=== PATIENT | female | born 1945 | race Caucasian/White ===

== ENCOUNTER 2018-01-23 20:05 | Inpatient (IN) | payer OTHER ==
[~2018-01-23] VITALS: Ht 165.1 cm; Wt 74.8 kg
[~2018-01-23 20:05] MED LIST: ALBU18HF IH; AZIT250T PO; CITA10TA8 PO; TIOT18CA IH
--- NOTE | 2018-01-23 20:22 | ED.ADGEN ---
Past History Past Medical History: Angina, CAD, CVA, Diabetes, Hypertension, UTI, Other Adult General Chief Complaint Chief Complaint ".. I been having some chest pain.. or discomfort... just cant get comfortable...".." I ate some meat loaf.. but this discomfort started about 5... " HPI HPI Patient is a 72 year old female who presents with above hx and chest pain. Pt. rates her pain as 6/10, central and non radiating. Nothing seemed to help the discomfort. Pt. no longer smokes. Pt. denies prior cardiac hx. Does have hx of prior CVA and HTN. Pt. has followed with Dr. Salinas and also has seen Marivel Guillermo. Pt,. denies any trauma. No hx of travel or ill contacts. No fevers or cough. Review of Systems Review of Systems Constitutional: Denies fever or chills [] Eyes: Denies change in visual acuity, redness, or eye pain [] HENT: Denies nasal congestion or sore throat [] Respiratory: Denies cough or shortness of breath [] Cardiovascular: No additional information not addressed in HPI [] GI: Denies abdominal pain, nausea, vomiting, bloody stools or diarrhea [] : Denies dysuria or hematuria [] Musculoskeletal: Denies back pain or joint pain [] Integument: Denies rash or skin lesions [] Neurologic: Denies headache, focal weakness or sensory changes [] Endocrine: Denies polyuria or polydipsia [] All other systems were reviewed and found to be within normal limits, except as documented in this note. Family History Family History Non-contributory Current Medications Current Medications Current Medications Medications (Trade) Dose Ordered Sig/Edmond Start Time Stop Time Status Last Admin Dose Admin Aspirin (Children'S Aspirin) 324 mg 1X ONCE 01/23/18 21:00 01/23/18 21:01 DC Ceftriaxone Sodium 1 gm/ Sodium Chloride 50 ml @ 100 mls/hr 1X ONCE 01/23/18 22:30 01/23/18 22:59 UNV Morphine Sulfate (Morphine 2mg Syringe) 2 mg 1X ONCE 01/23/18 21:00 01/23/18 21:01 DC Nitroglycerin (Nitro-Bid Oint) 1 inch 1X ONCE 01/23/18 21:00 01/23/18 21:01 DC 01/23/18 21:00 0.5 INCH Sodium Chloride 1,000 ml @ 100 mls/hr Q10H 01/23/18 21:00 01/24/18 06:59 01/23/18 20:49 100 MLS/HR Allergies Allergies Ibuprofen Physical Exam Physical Exam Constitutional: Moderately acute distress, non-toxic appearance. [] HENT: Normocephalic, atraumatic, bilateral external ears normal, oropharynx moist, no oral exudates, nose normal. [] Eyes: PERRLA, EOMI, conjunctiva normal, no discharge. [] Neck: Normal range of motion, no tenderness, supple, no stridor. [] Cardiovascular: Tachycardic Heart rate regular rhythm, no murmur [] Lungs & Thorax: Bilateral breath sounds equal at apex with min. wheeze on auscultation [] Abdomen: Bowel sounds normal, soft, no tenderness, no masses, no pulsatile masses. [] Skin: Warm, dry, no erythema, no rash. [] Back: No tenderness, no CVA tenderness. [] Extremities: No tenderness, no cyanosis, no clubbing, ROM intact, no edema. [] No cording appreciated. Arthritic changes. Neurologic: Alert and oriented X 3, normal motor function, normal sensory function, no focal deficits noted. [] Psychologic: Affect anxious, judgement normal, mood normal. [] Current Patient Data Vital Signs Vital Signs Date Time Temp Pulse Resp B/P (MAP) Pulse Ox O2 Delivery O2 Flow Rate FiO2 01/23/18 22:00 65 20 121/51 (74) 96 Room Air 01/23/18 20:05 97.6 Lab Results Laboratory Tests Test 01/23/18 20:39 01/23/18 21:21 White Blood Count 10.0 x10^3/uL (4.0-11.0) Red Blood Count 4.55 x10^6/uL (3.50-5.40) Hemoglobin 14.2 g/dL (12.0-15.5) Hematocrit 41.8 % (36.0-47.0) Mean Corpuscular Volume 92 fL (79-100) Mean Corpuscular Hemoglobin 31 pg (25-35) Mean Corpuscular Hemoglobin Concent 34 g/dL (31-37) Red Cell Distribution Width 13.9 % (11.5-14.5) Platelet Count 217 x10^3/uL (140-400) Neutrophils (%) (Auto) 58 % (31-73) Lymphocytes (%) (Auto) 33 % (24-48) Monocytes (%) (Auto) 7 % (0-9) Eosinophils (%) (Auto) 2 % (0-3) Basophils (%) (Auto) 1 % (0-3) Neutrophils # (Auto) 5.7 x10^3uL (1.8-7.7) Lymphocytes # (Auto) 3.3 x10^3/uL (1.0-4.8) Monocytes # (Auto) 0.7 x10^3/uL (0.0-1.1) Eosinophils # (Auto) 0.2 x10^3/uL (0.0-0.7) Basophils # (Auto) 0.1 x10^3/uL (0.0-0.2) Prothrombin Time 10.7 SEC (9.4-11.4) Prothrombin Time INR 1.0 (0.9-1.1) PTT 27 SEC (23-33) D-Dimer (Ruthie) 0.63 mg/L (0.00-0.50) H Sodium Level 142 mmol/L (136-145) Potassium Level 3.5 mmol/L (3.5-5.1) Chloride Level 106 mmol/L (98-107) Carbon Dioxide Level 27 mmol/L (21-32) Anion Gap 9 (6-14) Blood Urea Nitrogen 16 mg/dL (7-20) Creatinine 1.0 mg/dL (0.6-1.0) Estimated GFR (Cockcroft-Gault) 54.3 Glucose Level 129 mg/dL (70-99) H Calcium Level 8.4 mg/dL (8.5-10.1) L Magnesium Level 1.9 mg/dL (1.8-2.4) Total Bilirubin 0.3 mg/dL (0.2-1.0) Direct Bilirubin 0.1 mg/dL (0.0-0.2) Aspartate Amino Transferase (AST) 15 U/L (15-37) Alanine Aminotransferase (ALT) 19 U/L (14-59) Alkaline Phosphatase 100 U/L (46-116) Creatine Kinase 45 U/L (26-192) Creatine Kinase MB (Mass) 0.5 ng/mL (0.0-3.6) Creatine Kinase MB Relative Index 1.1 % (0-4) Troponin I Quantitative < 0.017 ng/mL (0-0.055) PN-Gte-I-Type Natriuretic Peptide 112 pg/mL (0-124) Total Protein 7.1 g/dL (6.4-8.2) Albumin 3.4 g/dL (3.4-5.0) Lipase 175 U/L (73-393) Urine Collection Type Unknown Urine Color Yellow Urine Clarity Clear Urine pH 6.0 Urine Specific [place] 1.025 Urine Protein Neg (NEG-TRACE) Urine Glucose (UA) Neg mg/dL (NEG) Urine Ketones (Stick) Trace mg/dL (NEG) Urine Blood Neg (NEG) Urine Nitrite Pos (NEG) Urine Bilirubin Neg (NEG) Urine Urobilinogen Dipstick 0.2 mg/dL (0.2 mg/dL) Urine Leukocyte Esterase Trace (NEG) Urine RBC Occ /HPF (0-2) Urine WBC 5-10 /HPF (0-4) Urine Squamous Epithelial Cells Occ /LPF Urine Bacteria Mod /HPF (0-FEW) Urine Mucus Mod /LPF Urine Opiates Screen Neg (NEG) Urine Methadone Screen Neg (NEG) Urine Barbiturates Neg (NEG) Urine Phencyclidine Screen Neg (NEG) Urine Amphetamine/Methamphetamine Neg (NEG) Urine Benzodiazepines Screen Neg (NEG) Urine Cocaine Screen Neg (NEG) Urine Cannabinoids Screen Neg (NEG) Urine Ethyl Alcohol Neg (NEG) EKG EKG My interpretation of EKG shows a sinus rhythm at 95 bpm. There IS SOME NONSPECIFIC ANTERIOR LATERAL CHANGES. BUT NO FINDINGS OF ACUTE STEMI OF CONTRALATERAL CHANGES. THERE IS SOME BASELINE ARTIFACT[] Radiology/Procedures Radiology/Procedures My interpretation of chest x-ray shows no acute cardiopulmonary[] changes. Does have findings of somewhat emphysematous type pattern. Does have findings of degenerative joint changes. Course & Med Decision Making Course & Med Decision Making Pertinent Labs and Imaging studies reviewed. (See chart for details). Stress presentation, testing and treatment plan with Dr. Salinas. Will admit for further evaluation and treatment. Consult placed with cardiology. [] Final Impression Final Impression 1. Chest Pain[] 2. HTN 3. Elevated D-dimer 4. DM 5. UTI 6. Hx. CVA Problems: Dragon Disclaimer Dragon Disclaimer This electronic medical record was generated, in whole or in part, using a voice recognition dictation system. DARELL GOVEA MD Jan 23, 2018 20:22
[2018-01-23] MEDS ORDERED: MORPHINE SULFATE 2 MG/ML DISP.SYRIN. IV ONE (21:00)
[2018-01-23] MEDS ORDERED: ASPIRIN 81 MG TAB.CHEW PO ONE (21:00)
[2018-01-23] MEDS ORDERED: IV NORMAL SALINE 1,000ML 1,000 ML IV SCH (21:00)
[2018-01-23] MEDS ORDERED: NITROGLYCERIN OINT 1 GM PACKET. TP ONE (21:00)
[2018-01-23 21:02] LABS: BASO # 0.1 x10^3/uL (0.0-0.2); BASO % 1 % (0-3); EOS # 0.2 x10^3/uL (0.0-0.7); EOS % 2 % (0-3); HEMATOCRIT 41.8 % (36.0-47.0); HEMOGLOBIN 14.2 g/dL (12.0-15.5); LYMPH # 3.3 x10^3/uL (1.0-4.8); LYMPH % 33 % (24-48); MEAN CORPUSCULAR HEMOGLOBIN 31 pg (25-35); MEAN CORPUSCULAR HGB CONC 34 g/dL (31-37); MEAN CORPUSCULAR VOLUME 92 fL (79-100); MONO # 0.7 x10^3/uL (0.0-1.1); MONO % 7 % (0-9); NEUT # 5.7 x10^3uL (1.8-7.7); NEUT % 58 % (31-73); PLATELET COUNT 217 x10^3/uL (140-400); RED BLOOD COUNT 4.55 x10^6/uL (3.50-5.40); RED CELL DISTRIBUTION WIDTH 13.9 % (11.5-14.5)
[2018-01-23 21:19] LABS: DIRECT BILIRUBIN 0.1 mg/dL (0.0-0.2); GFR 54.3; POTASSIUM 3.5 mmol/L (3.5-5.1); TOTAL BILIRUBIN 0.3 mg/dL (0.2-1.0); TOTAL PROTEIN 7.1 g/dL (6.4-8.2)
[2018-01-23 21:27] LABS: ALBUMIN 3.4 g/dL (3.4-5.0); CALCIUM 8.4 mg/dL (8.5-10.1); MAGNESIUM 1.9 mg/dL (1.8-2.4)
--- NOTE | 2018-01-23 21:33 | EKG ---
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
[2018-01-23 21:48] LABS: BARBITURATES NEG (NEG); BENZODIAZEPINES NEG (NEG); CANNABINOIDS NEG (NEG); COCAINE NEG (NEG); METHADONE NEG (NEG); OPIATES NEG (NEG); PHENCYCLIDINE NEG (NEG)
[2018-01-23 21:54] LABS: AMPHETAMINE/METHAMPHETAMINE NEG (NEG)
[2018-01-23 22:07] LABS: BACTERIA,URINE MOD /HPF (0-FEW); BILIRUBIN,URINE NEG (NEG); CLARITY,URINE CLEAR; GLUCOSE,URINE NEG (NEG); NITRITE,URINE POS (NEG); RBC,URINE OCC /HPF (0-2); SQUAMOUS EPITHELIAL CELL,UR OCC /LPF; UROBILINOGEN,URINE 0.2 mg/dL (0.2 mg/dL)
[2018-01-23 22:08] LABS: COLOR,URINE YELLOW
[2018-01-23] MEDS ORDERED: cefTRIAXone IV Push 1 GM VIAL. IVP ONE (22:45)
[2018-01-23] MEDS ORDERED: ONDANSETRON PF 4 MG/2 ML VIAL. IV PRN (22:45)
[2018-01-23] MEDS ORDERED: IOHEXOL 300 MG/ML 75 ML VIAL. IV ONE (23:00)
[2018-01-23] MEDS ORDERED: CONTRAST GIVEN MC PRN (23:00)
[2018-01-23] MEDS ORDERED: ANTI-COAG MONITOR BY PHARMACY. MC PRN (23:00)
[2018-01-23] MEDS ORDERED: IV RINGERS SOLUTION,LACTATED 1,000 ML IV ONE (23:00)
[2018-01-23] MEDS ORDERED: ENOXAPARIN ** NOTE DOSE ** SYRINGE SQ ONE (23:00)
--- NOTE | 2018-01-24 00:02 | RAD ---
CTA Chest with contrast: Clinical History: NO PREVIOUS FOR COMPARISON
GAVE OMNI 300 75ML IV
CHEST PAIN, ELEVATED DDIMER Shortness of breath. Axial helical images of the chest were obtained after the administration of 75 milliliters of Omni 300 and timed appropriately for a pulmonary arterial study. Conventional axial reconstruction was performed in addition to coronal, sagittal and bilateral oblique MIP (maximum intensity projection). This study was ordered to detect possible pulmonary embolism. There are no filling defects to suggest pulmonary embolism. The more peripheral subsegmental pulmonary arteries are not well opacified limiting our sensitivity for small peripheral pulmonary emboli. The lungs and pleural margins are clear. There is no mediastinal or hilar lymphadenopathy. The thoracic aorta appears normal. Impression: 1. No evidence of pulmonary embolism. 2. No significant findings. PQRS Compliance Statement: One or more of the following individualized dose reduction techniques were utilized for this examination: 1. Automated exposure control 2. Adjustment of the mA and/or kV according to patient size 3. Use of iterative reconstruction technique Electronically signed by: Farshad Rubalcava III, MD (01/23/2018 11:58 PM) [id number]
[2018-01-24 00:18] VITALS: BP 159/71
[2018-01-24] MEDS ORDERED: ATOR40TA59 PO (00:49)
[2018-01-24] MEDS ORDERED: ASPI81TA50 PO (00:49)
[2018-01-24 05:34] VITALS: BP 135/83
[2018-01-24 06:13] LABS: BASO # 0.1 x10^3/uL (0.0-0.2); BASO % 1 % (0-3); EOS # 0.2 x10^3/uL (0.0-0.7); EOS % 2 % (0-3); HEMATOCRIT 37.9 % (36.0-47.0); HEMOGLOBIN 13.1 g/dL (12.0-15.5); LYMPH # 3.2 x10^3/uL (1.0-4.8); LYMPH % 30 % (24-48); MEAN CORPUSCULAR HEMOGLOBIN 32 pg (25-35); MEAN CORPUSCULAR HGB CONC 34 g/dL (31-37); MEAN CORPUSCULAR VOLUME 92 fL (79-100); MONO # 0.8 x10^3/uL (0.0-1.1); MONO % 8 % (0-9); NEUT # 6.2 x10^3uL (1.8-7.7); NEUT % 59 % (31-73); PLATELET COUNT 195 x10^3/uL (140-400); RED BLOOD COUNT 4.11 x10^6/uL (3.50-5.40); WHITE BLOOD COUNT 10.5 x10^3/uL (4.0-11.0)
[2018-01-24 06:17] LABS: CREATININE 0.7 mg/dL (0.6-1.0); POTASSIUM 3.7 mmol/L (3.5-5.1)
--- NOTE | 2018-01-24 08:11 | RAD ---
Portable chest, 01/23/2018: History: Chest pain The heart size and pulmonary vascularity are normal. No pulmonary infiltrate is seen. There is no evidence of pleural fluid. IMPRESSION: No acute cardiopulmonary abnormality is detected.
[2018-01-24] MEDS ORDERED: ALBUTEROL SULFATE 2.5 MG/3 ML NEBU. NEB PRN (09:00)
[2018-01-24] MEDS: NITROGLYCERIN OINT 1 GM PACKET. TP SCH ×4 (09:00→20:25)
[2018-01-24] MEDS ORDERED: ENOXAPARIN ** NOTE DOSE ** SYRINGE SQ SCH (09:00)
[2018-01-24] MEDS ORDERED: ASPIRIN 81 MG TAB.CHEW PO SCH (09:00)
--- NOTE | 2018-01-24 09:03 | PDOC2 ---
MARISSA ROBERTS APRN 01/24/18 0903: CONSULT Date of Admission DATE: 01/24/18 TIME: 09:02 Reason for Consult: chest pain Problem List Problems Medical Problems: (1) Chest pain Status: Acute History of Present Illness Ms Carter is a 72 year old female with history of hyperlipidemia who presents with complaints of chest pain. She reports pain in her upper midsternal area, sharp in nature that started while at rest. She denies any exacerbating or relieving factors and reports pain has been constant and is improved but still present. She denies any prior episodes of chest pain or discomfort. She reports dyspnea on exertion with ambulating 20 feet to bathroom and back. She reports a decline in functional capacity secondary to fatigue and dyspnea over the last 3-6 months. She is able to vacuum in her home about 1/3 of a room prior to needing to sit. 1 year ago she reports no issues. She denies congestive symptoms, palpitations, lightheadedness or syncope. She ambulates with a walker due to instability. She reports 4 falls in the last year. Past Medical History hyperlipidemia, CVA, breast cancer, UTI Past Surgical History: Appendectomy, Cholecystectomy Family History cancer Social History prior smoker, quit 2015, no ETOH or illicit drugs Current Medications Current Medications Aspirin (Children'S Aspirin) 324 mg 1X ONCE PO ; Start 01/23/18 at 21:00; Stop 01/23/18 at 21:01; Status DC Morphine Sulfate (Morphine 2mg Syringe) 2 mg 1X ONCE IV ; Start 01/23/18 at 21: 00; Stop 01/23/18 at 21:01; Status DC Sodium Chloride 1,000 ml @ 100 mls/hr Q10H IV Last administered on 01/23/18at 20:49; Start 01/23/18 at 21:00; Stop 01/24/18 at 07:00; Status DC Nitroglycerin (Nitro-Bid Oint) 1 inch 1X ONCE TP Last administered on at 21:00; Start 01/23/18 at 21:00; Stop 01/23/18 at 21:01; Status DC Enoxaparin Sodium (Lovenox 80mg Syringe) 80 mg 1X ONCE SQ Last administered on 01/23/18at 23:09; Start 01/23/18 at 23:00; Stop 01/23/18 at 23:01; Status DC Ceftriaxone Sodium 1 gm/ Sodium Chloride 50 ml @ 100 mls/hr 1X ONCE IV ; Start 01/23/18 at 22:30; Stop 01/23/18 at 22:59; Status UNV Ceftriaxone Sodium (Rocephin) 1 gm 1X ONCE IVP Last administered on 01/23/18at 23:09; Start 01/23/18 at 22:45; Stop 01/23/18 at 22:46; Status DC Ondansetron HCl (Zofran) 4 mg PRN Q4HRS PRN IV NAUSEA/VOMITING 1ST CHOICE; Start 01/23/18 at 22:45; Stop 01/24/18 at 22:44 Aspirin (Children'S Aspirin) 81 mg DAILY PO ; Start 01/24/18 at 09:00; Stop at 09:00; Status DC Enoxaparin Sodium (Lovenox 80mg Syringe) 80 mg BID SQ ; Start 01/24/18 at 09:00 ; Stop 01/24/18 at 09:00; Status DC Nitroglycerin (Nitro-Bid Oint) 0.5 inch TID TP ; Start 01/24/18 at 09:00 Ceftriaxone Sodium 1 gm/ Sodium Chloride 50 ml @ 100 mls/hr DAILY IV ; Start at 09:00; Status UNV Lactated Ringer's 1,000 ml @ 1,000 mls/hr 1X ONCE IV Last administered on at 23:00; Start 01/23/18 at 23:00; Stop 01/23/18 at 23:59; Status DC Info (Anti-Coagulation Monitoring By Pharmacy) 1 each PRN DAILY PRN MC SEE COMMENTS; Start 01/23/18 at 23:00 Ceftriaxone Sodium (Rocephin) 1 gm Q24H IVP ; Start 01/24/18 at 21:00 Lactobacillus Rhamnosus (Culturelle) 1 cap BID PO ; Start 01/24/18 at 09:00 Iohexol (Omnipaque 300 Mg/ml) 75 ml 1X ONCE IV Last administered on 01/23/18at 23:17; Start 01/23/18 at 23:00; Stop 01/23/18 at 23:01; Status DC Info (Do NOT chart on this entry -- for MONITORING) 1 each PRN DAILY PRN MC SEE COMMENTS; Start 01/23/18 at 23:00; Stop 01/25/18 at 22:59 Aspirin (Aspirin Enteric Coated) 81 mg DAILY PO ; Start 01/24/18 at 09:00 Atorvastatin Calcium (Lipitor) 40 mg QHS PO ; Start 01/24/18 at 21:00 Enoxaparin Sodium (Lovenox) 40 mg Q24H SQ ; Start 01/24/18 at 21:00 Albuterol/ Ipratropium (Duoneb) 3 ml RTQID NEB ; Start 01/24/18 at 12:00 Albuterol Sulfate (Ventolin) 2.5 mg PRN Q6HRS PRN NEB SHORTNESS OF BREATH; Start 01/24/18 at 09:00 Active Scripts Active Reported Aspir-Low (Aspirin) 81 Mg Tablet.dr 1 Tab PO DAILY Atorvastatin Calcium 40 Mg Tablet 1 Tab PO HS Allergies: Coded Allergies: ibuprofen (Verified Allergy, Intermediate, 01/23/18) Review of System as per HPI or negative General: Alert, Oriented X3, Cooperative, mild distress HEENT: Atraumatic, EOMI Lungs: Other (decreased bilaterally without crackles, wheezing or rhonchi) Heart: Regular rate, Normal S1, Normal S2 Abdomen: Normal bowel sounds, Soft, No tenderness Extremities: No cyanosis, No edema, Normal pulses Neuro: Normal speech, Strength at 5/5 X4 ext Psych/Mental Status: Mental status NL, Mood NL VITALS Vital Signs Date Time Temp Pulse Resp B/P (MAP) Pulse Ox O2 Delivery O2 Flow Rate FiO2 01/24/18 05:34 97.5 68 18 135/83 (100) 95 Room Air Labs Laboratory Tests Test 01/23/18 20:39 01/23/18 21:21 01/24/18 04:00 01/24/18 05:43 White Blood Count 10.0 x10^3/uL (4.0-11.0) 10.5 x10^3/uL (4.0-11.0) Red Blood Count 4.55 x10^6/uL (3.50-5.40) 4.11 x10^6/uL (3.50-5.40) Hemoglobin 14.2 g/dL (12.0-15.5) 13.1 g/dL (12.0-15.5) Hematocrit 41.8 % (36.0-47.0) 37.9 % (36.0-47.0) Mean Corpuscular Volume 92 fL (79-100) 92 fL (79-100) Mean Corpuscular Hemoglobin 31 pg (25-35) 32 pg (25-35) Mean Corpuscular Hemoglobin Concent 34 g/dL (31-37) 34 g/dL (31-37) Red Cell Distribution Width 13.9 % (11.5-14.5) 14.0 % (11.5-14.5) Platelet Count 217 x10^3/uL (140-400) 195 x10^3/uL (140-400) Neutrophils (%) (Auto) 58 % (31-73) 59 % (31-73) Lymphocytes (%) (Auto) 33 % (24-48) 30 % (24-48) Monocytes (%) (Auto) 7 % (0-9) 8 % (0-9) Eosinophils (%) (Auto) 2 % (0-3) 2 % (0-3) Basophils (%) (Auto) 1 % (0-3) 1 % (0-3) Neutrophils # (Auto) 5.7 x10^3uL (1.8-7.7) 6.2 x10^3uL (1.8-7.7) Lymphocytes # (Auto) 3.3 x10^3/uL (1.0-4.8) 3.2 x10^3/uL (1.0-4.8) Monocytes # (Auto) 0.7 x10^3/uL (0.0-1.1) 0.8 x10^3/uL (0.0-1.1) Eosinophils # (Auto) 0.2 x10^3/uL (0.0-0.7) 0.2 x10^3/uL (0.0-0.7) Basophils # (Auto) 0.1 x10^3/uL (0.0-0.2) 0.1 x10^3/uL (0.0-0.2) Prothrombin Time 10.7 SEC (9.4-11.4) Prothromb Time International Ratio 1.0 (0.9-1.1) Activated Partial Thromboplast Time 27 SEC (23-33) D-Dimer (Ruthie) 0.63 mg/L (0.00-0.50) Sodium Level 142 mmol/L (136-145) 143 mmol/L (136-145) Potassium Level 3.5 mmol/L (3.5-5.1) 3.7 mmol/L (3.5-5.1) Chloride Level 106 mmol/L (98-107) 108 mmol/L (98-107) Carbon Dioxide Level 27 mmol/L (21-32) 28 mmol/L (21-32) Anion Gap 9 (6-14) 7 (6-14) Blood Urea Nitrogen 16 mg/dL (7-20) 12 mg/dL (7-20) Creatinine 1.0 mg/dL (0.6-1.0) 0.7 mg/dL (0.6-1.0) Estimated GFR (Cockcroft-Gault) 54.3 82.0 Glucose Level 129 mg/dL (70-99) 88 mg/dL (70-99) Calcium Level 8.4 mg/dL (8.5-10.1) 8.0 mg/dL (8.5-10.1) Magnesium Level 1.9 mg/dL (1.8-2.4) Total Bilirubin 0.3 mg/dL (0.2-1.0) Direct Bilirubin 0.1 mg/dL (0.0-0.2) Aspartate Amino Transf (AST/SGOT) 15 U/L (15-37) Alanine Aminotransferase (ALT/SGPT) 19 U/L (14-59) Alkaline Phosphatase 100 U/L (46-116) Creatine Kinase 45 U/L (26-192) Creatine Kinase MB (Mass) 0.5 ng/mL (0.0-3.6) Creatine Kinase MB Relative Index 1.1 % (0-4) Troponin I Quantitative < 0.017 ng/mL (0-0.055) < 0.017 ng/mL (0-0.055) QL-Cnk-S-Type Natriuretic Peptide 112 pg/mL (0-124) Total Protein 7.1 g/dL (6.4-8.2) Albumin 3.4 g/dL (3.4-5.0) Lipase 175 U/L (73-393) Urine Collection Type Unknown Urine Color Yellow Urine Clarity Clear Urine pH 6.0 Urine Specific [place] 1.025 Urine Protein Neg (NEG-TRACE) Urine Glucose (UA) Neg mg/dL (NEG) Urine Ketones (Stick) Trace mg/dL (NEG) Urine Blood Neg (NEG) Urine Nitrite Pos (NEG) Urine Bilirubin Neg (NEG) Urine Urobilinogen Dipstick 0.2 mg/dL (0.2 mg/dL) Urine Leukocyte Esterase Trace (NEG) Urine RBC Occ /HPF (0-2) Urine WBC 5-10 /HPF (0-4) Urine Squamous Epithelial Cells Occ /LPF Urine Bacteria Mod /HPF (0-FEW) Urine Mucus Mod /LPF Urine Opiates Screen Neg (NEG) Urine Methadone Screen Neg (NEG) Urine Barbiturates Neg (NEG) Urine Phencyclidine Screen Neg (NEG) Urine Amphetamine/Methamphetamine Neg (NEG) Urine Benzodiazepines Screen Neg (NEG) Urine Cocaine Screen Neg (NEG) Urine Cannabinoids Screen Neg (NEG) Urine Ethyl Alcohol Neg (NEG) Images CXR - no acute abn, EKG- sinus rhythm without acute ischemic changes, CTA- Impression: 1. No evidence of pulmonary embolism. 2. No significant findings. Assessment/Plan 1. Chest pain, typical - CE negative x2, EKG without acute ischemic changes 2. dyspnea on exertion - suggest 6 min walk and consider outpatient PFT 3. hyperlipidemia - check lipids, continue statin 4. UTI - per PCP Suggest echocardiogram for LV function and wall motion and 6 minute walk. If no significant abnormalities would suggest MPI as dyspnea could be anginal equivalent. Continue aspirin and statin and check lipids. Consider beta vahid after 6 min walk. Problems: BRO DE LA GARZA MD 01/24/18 1625: CONSULT Allergies: Coded Allergies: ibuprofen (Verified Allergy, Intermediate, 01/23/18) Assessment/Plan Patient seen and examined. Agree with [employer]INEER's assessment and plan. Chest pain with mixed features. Myocardial infarction been ruled out. Check 2-D echo to assess LV systolic function and Lexiscan nuclear stress test to rule out ischemia. Thank you for your consultation. Problems: MARISSA ROBERTS APRN Jan 24, 2018 09:03 BRO DE LA GARZA MD Jan 24, 2018 16:25
[2018-01-24] MEDS: ASPIRIN ENTERIC COATED 81 MG TABLET.DR. PO SCH (09:05)
[2018-01-24] MEDS: LACTOBACILLUS RHAMNOSUS GG 1 CAPSULE. PO SCH ×2 (09:05→20:24)
[2018-01-24] MEDS ORDERED: IPRATRPIUM/ALBUTEROL 0.5/2.5MG 3 ML NEBU. ONE (09:27)
[2018-01-24] MEDS: IPRATRPIUM/ALBUTEROL 0.5/2.5MG 3 ML NEBU. NEB SCH ×3 (09:48→20:00)
[2018-01-24 11:14] VITALS: BP 123/71
--- NOTE | 2018-01-24 11:20 | HP ---
ADMIT DATE: 01/23/2018 HISTORY OF PRESENT ILLNESS: The patient admitted with chest pain, came in through the Emergency Room. Apparently, she was just at rest when she began to have chest pain, substernal and radiated up into her neck. She denies nausea or vomiting with that, although did feel very weakened with it. The patient noted it was about 6/10 as it radiated up her neck. The only thing relieved was some nitroglycerin. PAST MEDICAL HISTORY: Angina, coronary artery disease, history of stroke, diabetes, hypertension, breast cancer, urinary tract infection, incontinence. SOCIAL HISTORY: Stopped smoking, 2016. Pneumococcal vaccines up-to-date. FAMILY HISTORY: Father with cancer. REVIEW OF SYSTEMS: Some shortness of breath accompanied the chest pain, otherwise denies headaches, visual changes, blurred vision, double vision. The patient otherwise denies any problem with bowels or bladder. Legs are negative for any pain. PHYSICAL EXAMINATION: GENERAL: This is a pleasant white female looking very anxious. VITAL SIGNS: Blood pressure 160/88, respiratory rate 22, pulse 99, temperature 97.6. NEUROLOGIC: The patient is alert and oriented. HEENT: Head: Atraumatic, normocephalic. Eyes: PERRLA without jaundice. Mouth and throat were normal. NECK: Supple. LUNGS: Diminished throughout, poor movement of the air. CARDIOVASCULAR: Regular sinus rhythm, S1, S2, without murmur, rub, thrill, or extra heart sounds. ABDOMEN: Soft, nontender. No rebound or guarding. Positive bowel sounds, no hepatosplenomegaly. EXTREMITIES: No clubbing, cyanosis, or edema. NEUROLOGIC: The patient was alert and oriented x 3. IMPRESSION AND PLAN: Chest pain, rule out angina, coronary artery disease, history of breast cancer, elevated D-dimer, shortness of breath, . Continue to monitor the patient accordingly make further evaluation on her as indicated. We will get cardiac enzymes, consult Cardiology. CORINNA DIANE MD DR: BRADY/olivia JOB#: [id number] / [id number]
[2018-01-24 15:54] VITALS: BP 117/64
--- NOTE | 2018-01-24 18:14 | RAD ---
INDICATION: Chest pain and elevated d-dimer COMPARISON: None. TECHNIQUE: Grayscale, color and doppler ultrasound images were obtained of the bilateral lower extremity venous vasculature. RIGHT: No thrombus identified in the common femoral vein, femoral vein, popliteal vein or visualized calf veins. LEFT: No thrombus identified in the common femoral vein, femoral vein, popliteal vein or visualized calf veins. IMPRESSION: 1. No thrombus identified in deep venous system of bilateral lower extremities. Electronically signed by: Enrique De Los Santos MD (01/24/2018 6:10 PM) [facility]
[2018-01-24 19:18] VITALS: BP 113/73
[2018-01-24] MEDS: ATORVASTATIN CALCIUM 20 MG TABLET PO SCH (20:25)
[2018-01-24] MEDS: ENOXAPARIN 40 MG/0.4 ML DISP.SYRIN. SQ SCH (20:26)
[2018-01-24] MEDS ORDERED: cefTRIAXone IV Push 1 GM VIAL. IVP SCH (21:00)
[2018-01-24 22:29] VITALS: BP 125/54
[2018-01-25] MEDS: IPRATRPIUM/ALBUTEROL 0.5/2.5MG 3 ML NEBU. NEB SCH ×4 (04:27→20:00)
--- NOTE | 2018-01-25 05:17 | CARD ---
MR#: [id number] Date of Study: 01/24/2018 Ordering Physician: MARISSA ROBERTS, Referring Physician: CORINNA DIANE, Tech: Ana Nguyen RDCS APPROVED REPORT EXAM: Two-dimensional and M-mode echocardiogram with Doppler and color Doppler. Other Information Quality : FairHR: 66bpm Rhythm : NSR INDICATION Chest Pain 2D DIMENSIONS Left Atrium(2D)2.8 (1.6-4.0cm)IVSd0.9 (0.7-1.1cm) Aortic Root(2D)2.4 (2.0-3.7cm)LVDd3.0 (3.9-5.9cm) LVOT Diameter2.0 (1.8-2.4cm)PWd0.8 (0.7-1.1cm) LVDs2.3 (2.5-4.0cm)FS (%) 25.1 % SV18.5 mlLVEF(%)51.2 (>50%) Aortic Valve AoV Peak Elvis.137.0cm/sAoV VTI27.2cm AO Peak GR.7.5mmHgLVOT Peak Elvis.108.2cm/s LVOT VTI 24.81cmAO Mean GR.4mmHg CITLALLI (VMAX)2.98yi1VID (VTI)2.95cm2 Mitral Valve MV E Lgxudpsf285.7cm/sMV DECEL AAAB024ol MV A Vpvdxlyc55.9cm/sE/A Ratio1.3 MV A Hvkxwitx497qr Tricuspid Valve TR P. Znidwfrg907qa/sTR Peak Gr.41mmHg Pulmonary Vein S1 Hddcwvhd47.4cm/sD2 Meuwqewl82.5cm/s LEFT VENTRICLE The left ventricle is normal size. There is normal left ventricular wall thickness. The left ventricu lar systolic function is normal. The ejection fraction is estimated at 60%. There is normal LV segmen octavia wall motion. No left ventricle thrombus noted on this study. There is no ventricular septal defec t visualized. There is no left ventricular aneurysm. There is no mass noted in the left ventricle. RIGHT VENTRICLE The right ventricle is normal size. There is normal right ventricular wall thickness. The right ventr icular systolic function is normal. ATRIA The left atrium size is normal. LAV index 17.62ml/m2 The right atrium size is normal. The interatrial septum is intact with no evidence for an atrial septal defect or patent foramen ovale as noted on 2- D or Doppler imaging. AORTIC VALVE The aortic valve is normal in structure and function. Doppler and Color Flow revealed no significant aortic regurgitation. There is no significant aortic valvular stenosis. There is no aortic valvular v egetation. MITRAL VALVE The mitral valve is normal in structure and function. There is no evidence of mitral valve prolapse. There is no mitral valve stenosis. Doppler and Color-flow revealed trace mitral regurgitation. TRICUSPID VALVE The tricuspid valve is normal in structure and function. Doppler and Color Flow revealed mild tricusp id regurgitation. There is no tricuspid valve prolapse or vegetation. There is no tricuspid valve roosevelt nosis. PULMONIC VALVE The pulmonary valve is normal in structure and function. Doppler and Color Flow revealed trace pulmon ic valvular regurgitation. There is no pulmonic valvular stenosis. GREAT VESSELS The aortic root is normal in size. The IVC is normal in size and collapses >50% with inspiration. PERICARDIAL EFFUSION There is no pleural effusion. There is no evidence of significant pericardial effusion. Critical Notification Critical Value: No <Conclusion> The left ventricular systolic function is normal. The ejection fraction is estimated at 60%. There is normal LV segmental wall motion. Tace mitral regurgitation. Mild tricuspid regurgitation. There is no evidence of significant pericardial effusion. Signed by : Dominik Pereyra, Electronically Approved : 01/25/2018 05:16:23
[2018-01-25 05:37] VITALS: BP 132/67
[2018-01-25] MEDS ORDERED: REGADENOSON 0.4 MG/5 ML DISP.SYRIN. IV ONE (09:30)
[2018-01-25] MEDS ORDERED: KETOROLAC 15 MG/ML VIAL. IV ONE (09:45)
--- NOTE | 2018-01-25 10:37 | EKG ---
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
[2018-01-25 11:26] VITALS: BP 94/66
[2018-01-25] MEDS: ASPIRIN ENTERIC COATED 81 MG TABLET.DR. PO SCH (11:36)
[2018-01-25] MEDS: LACTOBACILLUS RHAMNOSUS GG 1 CAPSULE. PO SCH ×2 (11:36→21:18)
[2018-01-25] MEDS: NITROGLYCERIN OINT 1 GM PACKET. TP SCH ×3 (11:47→21:00)
[2018-01-25] MEDS: ACETAMINOPHEN 325 MG TABLET PO PRN ×2 (12:22→21:33)
--- NOTE | 2018-01-25 14:04 | EKG ---
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
[2018-01-25 15:24] VITALS: BP 103/69
--- NOTE | 2018-01-25 15:45 | PDOC ---
PROGRESS NOTES Diagnosis Problem Problems Medical Problems: (1) Chest pain Status: Acute Assessment Problems Medical Problems: (1) Chest pain Status: Acute 1. Chest pain, typical - CE negative , EKG without acute ischemic changes, normal LV function by echo. MPI pending. 2. dyspnea on exertion - abnormal 6 min walk. suggest PFTs as outpatient. mgmt per PCP 3. hyperlipidemia -continue statin, lipids pending 4. UTI - per PCP Problems: Subjective back pain, given toradol this am, no dyspnea currently, seen during stress test Objective Vital Signs Date Time Temp Pulse Resp B/P (MAP) Pulse Ox O2 Delivery O2 Flow Rate FiO2 01/25/18 15:24 97.8 84 18 103/69 (80) 95 01/25/18 11:26 Room Air Intake and Output 01/25/18 07:00 Intake Total 1968.9 ml Balance 1968.9 ml Intake Oral 1120 ml IV Total 848.9 ml # Voids 7 Abdomen: Normal bowel sounds, Soft, No tenderness Heart: Regular rate, Normal S1, Normal S2 Extremities: No cyanosis, Normal pulses General: Alert, Cooperative, No acute distress Lungs: Other (decreased bases) Neuro: Normal speech Psych/Mental Status: Mood NL Review of Relevant I have reviewed the following items ra (where applicable) has been applied. Labs Laboratory Tests Test 01/23/18 20:35 01/23/18 20:39 01/23/18 21:21 01/24/18 04:00 Triglycerides Level 145 mg/dL (0-150) Cholesterol Level 144 mg/dL (0-200) LDL Cholesterol, Calculated 72 mg/dL (0-100) VLDL Cholesterol, Calculated 29 mg/dL (0-40) Non-HDL Cholesterol Calculated 101 mg/dL (0-129) HDL Cholesterol 43 mg/dL (40-60) Cholesterol/HDL Ratio 3.0 White Blood Count 10.0 x10^3/uL (4.0-11.0) Red Blood Count 4.55 x10^6/uL (3.50-5.40) Hemoglobin 14.2 g/dL (12.0-15.5) Hematocrit 41.8 % (36.0-47.0) Mean Corpuscular Volume 92 fL (79-100) Mean Corpuscular Hemoglobin 31 pg (25-35) Mean Corpuscular Hemoglobin Concent 34 g/dL (31-37) Red Cell Distribution Width 13.9 % (11.5-14.5) Platelet Count 217 x10^3/uL (140-400) Neutrophils (%) (Auto) 58 % (31-73) Lymphocytes (%) (Auto) 33 % (24-48) Monocytes (%) (Auto) 7 % (0-9) Eosinophils (%) (Auto) 2 % (0-3) Basophils (%) (Auto) 1 % (0-3) Neutrophils # (Auto) 5.7 x10^3uL (1.8-7.7) Lymphocytes # (Auto) 3.3 x10^3/uL (1.0-4.8) Monocytes # (Auto) 0.7 x10^3/uL (0.0-1.1) Eosinophils # (Auto) 0.2 x10^3/uL (0.0-0.7) Basophils # (Auto) 0.1 x10^3/uL (0.0-0.2) Prothrombin Time 10.7 SEC (9.4-11.4) Prothromb Time International Ratio 1.0 (0.9-1.1) Activated Partial Thromboplast Time 27 SEC (23-33) D-Dimer (Rtuhie) 0.63 mg/L (0.00-0.50) Sodium Level 142 mmol/L (136-145) Potassium Level 3.5 mmol/L (3.5-5.1) Chloride Level 106 mmol/L (98-107) Carbon Dioxide Level 27 mmol/L (21-32) Anion Gap 9 (6-14) Blood Urea Nitrogen 16 mg/dL (7-20) Creatinine 1.0 mg/dL (0.6-1.0) Estimated GFR (Cockcroft-Gault) 54.3 Glucose Level 129 mg/dL (70-99) Calcium Level 8.4 mg/dL (8.5-10.1) Magnesium Level 1.9 mg/dL (1.8-2.4) Total Bilirubin 0.3 mg/dL (0.2-1.0) Direct Bilirubin 0.1 mg/dL (0.0-0.2) Aspartate Amino Transf (AST/SGOT) 15 U/L (15-37) Alanine Aminotransferase (ALT/SGPT) 19 U/L (14-59) Alkaline Phosphatase 100 U/L (46-116) Creatine Kinase 45 U/L (26-192) Creatine Kinase MB (Mass) 0.5 ng/mL (0.0-3.6) Creatine Kinase MB Relative Index 1.1 % (0-4) Troponin I Quantitative < 0.017 ng/mL (0-0.055) < 0.017 ng/mL (0-0.055) RI-Mfb-S-Type Natriuretic Peptide 112 pg/mL (0-124) Total Protein 7.1 g/dL (6.4-8.2) Albumin 3.4 g/dL (3.4-5.0) Lipase 175 U/L (73-393) Thyroid Stimulating Hormone (TSH) 13.624 uIU/mL (0.358-3.740) Urine Collection Type Unknown Urine Color Yellow Urine Clarity Clear Urine pH 6.0 Urine Specific [place] 1.025 Urine Protein Neg (NEG-TRACE) Urine Glucose (UA) Neg mg/dL (NEG) Urine Ketones (Stick) Trace mg/dL (NEG) Urine Blood Neg (NEG) Urine Nitrite Pos (NEG) Urine Bilirubin Neg (NEG) Urine Urobilinogen Dipstick 0.2 mg/dL (0.2 mg/dL) Urine Leukocyte Esterase Trace (NEG) Urine RBC Occ /HPF (0-2) Urine WBC 5-10 /HPF (0-4) Urine Squamous Epithelial Cells Occ /LPF Urine Bacteria Mod /HPF (0-FEW) Urine Mucus Mod /LPF Urine Opiates Screen Neg (NEG) Urine Methadone Screen Neg (NEG) Urine Barbiturates Neg (NEG) Urine Phencyclidine Screen Neg (NEG) Urine Amphetamine/Methamphetamine Neg (NEG) Urine Benzodiazepines Screen Neg (NEG) Urine Cocaine Screen Neg (NEG) Urine Cannabinoids Screen Neg (NEG) Urine Ethyl Alcohol Neg (NEG) Test 01/24/18 05:43 01/24/18 09:57 White Blood Count 10.5 x10^3/uL (4.0-11.0) Red Blood Count 4.11 x10^6/uL (3.50-5.40) Hemoglobin 13.1 g/dL (12.0-15.5) Hematocrit 37.9 % (36.0-47.0) Mean Corpuscular Volume 92 fL (79-100) Mean Corpuscular Hemoglobin 32 pg (25-35) Mean Corpuscular Hemoglobin Concent 34 g/dL (31-37) Red Cell Distribution Width 14.0 % (11.5-14.5) Platelet Count 195 x10^3/uL (140-400) Neutrophils (%) (Auto) 59 % (31-73) Lymphocytes (%) (Auto) 30 % (24-48) Monocytes (%) (Auto) 8 % (0-9) Eosinophils (%) (Auto) 2 % (0-3) Basophils (%) (Auto) 1 % (0-3) Neutrophils # (Auto) 6.2 x10^3uL (1.8-7.7) Lymphocytes # (Auto) 3.2 x10^3/uL (1.0-4.8) Monocytes # (Auto) 0.8 x10^3/uL (0.0-1.1) Eosinophils # (Auto) 0.2 x10^3/uL (0.0-0.7) Basophils # (Auto) 0.1 x10^3/uL (0.0-0.2) Sodium Level 143 mmol/L (136-145) Potassium Level 3.7 mmol/L (3.5-5.1) Chloride Level 108 mmol/L (98-107) Carbon Dioxide Level 28 mmol/L (21-32) Anion Gap 7 (6-14) Blood Urea Nitrogen 12 mg/dL (7-20) Creatinine 0.7 mg/dL (0.6-1.0) Estimated GFR (Cockcroft-Gault) 82.0 Glucose Level 88 mg/dL (70-99) Calcium Level 8.0 mg/dL (8.5-10.1) Troponin I Quantitative < 0.017 ng/mL (0-0.055) Microbiology 01/23/18 Urine Culture - Preliminary, Resulted 01/23/18 Urine Culture Result 1 (JIM) - Preliminary, Resulted Medications Current Medications Aspirin (Children'S Aspirin) 324 mg 1X ONCE PO ; Start 01/23/18 at 21:00; Stop 01/23/18 at 21:01; Status DC Morphine Sulfate (Morphine 2mg Syringe) 2 mg 1X ONCE IV ; Start 01/23/18 at 21: 00; Stop 01/23/18 at 21:01; Status DC Sodium Chloride 1,000 ml @ 100 mls/hr Q10H IV Last administered on 01/23/18at 20:49; Start 01/23/18 at 21:00; Stop 01/24/18 at 07:00; Status DC Nitroglycerin (Nitro-Bid Oint) 1 inch 1X ONCE TP Last administered on at 21:00; Start 01/23/18 at 21:00; Stop 01/23/18 at 21:01; Status DC Enoxaparin Sodium (Lovenox 80mg Syringe) 80 mg 1X ONCE SQ Last administered on 01/23/18at 23:09; Start 01/23/18 at 23:00; Stop 01/23/18 at 23:01; Status DC Ceftriaxone Sodium 1 gm/ Sodium Chloride 50 ml @ 100 mls/hr 1X ONCE IV ; Start 01/23/18 at 22:30; Stop 01/23/18 at 22:59; Status UNV Ceftriaxone Sodium (Rocephin) 1 gm 1X ONCE IVP Last administered on 01/23/18at 23:09; Start 01/23/18 at 22:45; Stop 01/23/18 at 22:46; Status DC Ondansetron HCl (Zofran) 4 mg PRN Q4HRS PRN IV NAUSEA/VOMITING 1ST CHOICE; Start 01/23/18 at 22:45; Stop 01/24/18 at 22:44; Status DC Aspirin (Children'S Aspirin) 81 mg DAILY PO ; Start 01/24/18 at 09:00; Stop at 09:00; Status DC Enoxaparin Sodium (Lovenox 80mg Syringe) 80 mg BID SQ ; Start 01/24/18 at 09:00 ; Stop 01/24/18 at 09:00; Status DC Nitroglycerin (Nitro-Bid Oint) 0.5 inch TID TP Last administered on 01/24/18at 20:25; Start 01/24/18 at 09:00 Ceftriaxone Sodium 1 gm/ Sodium Chloride 50 ml @ 100 mls/hr DAILY IV ; Start at 09:00; Status UNV Lactated Ringer's 1,000 ml @ 1,000 mls/hr 1X ONCE IV Last administered on at 23:00; Start 01/23/18 at 23:00; Stop 01/23/18 at 23:59; Status DC Info (Anti-Coagulation Monitoring By Pharmacy) 1 each PRN DAILY PRN MC SEE COMMENTS; Start 01/23/18 at 23:00; Status Cancel Ceftriaxone Sodium (Rocephin) 1 gm Q24H IVP ; Start 01/24/18 at 21:00; Stop at 21:00; Status DC Lactobacillus Rhamnosus (Culturelle) 1 cap BID PO Last administered on 11:36; Start 01/24/18 at 09:00 Iohexol (Omnipaque 300 Mg/ml) 75 ml 1X ONCE IV Last administered on 01/23/18at 23:17; Start 01/23/18 at 23:00; Stop 01/23/18 at 23:01; Status DC Info (Do NOT chart on this entry -- for MONITORING) 1 each PRN DAILY PRN MC SEE COMMENTS; Start 01/23/18 at 23:00; Stop 01/25/18 at 22:59 Aspirin (Aspirin Enteric Coated) 81 mg DAILY PO Last administered on 01/25/18 11:36; Start 01/24/18 at 09:00 Atorvastatin Calcium (Lipitor) 40 mg QHS PO Last administered on 01/24/18 20: 25; Start 01/24/18 at 21:00 Enoxaparin Sodium (Lovenox) 40 mg Q24H SQ Last administered on 01/24/18at 20:26 ; Start 01/24/18 at 21:00 Albuterol/ Ipratropium (Duoneb) 3 ml RTQID NEB Last administered on 01/25/18at 11 :23; Start 01/24/18 at 12:00 Albuterol Sulfate (Ventolin) 2.5 mg PRN Q6HRS PRN NEB SHORTNESS OF BREATH; Start 01/24/18 at 09:00 Albuterol/ Ipratropium (Duoneb) 3 ml STK-MED ONCE .ROUTE Last administered on at 09:47; Start 01/24/18 at 09:27; Stop 01/24/18 at 09:28; Status DC Regadenoson (Lexiscan) 0.4 mg 1X ONCE IV Last administered on 01/25/18at 09:30; Start 01/25/18 at 09:30; Stop 01/25/18 at 09:31; Status DC Ketorolac Tromethamine (Toradol) 15 mg 1X ONCE IV Last administered on at 09:40; Start 01/25/18 at 09:45; Stop 01/25/18 at 09:46; Status DC Acetaminophen (Tylenol) 325 mg PRN Q6HRS PRN PO PAIN / TEMP Last administered on 01/25/18at 12:22; Start 01/25/18 at 12:15 Active Scripts Active Reported Aspir-Low (Aspirin) 81 Mg Tablet.dr 1 Tab PO DAILY Atorvastatin Calcium 40 Mg Tablet 1 Tab PO HS Vitals/I & O Vital Sign - Last 24 Hours 01/24/18 01/24/18 01/24/18 01/24/18 15:54 19:18 20:00 20:25 Temp 98.0 97.5 Pulse 74 74 74 Resp 18 16 B/P (MAP) 117/64 (81) 113/73 (86) 113/73 Pulse Ox 96 96 O2 Delivery Room Air Room Air Room Air 01/24/18 01/25/18 01/25/18 01/25/18 22:29 05:37 08:15 11:23 Temp 98.2 Pulse 65 88 Resp 18 20 B/P (MAP) 125/54 (77) 132/67 (88) Pulse Ox 97 93 96 O2 Delivery Room Air Room Air Room Air Room Air 01/25/18 01/25/18 01/25/18 11:26 11:47 15:24 Temp 97.6 97.8 Pulse 109 109 84 Resp 22 18 B/P (MAP) 94/66 (75) 94/66 103/69 (80) Pulse Ox 96 95 O2 Delivery Room Air Intake and Output 01/24/18 01/24/18 01/25/18 15:00 23:00 07:00 Intake Total 1568.9 ml 400 ml Balance 1568.9 ml 400 ml MARISSA ROBERTS [employer] January 25, 2018 15:45
--- NOTE | 2018-01-25 16:02 | RAD ---
MR#: [id number] Date of Study: 01/25/2018 Ordering Physician: MARISSA ROBERTS, Referring Physician: BRAD JOHNSON Tech: TAINA Chu APPROVED REPORT Test Type: Pharmacological Stress Nurse/Tech: TAINA Chu Test Indications: Chest Pain Cardiac History: none Medications: see EHR Medical History: see EHR Resting ECG: SR Resting Heart Rate: 94 bpm Resting Blood Pressure: 152/52mmHg Pretest Chest Pain: None Nurse/Tech Notes Consent: The procedure was explained to the patient in lay terms. Informed consent was witnessed. Matthew eout was entered into [employer]. History and Stress Test performed by TAINA Chu Pharm. Details Pharmacologic stress testing was performed using 0.4mg per 5ml of regadenoson given intravenously ove r 7-10 seconds. POST EXERCISE Reason for Termination: Infusion complete Max HR: 132 bpm Max Blood Pressure: 139\49mmHg Blood Pressure response to exercise: Normal blood pressure response during stress. Chest Pain: No. INTERPRETATION Stress EKG Conclusion: Baseline EKG showed sinus rhythm. No ischemic changes at peak stress. No arr hythmias. Imaging Protocol IMAGE PROTOCOL: Rest Tc-99m/stress Tc-99m 1 day Rest: Stress: Viability: Radiopharm.Tc99m OcxszggknRk60c Sestamibi Lcpc48yQo 33.8mCi Duration 15min. 10min. Img Date 01/25/2018 01/25/2018 Inj-Img Siio15tql. 60min. Rest Admin Site:IV - Left AntecubitalAdministrator: TAINA Chu Stress Admin Site: IV - Left AntecubitalAdministrator: TAINA Chu STRESS DATA End Diast. Vol.52.0mlAv. Heart Rate98.0bpm LVEDV index BSA1.0mlCardiac Output0.1L/min End Syst. Vol.7.0mlCO Index BSA4.4L/min LVESV index BSA0.0mlMyocardial Nhst820.0g Eject. Qvbfnamq52.0% Stress Rates Pk. Fill Rate5.31EDV/secLVtime Pk. Fill 152.13msec Pk. Empty Rate6.77ESV/secLVtime Pk. Nlknp370.09msec 1/3 Pk. Fill1.80EDV/sec Stress Scores Regional WT0.00Summed WT0.00 Regional WM0.00Summed WM0.00 Study quality was good. Left Ventricular size was Normal at Rest and Stress. Lung uptake was Normal. Left Ventricular ejection fraction is 87%. The rest and stress images show normal perfusion, normal contraction and thickening. LV Perf. Quant 17 Seg. SSS0.00 17 Seg. SRS0.00 17 Seg. SDS0.00 Stress Defect Extent (% LAD)0.00Rest Defect Extent (% LAD)0.00Rev. Defect Extent (% LAD)0.00 Stress Defect Extent (% LCX) 0.00Rest Defect Extent (% LCX)0.00Rev. Defect Extent (% LCX)0.00 Stress Defect Extent (% RCA)0.00Rest Defect Extent (% RCA)0.00Rev. Defect Extent (% RCA)0.00 Stress Defect Extent (% NORA)0.00Rest Defect Extent (% NORA)0.00Rev. Defect Extent (% NORA)0.00 Conclusion 1. Regadenoson cardioisotope stress test did not show any evidence of ischemia or infarct. 2. Normal left ventricular systolic function with ejection fraction calculated at 87%. 3. Low risk for cardiac events. Signed by : Dominik Pereyra, Electronically Approved : 01/25/2018 16:01:02
[2018-01-25 19:37] VITALS: BP 111/63
[2018-01-25] MEDS ORDERED: cefTRIAXone IV Push 1 GM VIAL. IVP SCH (20:00)
[2018-01-25] MEDS: ENOXAPARIN 40 MG/0.4 ML DISP.SYRIN. SQ SCH (21:18)
[2018-01-25] MEDS: ATORVASTATIN CALCIUM 20 MG TABLET PO SCH (21:18)
[2018-01-25 22:56] VITALS: BP 111/66
--- NOTE | 2018-01-26 01:46 | PN ---
DATE: SUBJECTIVE: The patient is a 72-year-old female came in with a combination of shortness of breath and exacerbation of COPD. The patient has had a stress test, results are pending. Otherwise, the patient's blood pressure down to 94/66, respiratory rate 22, pulse 109, complaining of severe upper back pain. Have Cardiology review for any signs of cardiac problems. PHYSICAL EXAMINATION: GENERAL: The patient is alert and oriented. LUNGS: Diminished throughout, poor movement of air. CARDIOVASCULAR: Regular sinus rhythm, tachycardic. ABDOMEN: Soft, nontender. EXTREMITIES: No clubbing, cyanosis or edema. NEUROLOGIC: Intact. IMPRESSION: Chest pain, rule out angina. Chronic obstructive pulmonary disease. PLAN: Continued to be monitored carefully and evaluated for further evaluation with Cardiology evaluating it as well; her chest pain that is. Also diagnosis include history of breast cancer, history of coronary artery disease and shortness of breath. CORINNA DIANE MD DR: BRADY/olivia JOB#: [id number] / [id number]
[2018-01-26 05:30] VITALS: BP 108/50
[2018-01-26] MEDS: IPRATRPIUM/ALBUTEROL 0.5/2.5MG 3 ML NEBU. NEB SCH ×2 (05:54→10:18)
[2018-01-26] MEDS: ASPIRIN ENTERIC COATED 81 MG TABLET.DR. PO SCH (07:46)
[2018-01-26] MEDS: LACTOBACILLUS RHAMNOSUS GG 1 CAPSULE. PO SCH (07:46)
--- NOTE | 2018-01-26 09:11 | PDOC ---
PROGRESS NOTES Diagnosis Problem Problems Medical Problems: (1) Chest pain Status: Acute Assessment Problems Medical Problems: (1) Chest pain Status: Acute 1. Chest pain - CE negative , EKG without acute ischemic changes, normal LV function by echo. MPI without ischemia. 2. dyspnea on exertion - abnormal 6 min walk. suggest PFTs as outpatient. mgmt per PCP 3. hyperlipidemia -controlled, continue statin 4. UTI - per PCP Stable for discharge from CV standpoint. Problems: Subjective no chest pain this am, no dyspnea, no palpitations, would like to go home Objective Vital Signs Date Time Temp Pulse Resp B/P (MAP) Pulse Ox O2 Delivery O2 Flow Rate FiO2 01/26/18 05:58 95 Room Air 01/26/18 05:30 98.4 74 18 108/50 (69) Intake and Output 01/26/18 07:00 Intake Total 1830 ml Balance 1830 ml Intake Oral 1830 ml # Voids 6 Abdomen: Normal bowel sounds, Soft Heart: Regular rate, Normal S1, Normal S2 Extremities: No cyanosis, Normal pulses General: Alert, Oriented X3, Cooperative, No acute distress HEENT: Atraumatic, EOMI Lungs: Clear to auscultation Neuro: Normal speech Psych/Mental Status: Mental status NL, Mood NL Review of Relevant I have reviewed the following items ra (where applicable) has been applied. Labs Laboratory Tests Test 01/24/18 09:57 Troponin I Quantitative < 0.017 ng/mL (0-0.055) Microbiology 01/23/18 Urine Culture - Preliminary, Resulted 01/23/18 Urine Culture Result 1 (JIM) - Preliminary, Resulted Medications Current Medications Aspirin (Children'S Aspirin) 324 mg 1X ONCE PO ; Start 01/23/18 at 21:00; Stop 01/23/18 at 21:01; Status DC Morphine Sulfate (Morphine 2mg Syringe) 2 mg 1X ONCE IV ; Start 01/23/18 at 21: 00; Stop 01/23/18 at 21:01; Status DC Sodium Chloride 1,000 ml @ 100 mls/hr Q10H IV Last administered on 01/23/18at 20:49; Start 01/23/18 at 21:00; Stop 01/24/18 at 07:00; Status DC Nitroglycerin (Nitro-Bid Oint) 1 inch 1X ONCE TP Last administered on at 21:00; Start 01/23/18 at 21:00; Stop 01/23/18 at 21:01; Status DC Enoxaparin Sodium (Lovenox 80mg Syringe) 80 mg 1X ONCE SQ Last administered on 01/23/18at 23:09; Start 01/23/18 at 23:00; Stop 01/23/18 at 23:01; Status DC Ceftriaxone Sodium 1 gm/ Sodium Chloride 50 ml @ 100 mls/hr 1X ONCE IV ; Start 01/23/18 at 22:30; Stop 01/23/18 at 22:59; Status UNV Ceftriaxone Sodium (Rocephin) 1 gm 1X ONCE IVP Last administered on 01/23/18at 23:09; Start 01/23/18 at 22:45; Stop 01/23/18 at 22:46; Status DC Ondansetron HCl (Zofran) 4 mg PRN Q4HRS PRN IV NAUSEA/VOMITING 1ST CHOICE; Start 01/23/18 at 22:45; Stop 01/24/18 at 22:44; Status DC Aspirin (Children'S Aspirin) 81 mg DAILY PO ; Start 01/24/18 at 09:00; Stop at 09:00; Status DC Enoxaparin Sodium (Lovenox 80mg Syringe) 80 mg BID SQ ; Start 01/24/18 at 09:00 ; Stop 01/24/18 at 09:00; Status DC Nitroglycerin (Nitro-Bid Oint) 0.5 inch TID TP Last administered on 01/24/18at 20:25; Start 01/24/18 at 09:00; Stop 01/26/18 at 07:43; Status DC Ceftriaxone Sodium 1 gm/ Sodium Chloride 50 ml @ 100 mls/hr DAILY IV ; Start at 09:00; Status UNV Lactated Ringer's 1,000 ml @ 1,000 mls/hr 1X ONCE IV Last administered on at 23:00; Start 01/23/18 at 23:00; Stop 01/23/18 at 23:59; Status DC Info (Anti-Coagulation Monitoring By Pharmacy) 1 each PRN DAILY PRN MC SEE COMMENTS; Start 01/23/18 at 23:00; Status Cancel Ceftriaxone Sodium (Rocephin) 1 gm Q24H IVP ; Start 01/24/18 at 21:00; Stop at 21:00; Status DC Lactobacillus Rhamnosus (Culturelle) 1 cap BID PO Last administered on at 07:46; Start 01/24/18 at 09:00 Iohexol (Omnipaque 300 Mg/ml) 75 ml 1X ONCE IV Last administered on 01/23/18at 23:17; Start 01/23/18 at 23:00; Stop 01/23/18 at 23:01; Status DC Info (Do NOT chart on this entry -- for MONITORING) 1 each PRN DAILY PRN MC SEE COMMENTS; Start 01/23/18 at 23:00; Stop 01/25/18 at 22:59; Status DC Aspirin (Aspirin Enteric Coated) 81 mg DAILY PO Last administered on 01/26/18at 07:46; Start 01/24/18 at 09:00 Atorvastatin Calcium (Lipitor) 40 mg QHS PO Last administered on 01/25/18at 21:18 ; Start 01/24/18 at 21:00 Enoxaparin Sodium (Lovenox) 40 mg Q24H SQ Last administered on 01/25/18at 21:18; Start 01/24/18 at 21:00 Albuterol/ Ipratropium (Duoneb) 3 ml RTQID NEB Last administered on 01/26/18at 05 :54; Start 01/24/18 at 12:00 Albuterol Sulfate (Ventolin) 2.5 mg PRN Q6HRS PRN NEB SHORTNESS OF BREATH; Start 01/24/18 at 09:00 Albuterol/ Ipratropium (Duoneb) 3 ml STK-MED ONCE .ROUTE Last administered on at 09:47; Start 01/24/18 at 09:27; Stop 01/24/18 at 09:28; Status DC Regadenoson (Lexiscan) 0.4 mg 1X ONCE IV Last administered on 01/25/18at 09:30; Start 01/25/18 at 09:30; Stop 01/25/18 at 09:31; Status DC Ketorolac Tromethamine (Toradol) 15 mg 1X ONCE IV Last administered on at 09:40; Start 01/25/18 at 09:45; Stop 01/25/18 at 09:46; Status DC Acetaminophen (Tylenol) 325 mg PRN Q6HRS PRN PO PAIN / TEMP Last administered on 01/25/18at 21:33; Start 01/25/18 at 12:15 Ceftriaxone Sodium 1 gm/ Sodium Chloride 50 ml @ 100 mls/hr Q24H IV ; Start 01/25/18 at 19:00; Status UNV Ceftriaxone Sodium (Rocephin) 1 gm Q24H IVP Last administered on 01/25/18at 21:10 ; Start 01/25/18 at 20:00 Active Scripts Active Reported Aspir-Low (Aspirin) 81 Mg Tablet. 1 Tab PO DAILY Atorvastatin Calcium 40 Mg Tablet 1 Tab PO HS Vitals/I & O Vital Sign - Last 24 Hours 01/25/18 01/25/18 01/25/18 01/25/18 11:23 11:26 11:47 15:24 Temp 97.6 97.8 Pulse 109 109 84 Resp 22 18 B/P (MAP) 94/66 (75) 94/66 103/69 (80) Pulse Ox 96 96 95 O2 Delivery Room Air Room Air 01/25/18 01/25/18 01/25/18 01/25/18 16:47 19:37 20:00 21:00 Temp 97.6 Pulse 88 88 Resp 18 B/P (MAP) 111/63 (79) 111/63 Pulse Ox 94 96 O2 Delivery Room Air Room Air Room Air 01/25/18 01/26/18 01/26/18 22:56 05:30 05:58 Temp 97.7 98.4 Pulse 73 74 Resp 18 18 B/P (MAP) 111/66 (81) 108/50 (69) Pulse Ox 95 94 95 O2 Delivery Room Air Room Air Room Air Intake and Output 01/25/18 01/25/18 01/26/18 15:00 23:00 07:00 Intake Total 240 ml 960 ml 630 ml Balance 240 ml 960 ml 630 ml MARISSA ROBERTS [employer] January 26, 2018 09:11
[2018-01-26] MEDS ORDERED: ESOM20CA PO (10:06)
[2018-01-26] MEDS ORDERED: IPRA3AMP NEB (10:06)
--- NOTE | 2018-01-26 10:14 | DS ---
DATE OF DISCHARGE: 01/26/2018 HOSPITAL COURSE: This 72-year-old female came in with increased shortness of breath and exacerbation of COPD. The patient was also noted to have chest pain, sometimes radiating to her back in the upper thoracic area as well as in the front as well. The patient was placed on aggressive pulmonary toilet as well as an antibiotic. The patient made good progress. Her chest pain was evaluated with a stress test that was required because of the chest pain. She did have an MPI as well. Her hyperlipidemia was controlled with statin drugs. She also had a urinary tract infection and placed on antibiotics for such. The patient otherwise made good progress during the rest of her hospitalization and her exacerbation of COPD, shortness of breath pretty much cleared, although on her 6-minute walk, she did have a significant decrease in her oxygen saturation, requiring outpatient oxygen, especially when she mobilizes. Otherwise, there were no complications. See EMRAD. Decreased activity for now. Follow up in 7-10 days. IMPRESSION: Acute exacerbation of chronic obstructive pulmonary disease, acute respiratory distress, chest pain, angina, hypoxia with exertion on a 6-minute walk. PLAN: The patient will be discharged home. Followed up as an outpatient. CORINNA DIANE MD DR: BRADY/olivia JOB#: [id number] / [id number]
== END 2018-01-26 11:41 | disposition home health service (06) | DRG 191 ==
LOC: ER 20:05 → 1 SOUTH 22:30
PROVIDERS: ADMIT Family Medicine; ATTEND Family Medicine
DX: J44.1 Chronic obstructive pulmonary disease with (acute) exacerbation (principal); N39.0 Urinary tract infection, site not specified; E11.9 Type 2 diabetes mellitus without complications; E78.5 Hyperlipidemia, unspecified; I10 Essential (primary) hypertension; R09.02 Hypoxemia; R07.9 Chest pain, unspecified; I25.119 Atherosclerotic heart disease of native coronary artery with unspecified angina pectoris; Z80.9 Family history of malignant neoplasm, unspecified; Z85.3 Personal history of malignant neoplasm of breast; Z86.73 Personal history of transient ischemic attack (TIA), and cerebral infarction without residual deficits; Z87.891 Personal history of nicotine dependence; Z87.440 Personal history of urinary (tract) infections; Z90.49 Acquired absence of other specified parts of digestive tract; Z88.8 Allergy status to other drugs, medicaments and biological substances
CPT/HCPCS: 36415; 71045; 71275; 78452; 80048; 80061; 80076; 80307; 81001; 82553; 83690; 83735; 83880; 84443; 84484; 85025; 85379; 85610; 85730; 87086; 93005; 93017; 93306; 93970; 94618; 94640; 96361; 96372; 96374; 96375; 96376; A9500; J0696; J1650; J1885; J2785; J7120; J7620; Q9967; 97110; 97530; 99285-25; G0479; J7030

== ENCOUNTER 2018-02-04 16:14 | Emergency (ER) | payer OTHER ==
[~2018-02-04 16:14] MED LIST changes: +ASPI81TA50 PO; +ATOR40TA59 PO; +ESOM20CA PO; +IPRA3AMP NEB
--- NOTE | 2018-02-04 17:02 | RAD ---
EXAM: Chest, 2 views. HISTORY: Shortness of breath. COMPARISON: 10/06/2014 FINDINGS: Frontal and lateral views of the chest are obtained. There is stable lingular and right middle lobe pleural parenchymal scarring. There is emphysema. There is no pleural effusion or pneumothorax. The heart is normal in size. IMPRESSION: 1. Emphysema. 2. Stable lingular and right middle lobe pleural-parenchymal scarring. 3. Note is made that a pulmonary nodule within the right lower lobe demonstrated on a prior CT is not well seen radiographically. Electronically signed by: Delores Tobias MD (02/04/2018 4:59 PM) [facility]
[2018-02-04] MEDS ORDERED: methylPREDNISolone SOD SUCC PF 125 MG/2 ML VIAL. IV ONE (17:10)
[2018-02-04] MEDS ORDERED: IPRATRPIUM/ALBUTEROL 0.5/2.5MG 3 ML NEBU. NEB ONE ×2 (17:10→17:15)
--- NOTE | 2018-02-04 17:11 | PHYS DOC ---
Past History Past Medical History: Angina, CAD, CVA, Diabetes, Hypertension, UTI, Other Past Surgical History: Appendectomy Alcohol Use: None Drug Use: None Adult General Chief Complaint Chief Complaint: DYSPNEA/RESPIRATOY DISTRESS HPI HPI 72-year-old female presents with progressive shortness of breath for last 3 days. Patient has a history of COPD he is on 2 L of oxygen at baseline. For the last 3 days, the patient has had subjective feeling of shortness of breath. It seems to be getting worse so she came to the ED. the patient has had increased cough with whitish sputum. Denies fever, chills, chest pain. She is supposed to be taking DuoNeb treatments 2-3 times a day, but only takes them once a day or less. She has no other complaints at this time. Review of Systems Review of Systems Constitutional: Denies fever or chills [] Eyes: Denies change in visual acuity, redness, or eye pain [] HENT: Denies nasal congestion or sore throat [] Respiratory: increased cough and shortness of breath [] Cardiovascular: No additional information not addressed in HPI [] GI: Denies abdominal pain, nausea, vomiting, bloody stools or diarrhea [] : Denies dysuria or hematuria [] Musculoskeletal: Denies back pain or joint pain [] Integument: Denies rash or skin lesions [] Neurologic: Denies headache, focal weakness or sensory changes [] Endocrine: Denies polyuria or polydipsia [] All other systems were reviewed and found to be within normal limits, except as documented in this note. Current Medications Current Medications Current Medications Medications (Trade) Dose Ordered Sig/Edmond Start Time Stop Time Status Last Admin Dose Admin Albuterol/ Ipratropium (Duoneb) 3 ml 1X ONCE 02/04/18 17:10 02/04/18 17:11 02/04/18 16:48 3 ML Methylprednisolone Sodium Succinate (SOLU-Medrol 125MG VIAL) 125 mg 1X ONCE 02/04/18 17:10 02/04/18 17:11 Allergies Allergies Allergies Coded Allergies Type Severity Reaction Last Updated Verified ibuprofen Allergy Intermediate 01/23/18 Yes Physical Exam Physical Exam Constitutional: Well developed, well nourished, no acute distress, non-toxic appearance. [] HENT: Normocephalic, atraumatic, bilateral external ears normal, oropharynx moist, no oral exudates, nose normal. [] Eyes: PERRLA, EOMI, conjunctiva normal, no discharge. [] Neck: Normal range of motion, no tenderness, supple, no stridor. [] Cardiovascular:Heart rate regular rhythm, no murmur [] Lungs & Thorax: Bilateral decreased breath sounds and expiratory wheezes. On 2L nasal canula [] Abdomen: Bowel sounds normal, soft, no tenderness, no masses, no pulsatile masses. [] Skin: Warm, dry, no erythema, no rash. [] Back: No tenderness, no CVA tenderness. [] Extremities: No tenderness, no cyanosis, no clubbing, ROM intact, no edema. [] Neurologic: Alert and oriented X 3, normal motor function, normal sensory function, no focal deficits noted. [] Psychologic: Affect normal, judgement normal, mood normal. [] Current Patient Data Vital Signs Vital Signs Date Time Temp Pulse Resp B/P (MAP) Pulse Ox O2 Delivery O2 Flow Rate FiO2 02/04/18 16:55 97 Nasal Cannula 2.0 02/04/18 16:15 98.1 106 22 EKG EKG [] Radiology/Procedures Radiology/Procedures EXAM: Chest, 2 views. HISTORY: Shortness of breath. COMPARISON: 10/06/2014 FINDINGS: Frontal and lateral views of the chest are obtained. There is stable lingular and right middle lobe pleural parenchymal scarring. There is emphysema. There is no pleural effusion or pneumothorax. The heart is normal in size. IMPRESSION: 1. Emphysema. 2. Stable lingular and right middle lobe pleural-parenchymal scarring. 3. Note is made that a pulmonary nodule within the right lower lobe demonstrated on a prior CT is not well seen radiographically. Electronically signed by: Delores Tobias MD (02/04/2018 4:59 PM) [facility][] Course & Med Decision Making Course & Med Decision Making Pertinent Labs and Imaging studies reviewed. (See chart for details) The patient's chest x-ray is unremarkable for acute findings. She has wheezing bilaterally and significantly decreased air movement. I will treat patient with 2 DuoNeb treatments as well as Solu-Medrol 125 mg. [] Dragon Disclaimer Dragon Disclaimer This electronic medical record was generated, in whole or in part, using a voice recognition dictation system. Departure Departure: Referrals: CORINNA DIANE MD (PCP) Scripts Albuterol Sulfate (ALBUTEROL SULFATE CONC NEB SOLN) 2.5 Mg/0.5 Ml Vial.neb 1 VIAL NEB Q4HRS PRN for SHORTNESS OF BREATH, #60 VIAL 1 Refill Prov: YOVANNY TRAMMELL DO 02/04/18 Prednisone (PREDNISONE) 20 Mg Tablet 60 MG PO DAILY for 3 Days, #9 TAB Prov: YOVANNY TRAMMELL DO 02/04/18 YOVANNY TRAMMELL DO February 04, 2018 17:11
[2018-02-04 17:26] LABS: BASO # 0.1 x10^3/uL (0.0-0.2); BASO % 1 % (0-3); EOS # 0.1 x10^3/uL (0.0-0.7); EOS % 1 % (0-3); HEMOGLOBIN 13.8 g/dL (12.0-15.5); LYMPH # 1.4 x10^3/uL (1.0-4.8); LYMPH % 10 % (24-48); MEAN CORPUSCULAR HEMOGLOBIN 31 pg (25-35); MEAN CORPUSCULAR HGB CONC 34 g/dL (31-37); MEAN CORPUSCULAR VOLUME 92 fL (79-100); MONO % 7 % (0-9); NEUT # 11.7 x10^3uL (1.8-7.7); NEUT % 82 % (31-73); PLATELET COUNT 268 x10^3/uL (140-400); RED BLOOD COUNT 4.46 x10^6/uL (3.50-5.40); RED CELL DISTRIBUTION WIDTH 14.3 % (11.5-14.5); WHITE BLOOD COUNT 14.4 x10^3/uL (4.0-11.0)
[2018-02-04] MEDS ORDERED: PRED20TA PO (17:30)
[2018-02-04 17:33] LABS: CALCIUM 8.5 mg/dL (8.5-10.1); CREATININE 0.9 mg/dL (0.6-1.0); GFR 61.4; POTASSIUM 3.6 mmol/L (3.5-5.1)
[2018-02-04] MEDS ORDERED: ALBU2.5V14 NEB (17:36)
[2018-02-04 17:51] VITALS: BP 115/69
== END 2018-02-04 17:50 | disposition home or self-care (01) ==
LOC: ER 16:14
DX: J43.9 Emphysema, unspecified (principal); J44.9 Chronic obstructive pulmonary disease, unspecified; I25.10 Atherosclerotic heart disease of native coronary artery without angina pectoris; E11.9 Type 2 diabetes mellitus without complications; I10 Essential (primary) hypertension; Z87.440 Personal history of urinary (tract) infections; Z86.73 Personal history of transient ischemic attack (TIA), and cerebral infarction without residual deficits; Z88.6 Allergy status to analgesic agent
CPT/HCPCS: 36415; 71046; 80048; 85025; 94640; 96374; 99285; J2930; J7620

== ENCOUNTER 2018-02-11 22:19 | Inpatient (IN) | payer OTHER ==
[~2018-02-11] VITALS: Ht 165.1 cm; Wt 69.6 kg
[~2018-02-11 22:19] MED LIST changes: +ALBU2.5V14 NEB; +PRED20TA PO
[2018-02-11] MEDS ORDERED: IV RINGERS SOLUTION,LACTATED 1,000 ML IV SCH (22:31)
--- NOTE | 2018-02-11 22:38 | ED.ADGEN ---
Past History Past Medical History: Angina, Anxiety, Arthritis, CAD, CHF, COPD, CVA, Diabetes , Hypertension, UTI, Other Past Surgical History: Appendectomy Alcohol Use: None Drug Use: None Adult General Chief Complaint Chief Complaint ".. I really short of breath..." HPI HPI Patient is a 72 year old female who presents with above complaints of increased dyspnea, fever, chills, and productive sputum. Pt. has history of COPD/ emphysema and oxygen dependent at 3 L.. Patient has been exposed to grandchildren who have been sick. No recent travel. Recently had an episode of aspiration pneumonitis. Patient denies any changes in meds. Patient no longer smokes. Patient has episodes of CHF, history of coronary artery disease, diabetes, deconditioning, CVA, diabetes, aspiration, urinary incontinence and deconditioning. Patient normally follows with Dr. Salinas. Review of Systems Review of Systems Constitutional: Hx. fever or chills [] Eyes: Denies change in visual acuity, redness, or eye pain [] HENT: Hx. nasal congestion Respiratory: Hx. cough and shortness of breath [] Cardiovascular: No additional information not addressed in HPI [] GI: Denies abdominal pain, nausea, vomiting, bloody stools or diarrhea [] : Denies dysuria or hematuria [] Musculoskeletal: Denies back pain or joint pain [] Integument: Denies rash or skin lesions [] Neurologic: Denies headache, focal weakness or sensory changes [] Endocrine: Denies polyuria or polydipsia [] All other systems were reviewed and found to be within normal limits, except as documented in this note. Family History Family History Noncontributory Current Medications Current Medications Current Medications Medications (Trade) Dose Ordered Sig/Edmond Start Time Stop Time Status Last Admin Dose Admin Albuterol/ Ipratropium (Duoneb) 3 ml 1X ONCE 02/11/18 23:00 02/11/18 23:01 DC 02/11/18 22:56 3 ML Aspirin (Children'S Aspirin) 324 mg 1X ONCE 02/11/18 23:00 02/11/18 23:01 DC 02/11/18 22:56 324 MG Ceftriaxone Sodium 1 gm/ Sodium Chloride 50 ml @ 100 mls/hr 1X ONCE 02/11/18 22:45 02/11/18 23:14 UNV Ceftriaxone Sodium (Rocephin) 1 gm 1X ONCE 02/11/18 23:00 02/11/18 23:01 DC 02/11/18 22:56 1 GM Lactated Ringer's 1,000 ml @ 100 mls/hr Q10H 02/11/18 22:31 02/12/18 08:30 02/11/18 22:55 100 MLS/HR Methylprednisolone Sodium Succinate (SOLU-Medrol 125MG VIAL) 125 mg 1X ONCE 02/11/18 23:00 02/11/18 23:01 DC 02/11/18 22:55 125 MG See nursing for home meds Allergies Allergies Allergies Coded Allergies Type Severity Reaction Last Updated Verified ibuprofen Allergy Intermediate 01/23/18 Yes Physical Exam Physical Exam Constitutional: In moderately severe distress, chronically ill in appearance. [] HENT: Normocephalic, atraumatic, bilateral external ears normal, oropharynx moist, no oral exudates, nose rhinorrhea. Eyes: PERRLA, EOMI, conjunctiva normal, no discharge. [] Glasses Neck: Normal range of motion, no tenderness, supple, no stridor. [] JVD Cardiovascular: Tachycardia Heart rate regular rhythm, no murmur [] Lungs & Thorax: Bilateral breath sounds equal at apex with scattered wheezing and rhonchi throughout auscultation, []retractions Abdomen: Bowel sounds normal, soft, no tenderness, no masses, no pulsatile masses. [] Old surgery scar. Skin: Warm, dry, no erythema, no rash. [] Poor turgor Back: No tenderness, no CVA tenderness. [] Extremities: No tenderness, no cyanosis, no clubbing, ROM intact, no edema. Arthritic changes. No cording appreciated Neurologic: Alert and oriented X 3, moves all extremities on request. No gross sensory function deficits appreciated, Psychologic: Affect anxious, judgement normal, mood normal. [] Current Patient Data Vital Signs Vital Signs Date Time Temp Pulse Resp B/P (MAP) Pulse Ox O2 Delivery O2 Flow Rate FiO2 02/11/18 22:19 98.0 135 22 91 Room Air Lab Results Laboratory Tests Test 02/11/18 22:50 White Blood Count 24.8 x10^3/uL (4.0-11.0) H Red Blood Count 4.42 x10^6/uL (3.50-5.40) Hemoglobin 13.8 g/dL (12.0-15.5) Hematocrit 40.5 % (36.0-47.0) Mean Corpuscular Volume 92 fL (79-100) Mean Corpuscular Hemoglobin 31 pg (25-35) Mean Corpuscular Hemoglobin Concent 34 g/dL (31-37) Red Cell Distribution Width 14.1 % (11.5-14.5) Platelet Count 282 x10^3/uL (140-400) Neutrophils (%) (Auto) 89 % (31-73) H Lymphocytes (%) (Auto) 2 % (24-48) L Monocytes (%) (Auto) 8 % (0-9) Eosinophils (%) (Auto) 0 % (0-3) Basophils (%) (Auto) 1 % (0-3) Neutrophils # (Auto) 22.1 x10^3uL (1.8-7.7) H Lymphocytes # (Auto) 0.6 x10^3/uL (1.0-4.8) L Monocytes # (Auto) 2.0 x10^3/uL (0.0-1.1) H Eosinophils # (Auto) 0.0 x10^3/uL (0.0-0.7) Basophils # (Auto) 0.1 x10^3/uL (0.0-0.2) Segmented Neutrophils % 74 % (35-66) H Band Neutrophils % 18 % (0-9) H Lymphocytes % 3 % (24-48) L Monocytes % 5 % (0-10) Platelet Estimate Adequate (ADEQUATE) Prothrombin Time 10.7 SEC (9.4-11.4) Prothrombin Time INR 1.0 (0.9-1.1) PTT 27 SEC (23-33) D-Dimer (Ruthie) 11.70 mg/L (0.00-0.50) H Sodium Level 142 mmol/L (136-145) Potassium Level 3.2 mmol/L (3.5-5.1) L Chloride Level 103 mmol/L (98-107) Carbon Dioxide Level 30 mmol/L (21-32) Anion Gap 9 (6-14) Blood Urea Nitrogen 15 mg/dL (7-20) Creatinine 1.0 mg/dL (0.6-1.0) Estimated GFR (Cockcroft-Gault) 54.3 Glucose Level 144 mg/dL (70-99) H Lactic Acid Level 2.5 mmol/L (0.4-2.0) H Calcium Level 8.8 mg/dL (8.5-10.1) Magnesium Level 1.6 mg/dL (1.8-2.4) L Total Bilirubin 0.5 mg/dL (0.2-1.0) Direct Bilirubin 0.2 mg/dL (0.0-0.2) Aspartate Amino Transferase (AST) 21 U/L (15-37) Alanine Aminotransferase (ALT) 21 U/L (14-59) Alkaline Phosphatase 111 U/L (46-116) Creatine Kinase 71 U/L (26-192) Creatine Kinase MB (Mass) 2.3 ng/mL (0.0-3.6) Creatine Kinase MB Relative Index 3.2 % (0-4) Troponin I Quantitative 0.196 ng/mL (0-0.055) H VZ-Fbx-T-Type Natriuretic Peptide 1416 pg/mL (0-124) H Total Protein 7.7 g/dL (6.4-8.2) Albumin 3.0 g/dL (3.4-5.0) L Lipase 58 U/L (73-393) L EKG EKG My interpretation of EKG shows a sinus tachycardia at 126 bpm. No findings acute STEMI. With contralateral changes[] Radiology/Procedures Radiology/Procedures I interpretation of chest x-ray shows diffuse by basilar interstitial infiltrates. COPD pattern. Does have a pulmonary nodule. Degenerative joint changes.[] Ultrasound pending at time of admission. Course & Med Decision Making Course & Med Decision Making Pertinent Labs and Imaging studies reviewed. (See chart for details) Discussed presentation, testing and treatment plan with Dr. Salinas- patient to be admitted for further evaluation and treatment. We'll defer CT at this time pending ultrasound but will treat with Lovenox as if she does have a PE/ DVT. Suspect primary problem is sepsis from pneumonia. Critical Care 90 min. Final Impression Final Impression 1. Respiratory failure. 2. Sepsis/Sirs 3. Bilateral pneumonia 4. Leukocytosis with bands and segs - 24.8 5. CHF- QSD=2439 6, D-dimer >19 7. Hypokalemia 8. Malnutrition Alb. .3.0 9. Lactic Acid = 2.5 10. DM = gluc. 144 11. Elevated Trop.= 0.196 12. Hx. COPD Dragon Disclaimer Dragon Disclaimer This electronic medical record was generated, in whole or in part, using a voice recognition dictation system. DARELL GOVEA MD February 11, 2018 22:38
[2018-02-11 22:56] LABS: BASO # 0.1 x10^3/uL (0.0-0.2); BASO % 1 % (0-3); EOS % 0 % (0-3); HEMATOCRIT 40.5 % (36.0-47.0); HEMOGLOBIN 13.8 g/dL (12.0-15.5); LYMPH # 0.6 x10^3/uL (1.0-4.8); LYMPH % 2 % (24-48); MEAN CORPUSCULAR HEMOGLOBIN 31 pg (25-35); MEAN CORPUSCULAR HGB CONC 34 g/dL (31-37); MEAN CORPUSCULAR VOLUME 92 fL (79-100); MONO % 8 % (0-9); NEUT # 22.1 x10^3uL (1.8-7.7); NEUT % 89 % (31-73); PLATELET COUNT 282 x10^3/uL (140-400); RED BLOOD COUNT 4.42 x10^6/uL (3.50-5.40); RED CELL DISTRIBUTION WIDTH 14.1 % (11.5-14.5); WHITE BLOOD COUNT 24.8 x10^3/uL (4.0-11.0)
[2018-02-11] MEDS ORDERED: methylPREDNISolone SOD SUCC PF 125 MG/2 ML VIAL. IV ONE (23:00)
[2018-02-11] MEDS ORDERED: cefTRIAXone IV Push 1 GM VIAL. IVP ONE (23:00)
[2018-02-11] MEDS ORDERED: IPRATRPIUM/ALBUTEROL 0.5/2.5MG 3 ML NEBU. NEB ONE (23:00)
[2018-02-11] MEDS ORDERED: ASPIRIN 81 MG TAB.CHEW PO ONE (23:00)
--- NOTE | 2018-02-11 23:06 | RAD ---
EXAM: Chest, single view. HISTORY: Dyspnea. COMPARISON: 02/04/2018 FINDINGS: Frontal views of the chest are obtained. There is diffuse lower lobe predominant interstitial infiltrate. There is no consolidation, pleural effusion or pneumothorax. The heart is normal in size. There is nodularity overlying the right lower lobe. IMPRESSION: 1. Diffuse lower lobe predominant interstitial infiltrate. 2. Right lower lobe pulmonary nodule, better characterized on the CT dated 01/23/2018. Electronically signed by: Delores Tobias MD (02/11/2018 11:02 PM) [facility]
[2018-02-11 23:28] LABS: CALCIUM 8.8 mg/dL (8.5-10.1); DIRECT BILIRUBIN 0.2 mg/dL (0.0-0.2); GFR 54.3; MAGNESIUM 1.6 mg/dL (1.8-2.4); POTASSIUM 3.2 mmol/L (3.5-5.1); TOTAL BILIRUBIN 0.5 mg/dL (0.2-1.0); TOTAL PROTEIN 7.7 g/dL (6.4-8.2)
[2018-02-11 23:48] LABS: % BANDS 18 % (0-9); % LYMPHS 3 % (24-48); % MONOS 5 % (0-10); % SEGS 74 % (35-66)
[2018-02-11 23:49] LABS: PLT ESTIMATE ADEQUATE (ADEQUATE)
[2018-02-12] VITALS (20 sets, daily range): BP systolic 133–172; BP diastolic 60–95
[2018-02-12] MEDS ORDERED: ENOXAPARIN ** NOTE DOSE ** SYRINGE SQ ONE (00:30)
[2018-02-12] MEDS ORDERED: FUROSEMIDE 40 MG/4 ML VIAL IVP ONE (00:30)
[2018-02-12] MEDS ORDERED: IV RINGERS SOLUTION,LACTATED 1,000 ML IV ONE (00:30)
[2018-02-12] MEDS ORDERED: AZITHROMYCIN 250 MG TABLET. PO ONE (00:30)
[2018-02-12] MEDS ORDERED: POTASSIUM CHLORIDE 20 MEQ/15 ML ORAL LIQUID. PO ONE (01:00)
[2018-02-12] MEDS ORDERED: ALBUTEROL SULFATE 2.5 MG/3 ML NEBU. NEB PRN (04:30)
[2018-02-12] MEDS: IV RINGERS SOLUTION,LACTATED 1,000 ML IV SCH ×4 (04:56→21:51)
--- NOTE | 2018-02-12 06:04 | EKG ---
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
[2018-02-12] MEDS ORDERED: IOHEXOL 300 MG/ML 75 ML VIAL. IV ONE (07:45)
[2018-02-12] MEDS ORDERED: IPRATRPIUM/ALBUTEROL 0.5/2.5MG 3 ML NEBU. NEB SCH (08:00)
[2018-02-12] MEDS: PANTOPRAZOLE 40 MG TABLET. PO SCH (08:04)
[2018-02-12] MEDS: ASPIRIN 81 MG TAB.CHEW PO SCH (08:04)
--- NOTE | 2018-02-12 08:40 | EKG ---
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
[2018-02-12] MEDS: IPRATRPIUM/ALBUTEROL 0.5/2.5MG 3 ML NEBU. NEB SCH ×4 (08:46→20:51)
[2018-02-12 09:00] LABS: BASO % 0 % (0-3); EOS % 0 % (0-3); HEMATOCRIT 40.2 % (36.0-47.0); HEMOGLOBIN 13.4 g/dL (12.0-15.5); LYMPH # 0.6 x10^3/uL (1.0-4.8); LYMPH % 2 % (24-48); MEAN CORPUSCULAR HEMOGLOBIN 31 pg (25-35); MEAN CORPUSCULAR HGB CONC 33 g/dL (31-37); MEAN CORPUSCULAR VOLUME 92 fL (79-100); MONO # 0.8 x10^3/uL (0.0-1.1); MONO % 3 % (0-9); NEUT # 25.2 x10^3uL (1.8-7.7); NEUT % 94 % (31-73); PLATELET COUNT 264 x10^3/uL (140-400); RED BLOOD COUNT 4.36 x10^6/uL (3.50-5.40); RED CELL DISTRIBUTION WIDTH 14.6 % (11.5-14.5); WHITE BLOOD COUNT 26.8 x10^3/uL (4.0-11.0)
[2018-02-12] MEDS ORDERED: ASPIRIN 81 MG TAB.CHEW PO SCH (09:00)
[2018-02-12] MEDS ORDERED: AZITHROMYCIN 250 MG TABLET. PO SCH (09:00)
[2018-02-12] MEDS ORDERED: methylPREDNISolone SOD SUCC PF 125 MG/2 ML VIAL. IV SCH (09:00)
[2018-02-12] MEDS: LACTOBACILLUS RHAMNOSUS GG 1 CAPSULE. PO SCH ×2 (09:13→21:42)
[2018-02-12] MEDS: MAGNESIUM CHLORIDE ER 64 MG TABLET.ER PO SCH (09:13)
[2018-02-12] MEDS: methylPREDNISolone SOD SUCC PF 125 MG/2 ML VIAL. IV SCH ×3 (09:14→21:42)
[2018-02-12] MEDS: cefTRIAXone IV Push 2 GM VIAL. IVP SCH (09:15)
[2018-02-12] MEDS: ENOXAPARIN ** NOTE DOSE ** SYRINGE SQ SCH ×2 (09:17→21:43)
--- NOTE | 2018-02-12 09:58 | RAD ---
CTA scan of the Chest with Contrast (Pulmonary Embolism protocol) 02/12/2018 Clinical History: Shortness of breath. COPD. Technique: After the intravenous administration of 75 cc of Omnipaque 300, contiguous, 0.625 mm axial sections were obtained through the chest. 3 mm axial and 3D MIP coronal and sagittal reconstructed images were obtained. One or more of the following individualized dose reduction techniques were utilized for this study: 1. Automated exposure control. 2. Adjustment of the mA and/or kV according to patient size. 3. Use of iterative reconstruction technique. Findings: Comparison study is dated 01/23/2018. No filling defect is seen within the major branches of either pulmonary artery. There is no CT evidence of pulmonary embolism. The heart is borderline enlarged. Atherosclerotic calcification of the thoracic aorta and its branches is seen. The thoracic aorta is tortuous but tapers normally. Mild emphysematous changes are seen involving both lungs. Patchy areas of atelectasis and/or infiltrate are seen involving the lingula of the left upper lobe along with both lower lobes, right greater than left. An area of probable scarring is seen within the right middle lobe. A 9 mm somewhat rounded opacity is seen involving the right lower lobe. Its CT appearance is nonspecific. It has increased since the previous examination where it measured 6 mm in greatest diameter. This may represent a focal area of subsegmental atelectasis and/or infiltrate. A pulmonary mass (pulmonary neoplasm) is considered less likely but is not excluded. Impression: There is no CT evidence of pulmonary embolism. Electronically signed by: Angel Stevens MD (02/12/2018 9:54 AM) [facility]
[2018-02-12 10:15] LABS: CALCIUM 8.9 mg/dL (8.5-10.1); GFR 54.3; POTASSIUM 3.7 mmol/L (3.5-5.1)
[2018-02-12 10:28] LABS: BILIRUBIN,URINE NEG (NEG); CLARITY,URINE CLEAR; COLOR,URINE STRAW; GLUCOSE,URINE NEG (NEG)
--- NOTE | 2018-02-12 10:29 | RAD ---
Bilateral lower extremity venous duplex study 02/12/2018 Clinical History: Leg edema with elevated. D-dimer. Technique: Using a combination of real time ultrasound imaging and color-flow and pulse Doppler imaging techniques along with graded compression and augmentation, duplex evaluation of the deep venous system of the both lower extremities was performed. Multiple images were obtained. Findings: There is no sonographic evidence of deep venous thrombosis involving the visualized deep venous structures of either lower extremity. Impression: Negative study. Electronically signed by: Angel Stevens MD (02/12/2018 10:26 AM) [facility]
[2018-02-12 10:31] LABS: NITRITE,URINE NEG (NEG); UROBILINOGEN,URINE 0.2 mg/dL (0.2 mg/dL)
[2018-02-12 10:32] LABS: BACTERIA,URINE 0 /HPF (0-FEW); RBC,URINE OCC /HPF (0-2); SQUAMOUS EPITHELIAL CELL,UR FEW /LPF; WBC,URINE OCC /HPF (0-4)
--- NOTE | 2018-02-12 11:32 | PDOC2 ---
CONSULT Date of Admission DATE: 02/12/18 TIME: 11:31 Reason for Consult: Elevated troponin level Referring Physician: Dr. Salinas Chief Complaint Shortness of breath Source: Chart review, Patient Problem List Problems Medical Problems: (1) Sepsis Status: Acute History of Present Illness 72-year-old female presented with shortness of breath, fever, chills, cough. She denied any chest pain, orthopnea/PND, palpitations or syncope. Her troponin level was slightly elevated and cardiology has been consulted Past Medical History Diabetes mellitus type 2 Chronic diastolic heart failure Aspiration pneumonia COPD Hypertension UTI Stroke Past Surgical History Appendectomy Family History Hypertension Social History Patient quit smoking one year ago and denied any alcohol or drug use Current Medications Current Medications Aspirin (Children'S Aspirin) 324 mg 1X ONCE PO Last administered on 02/11/18at 22:56; Start 02/11/18 at 23:00; Stop 02/11/18 at 23:01; Status DC Lactated Ringer's 1,000 ml @ 100 mls/hr Q10H IV Last administered on at 22:55; Start 02/11/18 at 22:31; Stop 02/12/18 at 08:30; Status DC Albuterol/ Ipratropium (Duoneb) 3 ml 1X ONCE NEB Last administered on at 22:56; Start 02/11/18 at 23:00; Stop 02/11/18 at 23:01; Status DC Methylprednisolone Sodium Succinate (SOLU-Medrol 125MG VIAL) 125 mg 1X ONCE IV Last administered on 02/11/18at 22:55; Start 02/11/18 at 23:00; Stop 02/11/18 at 23:01; Status DC Ceftriaxone Sodium 1 gm/ Sodium Chloride 50 ml @ 100 mls/hr 1X ONCE IV ; Start 02/11/18 at 22:45; Stop 02/11/18 at 23:14; Status UNV Ceftriaxone Sodium (Rocephin) 1 gm 1X ONCE IVP Last administered on 02/11/18at 22:56; Start 02/11/18 at 23:00; Stop 02/11/18 at 23:01; Status DC Azithromycin (Zithromax) 500 mg 1X ONCE PO Last administered on 02/12/18at 01: 11; Start 02/12/18 at 00:30; Stop 02/12/18 at 00:31; Status DC Enoxaparin Sodium (Lovenox 80mg Syringe) 70 mg 1X ONCE SQ Last administered on 02/12/18at 01:12; Start 02/12/18 at 00:30; Stop 02/12/18 at 00:31; Status DC Albuterol/ Ipratropium (Duoneb) 3 ml RTQID NEB Last administered on 02/12/18at 05:23; Start 02/12/18 at 08:00; Stop 02/12/18 at 08:00; Status DC Ceftriaxone Sodium 1 gm/ Sodium Chloride 50 ml @ 100 mls/hr 1X ONCE IV ; Start 02/12/18 at 00:15; Stop 02/12/18 at 00:44; Status UNV Azithromycin (Zithromax) 250 mg DAILY PO ; Start 02/12/18 at 09:00; Stop at 09:00; Status DC Lactated Ringer's 1,000 ml @ 1,000 mls/hr 1X ONCE IV Last administered on at 04:00; Start 02/12/18 at 00:30; Stop 02/12/18 at 01:29; Status DC Lactated Ringer's 1,000 ml @ 160 mls/hr Q6H15M IV Last administered on at 04:56; Start 02/12/18 at 00:30 Enoxaparin Sodium (Lovenox 80mg Syringe) 70 mg BID SQ Last administered on 02/12at 09:17; Start 02/12/18 at 09:00 Methylprednisolone Sodium Succinate (SOLU-Medrol 125MG VIAL) 125 mg DAILY IV ; Start 02/12/18 at 09:00; Stop 02/12/18 at 09:00; Status DC Aspirin (Children'S Aspirin) 81 mg DAILY PO ; Start 02/12/18 at 09:00; Stop at 09:00; Status DC Furosemide (Lasix) 40 mg 1X ONCE IVP Last administered on 02/12/18at 01:11; Start 02/12/18 at 00:30; Stop 02/12/18 at 00:31; Status DC Ceftriaxone Sodium (Rocephin) 1 gm Q24H IVP ; Start 02/12/18 at 21:00; Stop at 21:00; Status DC Potassium Chloride (KCl Oral Soln) 40 meq 1X ONCE PO Last administered on 02/12at 01:11; Start 02/12/18 at 01:00; Stop 02/12/18 at 01:01; Status DC Albuterol/ Ipratropium (Duoneb) 3 ml RTQID NEB Last administered on 02/12/18at 08:46; Start 02/12/18 at 08:00 Albuterol Sulfate (Ventolin) 2.5 mg PRN Q4HRS PRN NEB SHORTNESS OF BREATH; Start 02/12/18 at 04:30 Aspirin (Children'S Aspirin) 81 mg DAILYWBKFT PO Last administered on at 08:04; Start 02/12/18 at 08:00 Atorvastatin Calcium (Lipitor) 40 mg HS PO ; Start 02/12/18 at 21:00 Pantoprazole Sodium (Protonix) 40 mg DAILYAC PO Last administered on 02/12/18at 08:04; Start 02/12/18 at 07:30 Iohexol (Omnipaque 300 Mg/ml) 75 ml 1X ONCE IV Last administered on 02/12/18at 08:20; Start 02/12/18 at 07:45; Stop 02/12/18 at 07:47; Status DC Lactobacillus Rhamnosus (Culturelle) 1 cap BID PO Last administered on at 09:13; Start 02/12/18 at 09:00 Ceftriaxone Sodium (Rocephin) 2 gm Q24H IVP Last administered on 02/12/18at 09: 15; Start 02/12/18 at 09:00 Methylprednisolone Sodium Succinate (SOLU-Medrol 125MG VIAL) 40 mg TID IV Last administered on 02/12/18at 09:14; Start 02/12/18 at 09:00 Levofloxacin/ Dextrose 150 ml @ 150 mls/hr Q24H IV Last administered on at 09:14; Start 02/12/18 at 09:00 Magnesium Chloride (Mag Delay) 64 mg DAILY PO Last administered on 02/12/18at 09 :13; Start 02/12/18 at 09:00 Active Scripts Active Albuterol Sulfate Conc Neb Soln (Albuterol Sulfate) 2.5 Mg/0.5 Ml Vial.neb 1 Vial NEB Q4HRS PRN Nexium Capsule (Esomeprazole Magnesium) 20 Mg Capsule.dr 1 Cap PO DAILY Duoneb 0.5-3(2.5) Mg/3 Ml (Albuterol/Ipratropium) 3 Ml Ampul.neb 3 Ml NEB RTQID Reported Aspir-Low (Aspirin) 81 Mg Tablet.dr 1 Tab PO DAILY Atorvastatin Calcium 40 Mg Tablet 1 Tab PO HS Allergies: Coded Allergies: ibuprofen (Verified Allergy, Intermediate, 01/23/18) PSYCHOLOGICAL ROS: No: Hallucinations Eyes: No: Loss of vision HEENT: No: Epistaxis Respiratory: YES: Cough, Shortness of breath Cardiovascular: No: Chest Pain, Palpitations Gastrointestinal: No: Vomiting, Diarrhea Genitourinary: No: Incontinence Neurological: No: Memory Loss, Seizures Skin: No: Rash General: Alert, No acute distress HEENT: Atraumatic, PERRLA Lungs: Other (scattered crepitations bilaterally) Heart: Regular rate Abdomen: Soft, No tenderness Extremities: No edema Psych/Mental Status: Mood NL VITALS Vital Signs Date Time Temp Pulse Resp B/P (MAP) Pulse Ox O2 Delivery O2 Flow Rate FiO2 02/12/18 11:15 96 30 137/65 (89) 96 Nasal Cannula 3.5 02/12/18 10:10 98.8 Labs Laboratory Tests Test 02/11/18 22:50 02/12/18 03:10 02/12/18 06:11 02/12/18 07:45 White Blood Count 24.8 x10^3/uL (4.0-11.0) 26.8 x10^3/uL (4.0-11.0) Red Blood Count 4.42 x10^6/uL (3.50-5.40) 4.36 x10^6/uL (3.50-5.40) Hemoglobin 13.8 g/dL (12.0-15.5) 13.4 g/dL (12.0-15.5) Hematocrit 40.5 % (36.0-47.0) 40.2 % (36.0-47.0) Mean Corpuscular Volume 92 fL (79-100) 92 fL (79-100) Mean Corpuscular Hemoglobin 31 pg (25-35) 31 pg (25-35) Mean Corpuscular Hemoglobin Concent 34 g/dL (31-37) 33 g/dL (31-37) Red Cell Distribution Width 14.1 % (11.5-14.5) 14.6 % (11.5-14.5) Platelet Count 282 x10^3/uL (140-400) 264 x10^3/uL (140-400) Neutrophils (%) (Auto) 89 % (31-73) 94 % (31-73) Lymphocytes (%) (Auto) 2 % (24-48) 2 % (24-48) Monocytes (%) (Auto) 8 % (0-9) 3 % (0-9) Eosinophils (%) (Auto) 0 % (0-3) 0 % (0-3) Basophils (%) (Auto) 1 % (0-3) 0 % (0-3) Neutrophils # (Auto) 22.1 x10^3uL (1.8-7.7) 25.2 x10^3uL (1.8-7.7) Lymphocytes # (Auto) 0.6 x10^3/uL (1.0-4.8) 0.6 x10^3/uL (1.0-4.8) Monocytes # (Auto) 2.0 x10^3/uL (0.0-1.1) 0.8 x10^3/uL (0.0-1.1) Eosinophils # (Auto) 0.0 x10^3/uL (0.0-0.7) 0.0 x10^3/uL (0.0-0.7) Basophils # (Auto) 0.1 x10^3/uL (0.0-0.2) 0.0 x10^3/uL (0.0-0.2) Segmented Neutrophils % 74 % (35-66) Band Neutrophils % 18 % (0-9) Lymphocytes % 3 % (24-48) Monocytes % 5 % (0-10) Platelet Estimate Adequate (ADEQUATE) Prothrombin Time 10.7 SEC (9.4-11.4) Prothromb Time International Ratio 1.0 (0.9-1.1) Activated Partial Thromboplast Time 27 SEC (23-33) D-Dimer (Ruthie) 11.70 mg/L (0.00-0.50) Sodium Level 142 mmol/L (136-145) 141 mmol/L (136-145) Potassium Level 3.2 mmol/L (3.5-5.1) 3.7 mmol/L (3.5-5.1) Chloride Level 103 mmol/L (98-107) 101 mmol/L (98-107) Carbon Dioxide Level 30 mmol/L (21-32) 27 mmol/L (21-32) Anion Gap 9 (6-14) 13 (6-14) Blood Urea Nitrogen 15 mg/dL (7-20) 13 mg/dL (7-20) Creatinine 1.0 mg/dL (0.6-1.0) 1.0 mg/dL (0.6-1.0) Estimated GFR (Cockcroft-Gault) 54.3 54.3 Glucose Level 144 mg/dL (70-99) 184 mg/dL (70-99) Lactic Acid Level 2.5 mmol/L (0.4-2.0) 2.4 mmol/L (0.4-2.0) Calcium Level 8.8 mg/dL (8.5-10.1) 8.9 mg/dL (8.5-10.1) Magnesium Level 1.6 mg/dL (1.8-2.4) Total Bilirubin 0.5 mg/dL (0.2-1.0) Direct Bilirubin 0.2 mg/dL (0.0-0.2) Aspartate Amino Transf (AST/SGOT) 21 U/L (15-37) Alanine Aminotransferase (ALT/SGPT) 21 U/L (14-59) Alkaline Phosphatase 111 U/L (46-116) Creatine Kinase 71 U/L (26-192) Creatine Kinase MB (Mass) 2.3 ng/mL (0.0-3.6) Creatine Kinase MB Relative Index 3.2 % (0-4) Troponin I Quantitative 0.196 ng/mL (0-0.055) 0.279 ng/mL (0-0.055) 0.355 ng/mL (0-0.055) RE-Nml-A-Type Natriuretic Peptide 1416 pg/mL (0-124) Total Protein 7.7 g/dL (6.4-8.2) Albumin 3.0 g/dL (3.4-5.0) Lipase 58 U/L (73-393) Thyroid Stimulating Hormone (TSH) 9.578 uIU/mL (0.358-3.740) Urine Collection Type Unknown Urine Color Straw Urine Clarity Clear Urine pH 5.5 Urine Specific [place] <=1.005 Urine Protein Neg (NEG-TRACE) Urine Glucose (UA) Neg mg/dL (NEG) Urine Ketones (Stick) Neg mg/dL (NEG) Urine Blood Trace (NEG) Urine Nitrite Neg (NEG) Urine Bilirubin Neg (NEG) Urine Urobilinogen Dipstick 0.2 mg/dL (0.2 mg/dL) Urine Leukocyte Esterase Neg (NEG) Urine RBC Occ /HPF (0-2) Urine WBC Occ /HPF (0-4) Urine Squamous Epithelial Cells Few /LPF Urine Bacteria 0 /HPF (0-FEW) Assessment/Plan 1. Slightly elevated troponin level most probably demand ischemia. EKG without acute changes. Recent 2-D echo 01/25/18 showed normal LV function without any wall motion abnormalities. Lexiscan nuclear stress test at that time did not show any significant ischemia. Doubt ACS. 2. Acute respiratory failure secondary to combination of pneumonia and acute COPD exacerbation: Treat per primary team 3. Hyperlipidemia: Continue statin therapy Thank you for your consultation BRO DE LA GARZA MD February 12, 2018 11:32
[2018-02-12 11:50] LABS: BGAS PH 7.49 (7.35-7.45)
--- NOTE | 2018-02-12 12:25 | HP ---
ADMIT DATE: 02/11/2018 HISTORY OF PRESENT ILLNESS: A 72-year-old female came in through the Emergency Room. She has been ill for the last couple of days prior to admission. She said people around her home have been very ill. Anyway, she came in was increased dyspnea, fever, chills, productive sputum, extremely short of breath. The patient otherwise has a history of emphysema, COPD, dependent on 3 liters. The patient was admitted for acute exacerbation of COPD with pneumonia of unspecified etiology, community-acquired and acute respiratory failure. The patient has been exposed by grandchildren as noted above, recently had an episode of aspiration pneumonitis. PAST MEDICAL HISTORY: The patient has episodes of CHF, history of coronary artery disease, diabetes, deconditioning, CVA, diabetes, aspiration, urinary incontinence and deconditioning; also, included angina, anxiety, arthritis, CAD, CHF, COPD, CVA, diabetes, hypertension, UTI and appendectomy. SOCIAL HISTORY: The patient quit smoking here about a year ago. Denies alcohol or drug use. FAMILY HISTORY: The patient's family history is noncontributory. REVIEW OF SYSTEMS: The patient's review of systems is positive for fever and chills as noted, coughing, shortness of breath, acute exacerbation, poor movement of air. Denies nausea, vomiting, chest pain per se. Denies abdominal pain. Denies any melena, hematochezia, hematemesis. Neurologically stable. ALLERGIES: THE PATIENT HAS AN ALLERGY TO IBUPROFEN. HOME MEDICATIONS: DuoNeb treatments, albuterol p.r.n., atorvastatin 40, aspirin 81, Nexium 20. CODE STATUS: The patient is full code. PHYSICAL EXAMINATION: GENERAL: Pleasant white female, looking stated age, quite on her respiratory distress. VITAL SIGNS: The patient's blood pressure is 160/70, respiratory rate 33, pulse 110. The patient's pulse has been as high as 140, temperature of 98.8 on 3.5 liters of oxygen. HEENT: Head is atraumatic, normocephalic. Eyes: PERRLA without jaundice. Mouth and throat were normal. NECK: Supple. LUNGS: Diminished throughout, poor movement of air with hardly any movement whatsoever. CARDIOVASCULAR: Regular sinus rhythm, tachycardic at best. ABDOMEN: Soft, nontender. EXTREMITIES: No clubbing, cyanosis, no edema. NEUROLOGICAL: The patient is alert and oriented. The patient is using some respiratory accessory muscles to breathe. LABORATORY DATA: The patient's white count is 26,000. There is a left shift of 18 bands. IMPRESSION AND PLAN: Sepsis, acute respiratory failure, acute pneumonia community-acquired, history of chronic obstructive pulmonary disease, acute exacerbation of chronic, chronic obstructive pulmonary disease, elevated troponin levels. Cardiology has been consulted. Elevated lactic acid, elevated D-dimer. CTA just reported back, no evidence of a clot, infiltrative process noted, patchy areas of atelectasis, and pneumonia noted in the left lingula. In any case, the patient was placed on double doses of Rocephin as well as Levaquin for sepsis protocol, IV Solu-Medrol, fluids. Continue monitor. The patient is currently very serious situation in the ICU. Consult Cardiology for elevated troponins. CORINNA DIANE MD DR: BRADY/olivia JOB#: [id number] / [id number]
[2018-02-12] MEDS ORDERED: cefTRIAXone IV Push 1 GM VIAL. IVP SCH (21:00)
[2018-02-12] MEDS: ATORVASTATIN CALCIUM 20 MG TABLET PO SCH (21:43)
[2018-02-13] VITALS (22 sets, daily range): BP systolic 127–214; BP diastolic 63–108
[2018-02-13] MEDS: IV RINGERS SOLUTION,LACTATED 1,000 ML IV SCH ×3 (00:36→21:55)
[2018-02-13] MEDS: IPRATRPIUM/ALBUTEROL 0.5/2.5MG 3 ML NEBU. NEB SCH ×4 (02:59→21:36)
[2018-02-13 07:06] LABS: BASO % 0 % (0-3); EOS % 0 % (0-3); HEMATOCRIT 36.7 % (36.0-47.0); HEMOGLOBIN 12.4 g/dL (12.0-15.5); LYMPH # 0.5 x10^3/uL (1.0-4.8); LYMPH % 2 % (24-48); MEAN CORPUSCULAR HEMOGLOBIN 31 pg (25-35); MEAN CORPUSCULAR HGB CONC 34 g/dL (31-37); MEAN CORPUSCULAR VOLUME 91 fL (79-100); MONO % 5 % (0-9); NEUT # 19.2 x10^3uL (1.8-7.7); NEUT % 93 % (31-73); PLATELET COUNT 254 x10^3/uL (140-400); RED BLOOD COUNT 4.02 x10^6/uL (3.50-5.40); WHITE BLOOD COUNT 20.8 x10^3/uL (4.0-11.0)
[2018-02-13 07:17] LABS: CALCIUM 8.6 mg/dL (8.5-10.1); CREATININE 0.9 mg/dL (0.6-1.0); GFR 61.4
[2018-02-13] MEDS: ASPIRIN 81 MG TAB.CHEW PO SCH (07:33)
[2018-02-13] MEDS: PANTOPRAZOLE 40 MG TABLET. PO SCH (07:33)
[2018-02-13] MEDS: POTASSIUM CHLORIDE 20 MEQ TABLET.ER. PO SCH ×2 (08:47→10:21)
[2018-02-13] MEDS: methylPREDNISolone SOD SUCC PF 125 MG/2 ML VIAL. IV SCH ×3 (08:48→21:40)
[2018-02-13] MEDS: LACTOBACILLUS RHAMNOSUS GG 1 CAPSULE. PO SCH ×2 (08:48→21:40)
[2018-02-13] MEDS: cefTRIAXone IV Push 2 GM VIAL. IVP SCH (08:48)
[2018-02-13] MEDS: ENOXAPARIN 40 MG/0.4 ML SYRINGE. SQ SCH (08:49)
[2018-02-13] MEDS: MAGNESIUM CHLORIDE ER 64 MG TABLET.ER PO SCH (08:49)
[2018-02-13] MEDS ORDERED: METOPROLOL SUCC 24HR ER 25 MG TAB.ER.24H. PO ONE (10:30)
--- NOTE | 2018-02-13 11:03 | RAD ---
AP portable chest radiograph 02/13/2018 Clinical History: Shortness of breath. COPD.. An AP erect portable digital radiograph of the chest was obtained. Comparison study is dated 02/11/2018. The cardiac silhouette is borderline enlarged. Atherosclerotic calcification of the thoracic aorta is seen. The thoracic aorta is mildly tortuous. There has been interval improvement in the patchy areas of atelectasis and/or infiltrate involving both lower lobes, right greater than left. No pneumothorax or pleural effusion is seen. The osseous structures are unchanged. Impression: Improving bilateral lower lobe atelectasis and/or infiltrate, right greater than left. Electronically signed by: Angel Stevens MD (02/13/2018 11:00 AM) [facility]
[2018-02-13] MEDS ORDERED: amLODIPine BESYLATE 5 MG TABLET PO SCH (12:00)
[2018-02-13] MEDS: LORazepam 0.5 MG TABLET PO PRN (12:21)
[2018-02-13] MEDS: ATORVASTATIN CALCIUM 20 MG TABLET PO SCH (21:40)
[2018-02-14] VITALS (23 sets, daily range): BP systolic 124–186; BP diastolic 57–85
--- NOTE | 2018-02-14 03:19 | PN ---
DATE: 02/13/2018 SUBJECTIVE: The patient in the ICU, bed #2. She is in with acute respiratory failure as well as pneumonia and sepsis. The patient is a little bit more alert this morning. PHYSICAL EXAMINATION: VITAL SIGNS: Blood pressure is up ____ 208/108 (NC), pulse up to 110, temperature 98.2, oxygen saturation 93 on 3 liters. GENERAL: The patient is alert and oriented x 3. Speech fluent, spontaneous, appropriate. LUNGS: Diminished throughout with expiratory wheezes. CARDIOVASCULAR: Regular sinus rhythm with tachycardic. ABDOMEN: Protuberant, soft, nontender. EXTREMITIES: ____ clubbing, cyanosis. Trace edema. The patient continues to be monitored carefully here in the ICU and she is markedly improved. The patient otherwise seems to be resting fairly comfortably and will continue to monitor patient accordingly. IMPRESSION: Therefore of sepsis, acute respiratory failure, acute pneumonia, community acquired, history of chronic obstructive pulmonary disease, acute exacerbation of chronic obstructive pulmonary disease, elevated troponins. Cardiology consulted. Elevated lactic acid, elevated D-dimer, no evidence of clot, hypertensive urgency, sinus tachycardia, continue on double antibiotics. White count is down to 20,000. PLAN: Continue in the ICU for acute critical care. Length of visit 45 minutes. CORINNA DIANE MD DR: BRADY/olivia JOB#: [id number] / [id number]
[2018-02-14] MEDS: IPRATRPIUM/ALBUTEROL 0.5/2.5MG 3 ML NEBU. NEB SCH ×4 (05:31→21:14)
[2018-02-14 06:58] LABS: BASO % 0 % (0-3); EOS % 0 % (0-3); HEMOGLOBIN 12.9 g/dL (12.0-15.5); LYMPH # 0.7 x10^3/uL (1.0-4.8); LYMPH % 4 % (24-48); MEAN CORPUSCULAR HEMOGLOBIN 31 pg (25-35); MEAN CORPUSCULAR HGB CONC 34 g/dL (31-37); MEAN CORPUSCULAR VOLUME 91 fL (79-100); MONO # 0.6 x10^3/uL (0.0-1.1); MONO % 3 % (0-9); NEUT # 17.2 x10^3uL (1.8-7.7); NEUT % 93 % (31-73); PLATELET COUNT 256 x10^3/uL (140-400); RED BLOOD COUNT 4.18 x10^6/uL (3.50-5.40); RED CELL DISTRIBUTION WIDTH 14.4 % (11.5-14.5); WHITE BLOOD COUNT 18.5 x10^3/uL (4.0-11.0)
[2018-02-14 07:03] LABS: CALCIUM 8.6 mg/dL (8.5-10.1); CREATININE 0.8 mg/dL (0.6-1.0); GFR 70.3
--- NOTE | 2018-02-14 09:23 | PDOC ---
PROGRESS NOTES Diagnosis Problem Problems Medical Problems: (1) Sepsis Status: Acute Assessment Problems Medical Problems: (1) Sepsis Status: Acute 1. chest pain, consistent with musculoskeletal pain. LV function normal by echo 2 weeks ago. Normal perfusion by MPI 2 weeks ago. Repeat ekg pending. 2. Slightly elevated troponin level most probably demand ischemia. EKG without acute changes. 3. Acute respiratory failure secondary to combination of pneumonia and acute COPD exacerbation: Treat per primary team 4. Hyperlipidemia: Continue statin therapy Subjective c/o mid sternal to epigastric pain, worse with cough and palpation. Continue to complain of cough. No palpitations or lightheadedness. Objective Vital Signs Date Time Temp Pulse Resp B/P (MAP) Pulse Ox O2 Delivery O2 Flow Rate FiO2 02/14/18 09:17 98 Nasal Cannula 3.0 02/14/18 06:00 80 20 167/77 (107) 02/13/18 19:11 98.9 Intake and Output 02/14/18 07:00 Intake Total 1150 ml Output Total 3550 ml Balance -2400 ml Intake Oral 1000 ml IV Total 150 ml Output Urine Total 3550 ml # Voids 1 # Bowel Movements 1 Abdomen: Normal bowel sounds, Soft, No tenderness Heart: Regular rate, Normal S1, Normal S2 Extremities: No cyanosis, Normal pulses General: Alert, Oriented X3, Cooperative, mild distress Lungs: Other (coarse with expiratory wheezes) Neuro: Normal speech Psych/Mental Status: Mental status NL, Mood NL Review of Relevant I have reviewed the following items ra (where applicable) has been applied. Labs Laboratory Tests Test 02/12/18 11:25 02/12/18 18:00 02/13/18 06:16 02/14/18 05:46 Blood Gas pH 7.49 (7.35-7.45) Blood Gas PCO2 45 mmHg (35-45) Blood Gas PO2 82 mmHg (71-100) Blood Gas HCO3 34 mmol/L (22-26) Arterial Bld O2 Saturation (Calc) 97 % (92-99) FiO2 32 % Mycoplasma Serology (LAB) Negative (NEGATIVE) White Blood Count 20.8 x10^3/uL (4.0-11.0) 18.5 x10^3/uL (4.0-11.0) Red Blood Count 4.02 x10^6/uL (3.50-5.40) 4.18 x10^6/uL (3.50-5.40) Hemoglobin 12.4 g/dL (12.0-15.5) 12.9 g/dL (12.0-15.5) Hematocrit 36.7 % (36.0-47.0) 38.0 % (36.0-47.0) Mean Corpuscular Volume 91 fL (79-100) 91 fL (79-100) Mean Corpuscular Hemoglobin 31 pg (25-35) 31 pg (25-35) Mean Corpuscular Hemoglobin Concent 34 g/dL (31-37) 34 g/dL (31-37) Red Cell Distribution Width 14.0 % (11.5-14.5) 14.4 % (11.5-14.5) Platelet Count 254 x10^3/uL (140-400) 256 x10^3/uL (140-400) Neutrophils (%) (Auto) 93 % (31-73) 93 % (31-73) Lymphocytes (%) (Auto) 2 % (24-48) 4 % (24-48) Monocytes (%) (Auto) 5 % (0-9) 3 % (0-9) Eosinophils (%) (Auto) 0 % (0-3) 0 % (0-3) Basophils (%) (Auto) 0 % (0-3) 0 % (0-3) Neutrophils # (Auto) 19.2 x10^3uL (1.8-7.7) 17.2 x10^3uL (1.8-7.7) Lymphocytes # (Auto) 0.5 x10^3/uL (1.0-4.8) 0.7 x10^3/uL (1.0-4.8) Monocytes # (Auto) 1.0 x10^3/uL (0.0-1.1) 0.6 x10^3/uL (0.0-1.1) Eosinophils # (Auto) 0.0 x10^3/uL (0.0-0.7) 0.0 x10^3/uL (0.0-0.7) Basophils # (Auto) 0.0 x10^3/uL (0.0-0.2) 0.0 x10^3/uL (0.0-0.2) Sodium Level 143 mmol/L (136-145) 144 mmol/L (136-145) Potassium Level 3.0 mmol/L (3.5-5.1) 4.0 mmol/L (3.5-5.1) Chloride Level 102 mmol/L (98-107) 104 mmol/L (98-107) Carbon Dioxide Level 32 mmol/L (21-32) 34 mmol/L (21-32) Anion Gap 9 (6-14) 6 (6-14) Blood Urea Nitrogen 14 mg/dL (7-20) 15 mg/dL (7-20) Creatinine 0.9 mg/dL (0.6-1.0) 0.8 mg/dL (0.6-1.0) Estimated GFR (Cockcroft-Gault) 61.4 70.3 Glucose Level 173 mg/dL (70-99) 152 mg/dL (70-99) Calcium Level 8.6 mg/dL (8.5-10.1) 8.6 mg/dL (8.5-10.1) Microbiology 02/11/18 Blood Culture - Preliminary, Resulted NO GROWTH AFTER 2 DAYS... Medications Current Medications Aspirin (Children'S Aspirin) 324 mg 1X ONCE PO Last administered on 02/11/18at 22:56; Start 02/11/18 at 23:00; Stop 02/11/18 at 23:01; Status DC Lactated Ringer's 1,000 ml @ 100 mls/hr Q10H IV Last administered on at 22:55; Start 02/11/18 at 22:31; Stop 02/12/18 at 08:30; Status DC Albuterol/ Ipratropium (Duoneb) 3 ml 1X ONCE NEB Last administered on at 22:56; Start 02/11/18 at 23:00; Stop 02/11/18 at 23:01; Status DC Methylprednisolone Sodium Succinate (SOLU-Medrol 125MG VIAL) 125 mg 1X ONCE IV Last administered on 02/11/18at 22:55; Start 02/11/18 at 23:00; Stop 02/11/18 at 23:01; Status DC Ceftriaxone Sodium 1 gm/ Sodium Chloride 50 ml @ 100 mls/hr 1X ONCE IV ; Start 02/11/18 at 22:45; Stop 02/11/18 at 23:14; Status UNV Ceftriaxone Sodium (Rocephin) 1 gm 1X ONCE IVP Last administered on 02/11/18at 22:56; Start 02/11/18 at 23:00; Stop 02/11/18 at 23:01; Status DC Azithromycin (Zithromax) 500 mg 1X ONCE PO Last administered on 02/12/18at 01: 11; Start 02/12/18 at 00:30; Stop 02/12/18 at 00:31; Status DC Enoxaparin Sodium (Lovenox 80mg Syringe) 70 mg 1X ONCE SQ Last administered on 02/12/18at 01:12; Start 02/12/18 at 00:30; Stop 02/12/18 at 00:31; Status DC Albuterol/ Ipratropium (Duoneb) 3 ml RTQID NEB Last administered on 02/12/18at 05:23; Start 02/12/18 at 08:00; Stop 02/12/18 at 08:00; Status DC Ceftriaxone Sodium 1 gm/ Sodium Chloride 50 ml @ 100 mls/hr 1X ONCE IV ; Start 02/12/18 at 00:15; Stop 02/12/18 at 00:44; Status UNV Azithromycin (Zithromax) 250 mg DAILY PO ; Start 02/12/18 at 09:00; Stop at 09:00; Status DC Lactated Ringer's 1,000 ml @ 1,000 mls/hr 1X ONCE IV Last administered on at 04:00; Start 02/12/18 at 00:30; Stop 02/12/18 at 01:29; Status DC Lactated Ringer's 1,000 ml @ 50 mls/hr Q20H IV Last administered on 02/13/18at 07:28; Start 02/12/18 at 00:30 Enoxaparin Sodium (Lovenox 80mg Syringe) 70 mg BID SQ Last administered on 02/12at 21:43; Start 02/12/18 at 09:00; Stop 02/13/18 at 08:28; Status DC Methylprednisolone Sodium Succinate (SOLU-Medrol 125MG VIAL) 125 mg DAILY IV ; Start 02/12/18 at 09:00; Stop 02/12/18 at 09:00; Status DC Aspirin (Children'S Aspirin) 81 mg DAILY PO ; Start 02/12/18 at 09:00; Stop at 09:00; Status DC Furosemide (Lasix) 40 mg 1X ONCE IVP Last administered on 02/12/18at 01:11; Start 02/12/18 at 00:30; Stop 02/12/18 at 00:31; Status DC Ceftriaxone Sodium (Rocephin) 1 gm Q24H IVP ; Start 02/12/18 at 21:00; Stop at 21:00; Status DC Potassium Chloride (KCl Oral Soln) 40 meq 1X ONCE PO Last administered on 02/12at 01:11; Start 02/12/18 at 01:00; Stop 02/12/18 at 01:01; Status DC Albuterol/ Ipratropium (Duoneb) 3 ml RTQID NEB Last administered on 02/14/18at 09:17; Start 02/12/18 at 08:00 Albuterol Sulfate (Ventolin) 2.5 mg PRN Q4HRS PRN NEB SHORTNESS OF BREATH Last administered on 02/13/18at 09:28; Start 02/12/18 at 04:30 Aspirin (Children'S Aspirin) 81 mg DAILYWBKFT PO Last administered on at 07:33; Start 02/12/18 at 08:00 Atorvastatin Calcium (Lipitor) 40 mg HS PO Last administered on 02/13/18at 21:40 ; Start 02/12/18 at 21:00 Pantoprazole Sodium (Protonix) 40 mg DAILYAC PO Last administered on 02/13/18at 07:33; Start 02/12/18 at 07:30 Iohexol (Omnipaque 300 Mg/ml) 75 ml 1X ONCE IV Last administered on 02/12/18at 08:20; Start 02/12/18 at 07:45; Stop 02/12/18 at 07:47; Status DC Lactobacillus Rhamnosus (Culturelle) 1 cap BID PO Last administered on at 21:40; Start 02/12/18 at 09:00 Ceftriaxone Sodium (Rocephin) 2 gm Q24H IVP Last administered on 02/13/18at 08: 48; Start 02/12/18 at 09:00 Methylprednisolone Sodium Succinate (SOLU-Medrol 125MG VIAL) 40 mg TID IV Last administered on 02/13/18at 21:40; Start 02/12/18 at 09:00 Levofloxacin/ Dextrose 150 ml @ 150 mls/hr Q24H IV Last administered on at 08:47; Start 02/12/18 at 09:00 Magnesium Chloride (Mag Delay) 64 mg DAILY PO Last administered on 02/13/18at 08 :49; Start 02/12/18 at 09:00 Potassium Chloride (Klor-Con) 40 meq Q2H PO Last administered on 02/13/18at 10: 21; Start 02/13/18 at 08:15; Stop 02/13/18 at 10:16; Status DC Enoxaparin Sodium (Lovenox 40mg Syringe) 40 mg DAILY SQ Last administered on at 08:49; Start 02/13/18 at 09:00 Zolpidem Tartrate (Ambien) 10 mg PRN QHS PRN PO INSOMNIA, MAY REPEAT IN 1HR; Start 02/13/18 at 10:30 Guaifenesin (Mucinex Er) 600 mg BID PO Last administered on 02/13/18at 21:40; Start 02/13/18 at 12:00 Metoprolol Succinate (Toprol Xl) 25 mg 1X ONCE PO Last administered on at 10:40; Start 02/13/18 at 10:30; Stop 02/13/18 at 10:31; Status DC Metoprolol Succinate (Toprol Xl) 25 mg DAILY PO ; Start 02/14/18 at 09:00 Amlodipine Besylate (Norvasc) 10 mg DAILY PO Last administered on 02/13/18at 12: 00; Start 02/13/18 at 12:00; Stop 02/13/18 at 12:18; Status DC Lorazepam (Ativan) 0.5 mg PRN Q8HRS PRN PO ANXIETY / AGITATION Last administered on 02/13/18at 12:21; Start 02/13/18 at 12:15 Amlodipine Besylate (Norvasc) 10 mg DAILY PO ; Start 02/13/18 at 12:18 Active Scripts Active Albuterol Sulfate Conc Neb Soln (Albuterol Sulfate) 2.5 Mg/0.5 Ml Vial.neb 1 Vial NEB Q4HRS PRN Nexium Capsule (Esomeprazole Magnesium) 20 Mg Capsule.dr 1 Cap PO DAILY Duoneb 0.5-3(2.5) Mg/3 Ml (Albuterol/Ipratropium) 3 Ml Ampul.neb 3 Ml NEB RTQID Reported Aspir-Low (Aspirin) 81 Mg Tablet.dr 1 Tab PO DAILY Atorvastatin Calcium 40 Mg Tablet 1 Tab PO HS Vitals/I & O Vital Sign - Last 24 Hours 02/13/18 02/13/18 02/13/18 02/13/18 10:00 10:40 11:14 11:37 Pulse 96 103 103 Resp B/P (MAP) 213/85 (127) 213/85 200/79 (119) Pulse Ox 95 97 98 O2 Delivery Nasal Cannula Nasal Cannula Nasal Cannula O2 Flow Rate 3.5 3.5 3.0 02/13/18 02/13/18 02/13/18 02/13/18 12:00 12:00 12:00 13:00 Temp 99.0 Pulse 107 107 93 Resp B/P (MAP) 214/89 214/89 (130) 170/83 (112) Pulse Ox 94 98 O2 Delivery Nasal Cannula Nasal Cannula Nasal Cannula O2 Flow Rate 3.0 3.0 3.0 02/13/18 02/13/18 02/13/18 02/13/18 14:22 15:37 16:00 16:12 Pulse 93 95 Resp B/P (MAP) 194/88 (123) 205/92 (129) Pulse Ox 97 95 97 O2 Delivery Nasal Cannula Nasal Cannula Nasal Cannula Nasal Cannula O2 Flow Rate 3.0 3.0 3.0 3.0 02/13/18 02/13/18 02/13/18 02/13/18 16:24 18:00 19:11 19:40 Temp 98.9 Pulse 100 86 98 Resp B/P (MAP) 174/71 (105) 150/63 (92) 156/72 (100) Pulse Ox 98 97 98 O2 Delivery Nasal Cannula Nasal Cannula Nasal Cannula Nasal Cannula O2 Flow Rate 3.0 3.0 3.0 3.0 02/13/18/02/13/18/ 20:12 21:12 21:35 22:00 Pulse 86 83 96 Resp 24 20 24 B/P (MAP) 163/76 (105) 150/71 (97) 171/78 (109) Pulse Ox 97 97 98 O2 Delivery Nasal Cannula Nasal Cannula Nasal Cannula Nasal Cannula O2 Flow Rate 3.0 3.0 3.0 3.0 02/13/18 02/13/18 02/14/18 02/14/18 23:00 23:50 00:01 01:00 Pulse 72 74 70 Resp 24 20 20 B/P (MAP) 163/85 (111) 142/72 (95) 136/64 (88) Pulse Ox 98 O2 Delivery Nasal Cannula Nasal Cannula Nasal Cannula Nasal Cannula O2 Flow Rate 3.0 3.0 3.0 3.0 02/14/18 02/14/18 02/14/18 02/14/18 02:00 03:10 03:45 04:00 Pulse 70 92 78 Resp 20 24 20 B/P (MAP) 162/78 (106) 172/83 (112) 140/70 (93) Pulse Ox 98 O2 Delivery Nasal Cannula Nasal Cannula Nasal Cannula Nasal Cannula O2 Flow Rate 3.0 3.0 3.0 3.0 02/14/18 02/14/18 02/14/18 02/14/18 05:00 05:30 06:00 09:17 Pulse 80 80 Resp 20 20 B/P (MAP) 143/67 (92) 167/77 (107) Pulse Ox 99 99 98 O2 Delivery Nasal Cannula Nasal Cannula Nasal Cannula Nasal Cannula O2 Flow Rate 3.0 3.0 3.0 3.0 Intake and Output 02/13/18 02/13/18 02/14/18 15:00 23:00 07:00 Intake Total 790 ml 360 ml Output Total 2200 ml 1350 ml Balance 790 ml -1840 ml -1350 ml MARISSA ROBERTS BARREL RIFLER February 14, 2018 09:23
[2018-02-14] MEDS ORDERED: hydrALAZINE 20 MG/ML VIAL. IV PRN (09:30)
[2018-02-14 09:32] LABS: % BANDS 6 % (0-9); % LYMPHS 7 % (24-48); % METAS 1 % (0-0); % MONOS 1 % (0-10); % SEGS 85 % (35-66); PLT ESTIMATE ADEQUATE (ADEQUATE); TOXIC GRANULATION MOD
[2018-02-14] MEDS: MAGNESIUM CHLORIDE ER 64 MG TABLET.ER PO SCH (09:36)
[2018-02-14] MEDS: LORazepam 0.5 MG TABLET PO PRN (09:36)
[2018-02-14] MEDS: LACTOBACILLUS RHAMNOSUS GG 1 CAPSULE. PO SCH ×2 (09:36→21:16)
[2018-02-14] MEDS: methylPREDNISolone SOD SUCC PF 125 MG/2 ML VIAL. IV SCH ×2 (09:36→14:10)
[2018-02-14] MEDS: PANTOPRAZOLE 40 MG TABLET. PO SCH (09:36)
[2018-02-14] MEDS: ASPIRIN 81 MG TAB.CHEW PO SCH (09:37)
[2018-02-14] MEDS: ENOXAPARIN 40 MG/0.4 ML SYRINGE. SQ SCH (09:37)
[2018-02-14] MEDS: amLODIPine BESYLATE 10 MG TABLET PO SCH (09:37)
[2018-02-14] MEDS: cefTRIAXone IV Push 2 GM VIAL. IVP SCH (09:38)
[2018-02-14] MEDS: METOPROLOL SUCC 24HR ER 25 MG TAB.ER.24H. PO SCH (09:38)
--- NOTE | 2018-02-14 11:50 | EKG ---
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
[2018-02-14] MEDS ORDERED: NITROGLYCERIN SUBLINGUAL 0.4 MG BOTTLE OF 25. SL PRN (12:00)
[2018-02-14] MEDS: MORPHINE SULFATE 4 MG/ML DISP.SYRIN. IV PRN ×2 (12:15→19:28)
[2018-02-14] MEDS: IV RINGERS SOLUTION,LACTATED 1,000 ML IV SCH (20:25)
[2018-02-14] MEDS: methylPREDNISolone SOD SUCC PF 40 MG/ML VIAL. IV SCH (21:16)
[2018-02-14] MEDS: ATORVASTATIN CALCIUM 20 MG TABLET PO SCH (21:16)
[2018-02-14] MEDS: ZOLPIDEM 5 MG TABLET. PO PRN (21:21)
[2018-02-15] VITALS (14 sets, daily range): BP systolic 108–169; BP diastolic 47–76
[2018-02-15] MEDS: IPRATRPIUM/ALBUTEROL 0.5/2.5MG 3 ML NEBU. NEB SCH ×4 (06:08→22:11)
[2018-02-15 06:47] LABS: BASO % 0 % (0-3); EOS % 0 % (0-3); HEMATOCRIT 38.4 % (36.0-47.0); LYMPH # 0.7 x10^3/uL (1.0-4.8); LYMPH % 4 % (24-48); MEAN CORPUSCULAR HEMOGLOBIN 31 pg (25-35); MEAN CORPUSCULAR HGB CONC 34 g/dL (31-37); MEAN CORPUSCULAR VOLUME 91 fL (79-100); MONO # 0.5 x10^3/uL (0.0-1.1); MONO % 3 % (0-9); NEUT # 15.4 x10^3uL (1.8-7.7); NEUT % 92 % (31-73); PLATELET COUNT 257 x10^3/uL (140-400); RED BLOOD COUNT 4.22 x10^6/uL (3.50-5.40); RED CELL DISTRIBUTION WIDTH 14.6 % (11.5-14.5); WHITE BLOOD COUNT 16.7 x10^3/uL (4.0-11.0)
[2018-02-15 07:00] LABS: ALBUMIN 2.2 g/dL (3.4-5.0); ALBUMIN/GLOBULIN RATIO 0.5 (1.0-1.7); CREATININE 0.8 mg/dL (0.6-1.0); GFR 70.3; POTASSIUM 3.9 mmol/L (3.5-5.1); TOTAL BILIRUBIN 0.3 mg/dL (0.2-1.0); TOTAL PROTEIN 6.3 g/dL (6.4-8.2)
--- NOTE | 2018-02-15 07:01 | PN ---
DATE: SUBJECTIVE: A 72-year-old female in ICU bed #2 in with acute respiratory failure and pneumonia. The patient is doing fairly well, markedly improved, although her white count is still hanging around 18,000. The patient seems to be a little bit better overall in terms of her strength, but still requiring aggressive therapies as well as aggressive antibiotic therapy. The patient is otherwise making good progress overall. OBJECTIVE: VITAL SIGNS: Blood pressure 150/63, respiratory rate 25, pulse 93, and oxygen saturation good at 94 on 2.5 liters. The patient is continued to be monitored and may need to consider skilled unit for this patient. IMPRESSION: Therefore is sepsis, acute respiratory failure, acute pneumonia, community acquired; history of chronic obstructive pulmonary disease, acute exacerbation of chronic obstructive pulmonary disease, elevated troponins, elevated lactic acid. Continue to monitor the patient accordingly. Continue with IV antibiotic therapy. Last chest x-ray showed improving infiltrate. CORINNA DIANE MD DR: BRADY/olivia JOB#: [id number] / [id number]
[2018-02-15] MEDS: ENOXAPARIN 40 MG/0.4 ML SYRINGE. SQ SCH (08:22)
[2018-02-15] MEDS: methylPREDNISolone SOD SUCC PF 40 MG/ML VIAL. IV SCH ×2 (08:23→20:29)
[2018-02-15] MEDS: MAGNESIUM CHLORIDE ER 64 MG TABLET.ER PO SCH (08:23)
[2018-02-15] MEDS: ASPIRIN 81 MG TAB.CHEW PO SCH (08:23)
[2018-02-15] MEDS: LACTOBACILLUS RHAMNOSUS GG 1 CAPSULE. PO SCH ×2 (08:25→20:29)
[2018-02-15] MEDS: METOPROLOL SUCC 24HR ER 25 MG TAB.ER.24H. PO SCH (08:25)
[2018-02-15] MEDS: PANTOPRAZOLE 40 MG TABLET. PO SCH (08:26)
[2018-02-15] MEDS: amLODIPine BESYLATE 10 MG TABLET PO SCH (08:26)
[2018-02-15] MEDS: cefTRIAXone IV Push 2 GM VIAL. IVP SCH (08:26)
[2018-02-15] MEDS ORDERED: ACETAMINOPHEN 325 MG TABLET PO ONE (10:11)
[2018-02-15] MEDS ORDERED: ACETAMINOPHEN 500 MG TABLET PO PRN (10:15)
[2018-02-15] MEDS: ROFLUMILAST 500 MCG TABLET PO SCH (10:17)
[2018-02-15] MEDS: ACETAMINOPHEN 325 MG TABLET PO PRN (10:24)
[2018-02-15] MEDS: IV RINGERS SOLUTION,LACTATED 1,000 ML IV SCH (13:45)
[2018-02-15] MEDS: ATORVASTATIN CALCIUM 20 MG TABLET PO SCH (20:29)
[2018-02-15] MEDS: LORazepam 0.5 MG TABLET PO PRN (20:29)
[2018-02-15] MEDS: ZOLPIDEM 5 MG TABLET. PO PRN (20:29)
[2018-02-16] VITALS (10 sets, daily range): BP systolic 119–155; BP diastolic 54–81
[2018-02-16] MEDS: IPRATRPIUM/ALBUTEROL 0.5/2.5MG 3 ML NEBU. NEB SCH ×4 (05:53→23:31)
[2018-02-16] MEDS: IV RINGERS SOLUTION,LACTATED 1,000 ML IV SCH (08:28)
[2018-02-16] MEDS: ENOXAPARIN 40 MG/0.4 ML SYRINGE. SQ SCH (08:29)
[2018-02-16] MEDS: LACTOBACILLUS RHAMNOSUS GG 1 CAPSULE. PO SCH ×2 (08:29→20:51)
[2018-02-16] MEDS: methylPREDNISolone SOD SUCC PF 40 MG/ML VIAL. IV SCH (08:29)
[2018-02-16] MEDS: cefTRIAXone IV Push 2 GM VIAL. IVP SCH (08:29)
[2018-02-16] MEDS: PANTOPRAZOLE 40 MG TABLET. PO SCH (08:30)
[2018-02-16] MEDS: METOPROLOL SUCC 24HR ER 25 MG TAB.ER.24H. PO SCH (08:30)
[2018-02-16] MEDS: MAGNESIUM CHLORIDE ER 64 MG TABLET.ER PO SCH (08:30)
[2018-02-16] MEDS: amLODIPine BESYLATE 10 MG TABLET PO SCH (08:30)
[2018-02-16] MEDS: ASPIRIN 81 MG TAB.CHEW PO SCH (08:30)
[2018-02-16] MEDS: ROFLUMILAST 500 MCG TABLET PO SCH (08:30)
--- NOTE | 2018-02-16 09:10 | PDOC ---
PROGRESS NOTES Diagnosis Problem Problems Medical Problems: (1) Sepsis Status: Acute Assessment Problems Medical Problems: (1) Sepsis Status: Acute 1. chest pain, consistent with musculoskeletal pain, improving. LV function normal by echo 2 weeks ago. Normal perfusion by MPI 2 weeks ago. 2. Slightly elevated troponin level most probably demand ischemia. EKG without acute changes. 3. Acute respiratory failure secondary to combination of pneumonia and acute COPD exacerbation: Treat per primary team 4. Hyperlipidemia: Continue statin therapy Subjective CP improving but still occurring with cough. Continued cough and mild dyspnea. no palpitations or lightheadedness. no new complaints. Objective Vital Signs Date Time Temp Pulse Resp B/P (MAP) Pulse Ox O2 Delivery O2 Flow Rate FiO2 02/16/18 08:30 86 148/72 02/16/18 06:35 97.7 23 98 Nasal Cannula 2.0 Intake and Output 02/16/18 07:00 Intake Total 3250 ml Output Total 2100 ml Balance 1150 ml Intake Oral 1000 ml IV Total 1747 ml Other 503 ml Output Urine Total 2100 ml Abdomen: Normal bowel sounds, Soft, No tenderness Heart: Regular rate, Normal S1, Normal S2 Extremities: No cyanosis, Normal pulses General: Alert, Oriented X3, Cooperative HEENT: Atraumatic, EOMI Lungs: Other (coarse with expiratory wheezing) Neuro: Normal speech Psych/Mental Status: Mental status NL, Mood NL Review of Relevant I have reviewed the following items ra (where applicable) has been applied. Labs Laboratory Tests Test 02/14/18 12:07 02/15/18 06:04 Troponin I Quantitative 0.076 ng/mL (0-0.055) White Blood Count 16.7 x10^3/uL (4.0-11.0) Red Blood Count 4.22 x10^6/uL (3.50-5.40) Hemoglobin 13.0 g/dL (12.0-15.5) Hematocrit 38.4 % (36.0-47.0) Mean Corpuscular Volume 91 fL (79-100) Mean Corpuscular Hemoglobin 31 pg (25-35) Mean Corpuscular Hemoglobin Concent 34 g/dL (31-37) Red Cell Distribution Width 14.6 % (11.5-14.5) Platelet Count 257 x10^3/uL (140-400) Neutrophils (%) (Auto) 92 % (31-73) Lymphocytes (%) (Auto) 4 % (24-48) Monocytes (%) (Auto) 3 % (0-9) Eosinophils (%) (Auto) 0 % (0-3) Basophils (%) (Auto) 0 % (0-3) Neutrophils # (Auto) 15.4 x10^3uL (1.8-7.7) Lymphocytes # (Auto) 0.7 x10^3/uL (1.0-4.8) Monocytes # (Auto) 0.5 x10^3/uL (0.0-1.1) Eosinophils # (Auto) 0.0 x10^3/uL (0.0-0.7) Basophils # (Auto) 0.0 x10^3/uL (0.0-0.2) Sodium Level 142 mmol/L (136-145) Potassium Level 3.9 mmol/L (3.5-5.1) Chloride Level 104 mmol/L (98-107) Carbon Dioxide Level 36 mmol/L (21-32) Anion Gap 2 (6-14) Blood Urea Nitrogen 19 mg/dL (7-20) Creatinine 0.8 mg/dL (0.6-1.0) Estimated GFR (Cockcroft-Gault) 70.3 BUN/Creatinine Ratio 24 (6-20) Glucose Level 146 mg/dL (70-99) Calcium Level 8.0 mg/dL (8.5-10.1) Total Bilirubin 0.3 mg/dL (0.2-1.0) Aspartate Amino Transf (AST/SGOT) 24 U/L (15-37) Alanine Aminotransferase (ALT/SGPT) 70 U/L (14-59) Alkaline Phosphatase 117 U/L (46-116) Total Protein 6.3 g/dL (6.4-8.2) Albumin 2.2 g/dL (3.4-5.0) Albumin/Globulin Ratio 0.5 (1.0-1.7) Microbiology 02/11/18 Blood Culture - Preliminary, Resulted NO GROWTH AFTER 4 DAYS... Medications Current Medications Aspirin (Children'S Aspirin) 324 mg 1X ONCE PO Last administered on 02/11/18at 22:56; Start 02/11/18 at 23:00; Stop 02/11/18 at 23:01; Status DC Lactated Ringer's 1,000 ml @ 100 mls/hr Q10H IV Last administered on at 22:55; Start 02/11/18 at 22:31; Stop 02/12/18 at 08:30; Status DC Albuterol/ Ipratropium (Duoneb) 3 ml 1X ONCE NEB Last administered on at 22:56; Start 02/11/18 at 23:00; Stop 02/11/18 at 23:01; Status DC Methylprednisolone Sodium Succinate (SOLU-Medrol 125MG VIAL) 125 mg 1X ONCE IV Last administered on 02/11/18at 22:55; Start 02/11/18 at 23:00; Stop 02/11/18 at 23:01; Status DC Ceftriaxone Sodium 1 gm/ Sodium Chloride 50 ml @ 100 mls/hr 1X ONCE IV ; Start 02/11/18 at 22:45; Stop 02/11/18 at 23:14; Status UNV Ceftriaxone Sodium (Rocephin) 1 gm 1X ONCE IVP Last administered on 02/11/18at 22:56; Start 02/11/18 at 23:00; Stop 02/11/18 at 23:01; Status DC Azithromycin (Zithromax) 500 mg 1X ONCE PO Last administered on 02/12/18at 01: 11; Start 02/12/18 at 00:30; Stop 02/12/18 at 00:31; Status DC Enoxaparin Sodium (Lovenox 80mg Syringe) 70 mg 1X ONCE SQ Last administered on 02/12/18at 01:12; Start 02/12/18 at 00:30; Stop 02/12/18 at 00:31; Status DC Albuterol/ Ipratropium (Duoneb) 3 ml RTQID NEB Last administered on 02/12/18at 05:23; Start 02/12/18 at 08:00; Stop 02/12/18 at 08:00; Status DC Ceftriaxone Sodium 1 gm/ Sodium Chloride 50 ml @ 100 mls/hr 1X ONCE IV ; Start 02/12/18 at 00:15; Stop 02/12/18 at 00:44; Status UNV Azithromycin (Zithromax) 250 mg DAILY PO ; Start 02/12/18 at 09:00; Stop at 09:00; Status DC Lactated Ringer's 1,000 ml @ 1,000 mls/hr 1X ONCE IV Last administered on at 04:00; Start 02/12/18 at 00:30; Stop 02/12/18 at 01:29; Status DC Lactated Ringer's 1,000 ml @ 50 mls/hr Q20H IV Last administered on 02/16/18at 08:28; Start 02/12/18 at 00:30 Enoxaparin Sodium (Lovenox 80mg Syringe) 70 mg BID SQ Last administered on 02/12at 21:43; Start 02/12/18 at 09:00; Stop 02/13/18 at 08:28; Status DC Methylprednisolone Sodium Succinate (SOLU-Medrol 125MG VIAL) 125 mg DAILY IV ; Start 02/12/18 at 09:00; Stop 02/12/18 at 09:00; Status DC Aspirin (Children'S Aspirin) 81 mg DAILY PO ; Start 02/12/18 at 09:00; Stop at 09:00; Status DC Furosemide (Lasix) 40 mg 1X ONCE IVP Last administered on 02/12/18at 01:11; Start 02/12/18 at 00:30; Stop 02/12/18 at 00:31; Status DC Ceftriaxone Sodium (Rocephin) 1 gm Q24H IVP ; Start 02/12/18 at 21:00; Stop at 21:00; Status DC Potassium Chloride (KCl Oral Soln) 40 meq 1X ONCE PO Last administered on 02/12at 01:11; Start 02/12/18 at 01:00; Stop 02/12/18 at 01:01; Status DC Albuterol/ Ipratropium (Duoneb) 3 ml RTQID NEB Last administered on 02/15/18at 06:08; Start 02/12/18 at 08:00; Stop 02/15/18 at 09:37; Status DC Albuterol Sulfate (Ventolin) 2.5 mg PRN Q4HRS PRN NEB SHORTNESS OF BREATH Last administered on 02/13/18at 09:28; Start 02/12/18 at 04:30 Aspirin (Children'S Aspirin) 81 mg DAILYWBKFT PO Last administered on at 08:30; Start 02/12/18 at 08:00 Atorvastatin Calcium (Lipitor) 40 mg HS PO Last administered on 02/15/18 20:29 ; Start 02/12/18 at 21:00 Pantoprazole Sodium (Protonix) 40 mg DAILYAC PO Last administered on 02/16/18 08:30; Start 02/12/18 at 07:30 Iohexol (Omnipaque 300 Mg/ml) 75 ml 1X ONCE IV Last administered on 02/12/18 08:20; Start 02/12/18 at 07:45; Stop 02/12/18 at 07:47; Status DC Lactobacillus Rhamnosus (Culturelle) 1 cap BID PO Last administered on 08:29; Start 02/12/18 at 09:00 Ceftriaxone Sodium (Rocephin) 2 gm Q24H IVP Last administered on 02/16/18 08: 29; Start 02/12/18 at 09:00 Methylprednisolone Sodium Succinate (SOLU-Medrol 125MG VIAL) 40 mg TID IV Last administered on 02/14/18at 14:10; Start 02/12/18 at 09:00; Stop 02/14/18 at 18:36 ; Status DC Levofloxacin/ Dextrose 150 ml @ 150 mls/hr Q24H IV Last administered on 08:29; Start 02/12/18 at 09:00 Magnesium Chloride (Mag Delay) 64 mg DAILY PO Last administered on 02/16/18 08 :30; Start 02/12/18 at 09:00 Potassium Chloride (Klor-Con) 40 meq Q2H PO Last administered on 02/13/18at 10: 21; Start 02/13/18 at 08:15; Stop 02/13/18 at 10:16; Status DC Enoxaparin Sodium (Lovenox 40mg Syringe) 40 mg DAILY SQ Last administered on 08:29; Start 02/13/18 at 09:00 Zolpidem Tartrate (Ambien) 10 mg PRN QHS PRN PO INSOMNIA, MAY REPEAT IN 1HR Last administered on 02/15/18 20:29; Start 02/13/18 at 10:30 Guaifenesin (Mucinex Er) 600 mg BID PO Last administered on 02/16/18 08:30; Start 02/13/18 at 12:00 Metoprolol Succinate (Toprol Xl) 25 mg 1X ONCE PO Last administered on at 10:40; Start 02/13/18 at 10:30; Stop 02/13/18 at 10:31; Status DC Metoprolol Succinate (Toprol Xl) 25 mg DAILY PO Last administered on 02/16/18at 08:30; Start 02/14/18 at 09:00 Amlodipine Besylate (Norvasc) 10 mg DAILY PO Last administered on 02/13/18at 12: 00; Start 02/13/18 at 12:00; Stop 02/13/18 at 12:18; Status DC Lorazepam (Ativan) 0.5 mg PRN Q8HRS PRN PO ANXIETY / AGITATION Last administered on 02/15/18at 20:29; Start 02/13/18 at 12:15 Amlodipine Besylate (Norvasc) 10 mg DAILY PO Last administered on 02/16/18at 08: 30; Start 02/13/18 at 12:18 Hydralazine HCl (Apresoline) 10 mg PRN Q4HRS PRN IV ELEVATED BP, SEE COMMENTS Last administered on 02/14/18at 11:18; Start 02/14/18 at 09:30 Nitroglycerin (Nitrostat) 0.4 mg PRN Q5MIN PRN SL CHEST PAIN; Start 02/14/18 at 12:00 Morphine Sulfate (Morphine 4mg Syringe) 2 mg PRN Q2HR PRN IV PAIN Last administered on 02/14/18at 19:28; Start 02/14/18 at 12:00 Methylprednisolone Sodium Succinate (SOLU-Medrol 40MG VIAL) 40 mg BID IV Last administered on 02/16/18at 08:29; Start 02/14/18 at 21:00 Albuterol/ Ipratropium (Duoneb) 3 ml RTQID NEB Last administered on 02/16/18at 05:53; Start 02/15/18 at 12:00 Acetaminophen (Tylenol) 650 mg PRN Q6HRS PRN PO PAIN / TEMP; Start 02/15/18 at 10:15; Stop 02/15/18 at 10:18; Status DC Acetaminophen (Tylenol) 325 mg STK-MED ONCE PO ; Start 02/15/18 at 10:11; Stop 02/15/18 at 10:12; Status DC Acetaminophen (Tylenol) 650 mg PRN Q6HRS PRN PO PAIN / TEMP Last administered on 02/15/18at 10:24; Start 02/15/18 at 10:30 Active Scripts Active Albuterol Sulfate Conc Neb Soln (Albuterol Sulfate) 2.5 Mg/0.5 Ml Vial.neb 1 Vial NEB Q4HRS PRN Nexium Capsule (Esomeprazole Magnesium) 20 Mg Capsule.dr 1 Cap PO DAILY Duoneb 0.5-3(2.5) Mg/3 Ml (Albuterol/Ipratropium) 3 Ml Ampul.neb 3 Ml NEB RTQID Reported Aspir-Low (Aspirin) 81 Mg Tablet. 1 Tab PO DAILY Atorvastatin Calcium 40 Mg Tablet 1 Tab PO HS Vitals/I & O Vital Sign - Last 24 Hours 02/15/18 02/15/18 02/15/18 02/15/18 11:10 12:12 15:00 16:26 Temp 97.6 97.9 Pulse 68 83 Resp 17 26 B/P (MAP) 113/47 (69) 136/62 (86) Pulse Ox 97 99 99 97 O2 Delivery Nasal Cannula Nasal Cannula Nasal Cannula Nasal Cannula O2 Flow Rate 3.0 2.0 2.0 3.0 02/15/18 02/15/18 02/15/18 02/15/18 18:51 19:14 19:45 20:12 Temp 97.7 Pulse 73 78 Resp 19 18 B/P (MAP) 151/62 (91) 146/56 (86) Pulse Ox 99 99 O2 Delivery Nasal Cannula Nasal Cannula Nasal Cannula O2 Flow Rate 2.0 2.0 2.0 02/15/18 02/15/18 02/15/18 02/15/18 21:19 21:31 22:12 23:14 Pulse 63 72 72 Resp 17 16 17 B/P (MAP) 146/70 (95) 142/64 (90) 137/60 (85) Pulse Ox 98 97 97 98 O2 Delivery Nasal Cannula Nasal Cannula Nasal Cannula Nasal Cannula O2 Flow Rate 2.0 3.0 2.0 2.0 02/16/18 02/16/18 02/16/18 02/16/18 00:15 01:14 02:23 03:13 Pulse 77 77 78 73 Resp 18 22 18 20 B/P (MAP) 142/60 (87) 154/81 (105) 155/62 (93) 151/61 (91) Pulse Ox 98 97 98 97 O2 Delivery Nasal Cannula Nasal Cannula Nasal Cannula Nasal Cannula O2 Flow Rate 2.0 2.0 2.0 2.0 02/16/18 02/16/18 02/16/18 02/16/18 04:27 05:22 05:29 06:35 Temp 97.7 Pulse 85 74 66 Resp B/P (MAP) 146/67 (93) 135/60 (85) 149/59 (89) Pulse Ox 96 97 97 98 O2 Delivery Nasal Cannula Nasal Cannula Nasal Cannula Nasal Cannula O2 Flow Rate 2.0 2.0 3.0 2.0 02/16/18 02/16/18 08:30 08:30 Pulse 86 86 B/P (MAP) 148/72 148/72 Intake and Output 02/15/18 02/15/18 02/16/18 15:00 23:00 07:00 Intake Total 1690 ml 763 ml 797 ml Output Total 2100 ml Balance 1690 ml -1337 ml 797 ml MARISSA ROBERTS [employer] February 16, 2018 09:10
[2018-02-16 09:28] LABS: BASO % 0 % (0-3); EOS % 0 % (0-3); HEMATOCRIT 38.5 % (36.0-47.0); HEMOGLOBIN 12.9 g/dL (12.0-15.5); LYMPH # 0.8 x10^3/uL (1.0-4.8); LYMPH % 5 % (24-48); MEAN CORPUSCULAR HEMOGLOBIN 31 pg (25-35); MEAN CORPUSCULAR HGB CONC 34 g/dL (31-37); MEAN CORPUSCULAR VOLUME 92 fL (79-100); MONO # 0.8 x10^3/uL (0.0-1.1); MONO % 4 % (0-9); NEUT # 16.1 x10^3uL (1.8-7.7); NEUT % 91 % (31-73); PLATELET COUNT 271 x10^3/uL (140-400); RED BLOOD COUNT 4.19 x10^6/uL (3.50-5.40); RED CELL DISTRIBUTION WIDTH 14.3 % (11.5-14.5); WHITE BLOOD COUNT 17.7 x10^3/uL (4.0-11.0)
--- NOTE | 2018-02-16 09:48 | RAD ---
INDICATION: Pneumonia. TECHNIQUE: Upright portable chest radiograph was obtained. Comparison is from 3 days earlier. FINDINGS: There is interstitial prominence. Some of this may be related to emphysema or scarring. Superimposed interstitial pneumonia is hard to exclude, with a lower lobe predominance. Atypical infection should be considered. Please see recent CT chest. Findings are probably unchanged from prior study. The heart is not enlarged. There is no heart failure. There are degenerative changes in the shoulders. Leads overlie the patient. IMPRESSION: Persistent interstitial prominence, some of this may be chronic although a superimposed interstitial pneumonia is suspected given appearance on recent CT. Electronically signed by: Brandon Yanez MD (02/16/2018 9:45 AM) [facility]
[2018-02-16] MEDS: ACETAMINOPHEN 325 MG TABLET PO PRN ×2 (10:16→16:12)
[2018-02-16] MEDS ORDERED: PIP/TAZO PER PHARMACY MC PRN (12:00)
[2018-02-16] MEDS ORDERED: VANCOMYCIN PER PHARMACY MC PRN (12:00)
[2018-02-16] MEDS ORDERED: VANCOMYCIN 2 GM in IV NORMAL SALINE 500ML 500 ML IV ONE (13:00)
--- NOTE | 2018-02-16 13:23 | RAD ---
CT of the abdomen and pelvis with contrast 02/16/2018 INDICATION: Right-sided abdominal pain. COMPARISON STUDY: CT angiography of the chest February 12, 2018. CT the abdomen and pelvis with IV and oral contrast November 01, 2014. TECHNIQUE: Multidetector CT imaging of the abdomen and pelvis was performed following the administration of intravenous contrast. FINDINGS: Limited visualization of the bilateral lung bases demonstrates mild dependent atelectasis. Motion artifact is seen throughout the abdomen somewhat limiting exam. Prior cholecystectomy is noted. Liver is otherwise grossly unremarkable. Motion artifact limits evaluation of the pancreas. No gross abnormality is identified. The spleen is grossly unremarkable. The adrenal glands are within normal limits. Kidneys appear to be grossly normal. Motion artifact obscures portions of the right kidney. There is no evidence of bowel obstruction. Increased stool is noted in the distal colon. A Stern catheter is noted within a decompressed bladder. Hysterectomy noted. Descending and sigmoid colonic diverticulosis is noted. No gross evidence of acute diverticulitis is seen. The appendix is not visualized. Patient reports prior appendectomy. No significant free fluid or free air seen in the abdomen or pelvis. No acute osseous abnormalities are identified. IMPRESSION: 1. Exam mildly limited by motion. No evidence of acute intra-abdominal abnormality is identified. 2. Mildly increased colonic stool. Correlate with clinical evidence of constipation. 3. Distal colonic diverticulosis without evidence of diverticulitis. CT DOSING PQRS STATEMENT: One or more of the following individualized dose reduction techniques were utilized for this examination: 1. Automated exposure control 2. Adjustment of the mA and/or kV according to patient size 3. Use of iterative reconstruction technique Electronically signed by: Robert Pichardo MD (02/16/2018 1:19 PM) [facility]
[2018-02-16] MEDS ORDERED: SODIUM PHOSPHATES 19/7GM 133 ML ENEMA. PR ONE (14:45)
[2018-02-16] MEDS: PIPERACILLIN/TAZOBACTAM 3.375 GM in IV NORMAL SALINE 50ML 50 ML IV SCH ×2 (16:12→23:15)
[2018-02-16] MEDS: ZOLPIDEM 5 MG TABLET. PO PRN (20:51)
[2018-02-16] MEDS: ATORVASTATIN CALCIUM 20 MG TABLET PO SCH (20:51)
--- NOTE | 2018-02-16 23:45 | PN ---
DATE: SUBJECTIVE: A 72-year-old female. She is in the ICU with acute respiratory failure as well as pneumonia. The patient continues to make some progress, but is still extremely weak, and chest x-ray shows persistent interstitial prominence, some of maybe chronic, although superimposed interstitial pneumonia suspected given appearance on the recent CT. We have not been able to collect any of her sputum. The patient's white count still remains at 17,000. The patient did complain of some abdominal pain and I did find some tenderness in her right lower quadrant. A CT pelvis was ordered. At one time, the patient refused to have it done. I have encouraged the nurses to encourage her to have this done if this is the source of other problems for this individual. The patient is still very weak, still needs special attention. OBJECTIVE: VITAL SIGNS: The patient's blood pressure is 125/60, respiration 23, pulse 80-90, temperature afebrile, still on 3 liters of oxygen. GENERAL: The patient is an ill-appearing white female in moderate amount of distress. HEENT: The patient does not feel good. Mouth and throat were dry. Eyes are PERRL. NECK: Supple. LUNGS: Show diminished breath sounds, some rales noted in the bases. CARDIOVASCULAR: Regular sinus rhythm. ABDOMEN: Soft, diffuse tenderness primarily in the right lower quadrant with some mild guarding there, but no rebounding. Positive bowel sounds. EXTREMITIES: No clubbing, cyanosis, or edema. NEUROLOGIC: Otherwise, intact outside of having a depressed affect. This patient continues to be extremely ill. Her white count still 17,000. Even though her vital signs outside of her pulse rate look fairly good, there is still something more going on here. We will get the CT scan. Her chest x-ray still shows the pneumonic process going on. She is on Solu-Medrol twice daily as well as Rocephin 2 grams and levothyroxine, may change to a different combination of IV antibiotic therapy when she goes to [facility]. She will need continued care as this patient has a high risk of returning back for complications. IMPRESSION: Therefore, sepsis, acute respiratory failure, acute pneumonia, community acquired, history of chronic obstructive pulmonary disease, acute exacerbation of chronic obstructive pulmonary disease, elevated troponins, elevated lactic acid, right lower quadrant abdominal pain, leukocytosis and tdjyepdh-au-kxpkaf protein malnutrition. PLAN: As above. Continue aggressive pulmonary toilet, IV antibiotic therapy, may change regimen there to see if that produces any further results and get the CT scan of the abdomen and pelvis. CORINNA DIANE MD DR: BRADY/olivia JOB#: [id number] / [id number]
[2018-02-17 01:03] VITALS: BP 139/56
[2018-02-17 04:27] VITALS: BP 146/71
[2018-02-17] MEDS: MORPHINE SULFATE 4 MG/ML DISP.SYRIN. IV PRN (05:40)
[2018-02-17] MEDS: PIPERACILLIN/TAZOBACTAM 3.375 GM in IV NORMAL SALINE 50ML 50 ML IV SCH ×2 (05:40→11:34)
[2018-02-17] MEDS: IPRATRPIUM/ALBUTEROL 0.5/2.5MG 3 ML NEBU. NEB SCH ×2 (05:57→09:17)
[2018-02-17 06:14] VITALS: BP 146/72
[2018-02-17] MEDS: IV RINGERS SOLUTION,LACTATED 1,000 ML IV SCH (08:39)
[2018-02-17] MEDS: MAGNESIUM CHLORIDE ER 64 MG TABLET.ER PO SCH (08:40)
[2018-02-17] MEDS: ASPIRIN 81 MG TAB.CHEW PO SCH (08:40)
[2018-02-17] MEDS: METOPROLOL SUCC 24HR ER 25 MG TAB.ER.24H. PO SCH (08:40)
[2018-02-17] MEDS: PANTOPRAZOLE 40 MG TABLET. PO SCH (08:40)
[2018-02-17] MEDS: LACTOBACILLUS RHAMNOSUS GG 1 CAPSULE. PO SCH (08:40)
[2018-02-17] MEDS: amLODIPine BESYLATE 10 MG TABLET PO SCH (08:40)
[2018-02-17] MEDS: ENOXAPARIN 40 MG/0.4 ML SYRINGE. SQ SCH (08:42)
[2018-02-17] MEDS: ROFLUMILAST 500 MCG TABLET PO SCH (08:43)
[2018-02-17] MEDS ORDERED: methylPREDNISolone SOD SUCC PF 40 MG/ML VIAL. IV SCH (09:00)
[2018-02-17 12:05] VITALS: BP 141/61
[2018-02-17] MEDS ORDERED: NITR0.4T SL (12:54)
[2018-02-17] MEDS ORDERED: PIPE2.255 MC (12:54)
[2018-02-17] MEDS ORDERED: Magnesium Chloride Er PO (12:54)
[2018-02-17] MEDS ORDERED: VANC1.257 IV (12:54)
[2018-02-17] MEDS ORDERED: PRED1TAB PO (12:54)
[2018-02-17] MEDS ORDERED: ACET325T9 PO (12:54)
[2018-02-17] MEDS ORDERED: ROFL500T7 PO (12:54)
[2018-02-17] MEDS ORDERED: GUAI600T47 PO (12:54)
[2018-02-17] MEDS ORDERED: METO-239 PO (12:54)
[2018-02-17] MEDS ORDERED: AMLO10TA2 PO (12:54)
[2018-02-17] MEDS ORDERED: LACT1CAP19 PO (12:54)
[2018-02-17] MEDS ORDERED: VANCOMYCIN 1.25 GM in IV NORMAL SALINE 250ML 250 ML IV SCH (13:00)
--- NOTE | 2018-02-17 14:52 | DS ---
DATE OF DISCHARGE: 02/17/2018 HOSPITAL COURSE: This is a 72-year-old female who came in with significant sepsis, right lobe pneumonia and like. She apparently did have one ____. She was in acute respiratory failure as well although it did not look like on her blood gases, the patient was gasping for air and had a great deal of difficulty with this. The patient required oxygen, which she did not have in previous studies or before her hospitalization. Her pulse was over 135, her respiratory rate was up as high as 30. Pulse was also elevated as noted. In any case, the patient was given IV antibiotic therapy 2 gram of Rocephin IV, Levaquin. She did not make very good progress. Repeat chest x-ray still showed the situation with her. Her CT scan was basically unremarkable. Repeat chest x-rays did show persistent interstitial prominence. She was changed over to vancomycin and Zosyn, which seemed to help her quite a bit. In any case, the patient made good progress. She was basically stable at the time of discharge being discharged to a skilled facility to continue her IV antibiotic therapy for another week. Her blood pressure also went up as high as 210/90 with a pulse of 100 that was finally brought down with oral antihypertensive medications. She was also seen by Cardiology for problems with possible chest pain. They ruled that out. In any case, the patient made excellent progress during the rest of her hospitalization including that of sepsis. Right lobe pneumonia, acute respiratory failure, acute pneumonia, community acquired, acute exacerbation of COPD, elevated troponins, elevated lactic acids, sefmjyay-pj-fravzj protein malnutrition, elevated blood sugars, hyperglycemia, elevated liver enzymes. The patient will be discharged home. Follow up as an outpatient. She will be taken to a skilled facility. Continue IV antibiotic therapy. Continue physical therapy. See EMRAD and activity as tolerated by the institution, I believe she is going to the [facility]. CORINNA DIANE MD DR: BRADY/olivia JOB#: [id number] / [id number]
== END 2018-02-17 14:15 | DRG 871 ==
LOC: ER 22:19 → ICU 23:30 → UNDODISIN 02-15 18:10
PROVIDERS: ADMIT Family Medicine; ATTEND Family Medicine
PROC: 05HY33Z Insertion of Infusion Device into Upper Vein, Percutaneous Approach (ICD-10-PCS; principal; 2018-02-16)
PROC: B54MZZA Ultrasonography of Right Upper Extremity Veins, Guidance (ICD-10-PCS; 2018-02-16)
DX: A41.9 Sepsis, unspecified organism (principal); J18.1 Lobar pneumonia, unspecified organism; J96.00 Acute respiratory failure, unspecified whether with hypoxia or hypercapnia; E43 Unspecified severe protein-calorie malnutrition; I11.0 Hypertensive heart disease with heart failure; E11.65 Type 2 diabetes mellitus with hyperglycemia; I50.32 Chronic diastolic (congestive) heart failure; J44.1 Chronic obstructive pulmonary disease with (acute) exacerbation; J44.0 Chronic obstructive pulmonary disease with (acute) lower respiratory infection; I25.10 Atherosclerotic heart disease of native coronary artery without angina pectoris; E78.5 Hyperlipidemia, unspecified; E87.6 Hypokalemia; F41.9 Anxiety disorder, unspecified; M19.90 Unspecified osteoarthritis, unspecified site; Z87.440 Personal history of urinary (tract) infections; Z86.73 Personal history of transient ischemic attack (TIA), and cerebral infarction without residual deficits; Z68.25 Body mass index [BMI] 25.0-25.9, adult; Z82.49 Family history of ischemic heart disease and other diseases of the circulatory system; Z90.49 Acquired absence of other specified parts of digestive tract; Z87.891 Personal history of nicotine dependence; Z99.81 Dependence on supplemental oxygen; Z88.8 Allergy status to other drugs, medicaments and biological substances; Z79.899 Other long term (current) drug therapy
CPT/HCPCS: 36415; 36569; 36600; 71045; 71275; 74176; 80048; 80053; 80076; 81001; 82553; 82803; 83605; 83690; 83735; 83880; 84443; 84484; 85007; 85025; 85379; 85610; 85730; 86738; 87040; 87449; 87641; 93005; 93970; 94640; 96361; 96374; 96375; 99292; J0360; J0456; J0696; J1650; J1940; J1956; J2270; J2543; J2920; J2930; J3370; J7040; J7120; J7613; J7620; Q9967; 97110; 97116; 97530; 99291-25

== ENCOUNTER 2018-03-30 09:11 | Inpatient (IN) | payer OTHER ==
[~2018-03-30] VITALS: Ht 165.1 cm; Wt 69.5 kg
[~2018-03-30 09:11] MED LIST changes: +ACET325T9 PO; +AMLO10TA2 PO; +GUAI600T47 PO; -IPRA3AMP NEB; +IPRA3AMP29 NEB; +LACT1CAP19 PO; +METO-239 PO; +Magnesium Chloride Er PO; +NITR0.4T SL; +PIPE2.255 MC; +PRED1TAB PO; +ROFL500T7 PO; +VANC1.257 IV
[2018-03-30] MEDS ORDERED: IV NORMAL SALINE 1,000ML 1,000 ML IV SCH (09:21)
--- NOTE | 2018-03-30 09:43 | EKG ---
[address] [address] Test Date: 2018-03-30 Test Time: 09:38:05 Pat Name: JHONATAN MODI Department: Room: Gender: F Box Maker: : 1945 Requested By: DENIA FLORES Order Number: [id number] Reading MD: Reynaldo Ann MD Measurements Intervals [place] Rate: 113 P: 90 DE: 160 QRS: 30 QRSD: 82 T: 56 QT: 332 QTc: 461 Interpretive Statements SINUS TACHYCARDIA Electronically Signed On 03-31-2018 12:58:53 CDT by Reynaldo Ann MD
[2018-03-30 10:10] LABS: BASO # 0.1 x10^3/uL (0.0-0.2); BASO % 1 % (0-3); EOS # 0.1 x10^3/uL (0.0-0.7); EOS % 1 % (0-3); HEMATOCRIT 37.2 % (36.0-47.0); HEMOGLOBIN 12.7 g/dL (12.0-15.5); LYMPH # 1.4 x10^3/uL (1.0-4.8); LYMPH % 14 % (24-48); MEAN CORPUSCULAR HEMOGLOBIN 31 pg (25-35); MEAN CORPUSCULAR HGB CONC 34 g/dL (31-37); MEAN CORPUSCULAR VOLUME 90 fL (79-100); MONO % 10 % (0-9); NEUT # 7.9 x10^3uL (1.8-7.7); NEUT % 76 % (31-73); PLATELET COUNT 293 x10^3/uL (140-400); RED BLOOD COUNT 4.15 x10^6/uL (3.50-5.40); RED CELL DISTRIBUTION WIDTH 14.2 % (11.5-14.5); WHITE BLOOD COUNT 10.4 x10^3/uL (4.0-11.0)
[2018-03-30 10:16] LABS: BACTERIA,URINE MANY /HPF (0-FEW); BILIRUBIN,URINE NEG (NEG); CLARITY,URINE CLOUDY; COLOR,URINE YELLOW; GLUCOSE,URINE NEG (NEG); NITRITE,URINE POS (NEG); RBC,URINE 0 /HPF (0-2); UROBILINOGEN,URINE 0.2 mg/dL (0.2 mg/dL)
[2018-03-30 10:17] LABS: HYALINE CASTS, URINE OCC /HPF
--- NOTE | 2018-03-30 10:22 | RAD ---
EXAM: Head CT without contrast. HISTORY: Weakness. TECHNIQUE: Computed tomographic images of the head were obtained without contrast. *One or more of the following individualized dose reduction techniques were utilized for this examination: 1. Automated exposure control. 2. Adjustment of the mA and/or kV according to patient size. 3. Use of iterative reconstruction technique. COMPARISON: None. FINDINGS: There is fkiq-vn-agazaozk ventricular enlargement, greater than expected for cerebral volume. There is decreased attenuation within the periventricular white matter. There is no mass effect or midline shift. There is no hemorrhage. No calvarial lesion is seen. The orbits and visualized paranasal sinuses and mastoid air cells are unremarkable. IMPRESSION: 1. Moderate ventricular enlargement. This is greater than expected for cerebral volume. Correlate for normal pressure hydrocephalus. 2. Decreased attenuation within the cerebral white matter, a nonspecific finding most commonly due to chronic small vessel disease. The possibility of superimposed hypodensity due to transependymal flow of cerebral spinal fluid in the setting of hydrocephalus is also suspected. 3. Note is made that MRI is more sensitive for acute infarction. Electronically signed by: Delores Tobias MD (03/30/2018 10:19 AM) [facility]
[2018-03-30 10:32] LABS: ALBUMIN 3.1 g/dL (3.4-5.0); ALBUMIN/GLOBULIN RATIO 0.8 (1.0-1.7); CALCIUM 8.8 mg/dL (8.5-10.1); CREATININE 1.1 mg/dL (0.6-1.0); GFR 48.7; POTASSIUM 3.1 mmol/L (3.5-5.1); TOTAL BILIRUBIN 0.5 mg/dL (0.2-1.0); TOTAL PROTEIN 6.9 g/dL (6.4-8.2)
[2018-03-30] MEDS ORDERED: cefTRIAXone IV Push 1 GM VIAL. IVP ONE (10:45)
[2018-03-30] MEDS: IV NORMAL SALINE 1,000ML 1,000 ML IV SCH ×2 (10:46→14:32)
--- NOTE | 2018-03-30 10:48 | PHYS DOC ---
Past History Past Medical History: Angina, Anxiety, Arthritis, CAD, CHF, COPD, CVA, Diabetes , Hypertension, UTI, Other Past Surgical History: Appendectomy Alcohol Use: None Drug Use: None Adult General Chief Complaint Chief Complaint: generalized weakness HPI HPI 72-year-old female patient with multiple medical problems was discharged from rehabilitation one week ago after hospitalization for sepsis and CVA and was not able to walk and go to the bathroom and had urine and bowel incontinence with generalized weakness. Patient's daughter in law states that she was not able to change her depends she was not able to go to the bathroom to urinate by herself. EMS reported patient was covered with a foul smell urine and stool and was at unkempt condition and environment. Patient is alert and oriented have arrival to ER and complaining of generalized weakness without chest pain, fever and chills, nausea and vomiting, abdominal pain. Review of Systems Review of Systems Constitutional: Denies fever or chills reports generalized weakness [] Eyes: Denies change in visual acuity, redness, or eye pain [] HENT: Denies nasal congestion or sore throat [] Respiratory: Denies cough or shortness of breath [] Cardiovascular: No additional information not addressed in HPI [] GI: Denies abdominal pain, nausea, vomiting, bloody stools or diarrhea [] : Denies dysuria or hematuria [] Musculoskeletal: Denies back pain or joint pain [] Integument: Denies rash or skin lesions [] Neurologic: Denies headache, focal weakness or sensory changes [] Endocrine: Denies polyuria or polydipsia [] All other systems were reviewed and found to be within normal limits, except as documented in this note. Current Medications Current Medications Current Medications Medications (Trade) Dose Ordered Sig/Edmond Start Time Stop Time Status Last Admin Dose Admin Ceftriaxone Sodium 1 gm/ Sodium Chloride 50 ml @ 100 mls/hr 1X ONCE 03/30/18 10:30 03/30/18 10:59 UNV Ceftriaxone Sodium (Rocephin) 1 gm 1X ONCE 03/30/18 10:45 03/30/18 10:46 Potassium Chloride (Klor-Con) 40 meq 1X ONCE 03/30/18 11:00 03/30/18 11:01 Sodium Chloride 1,000 ml @ 1,000 mls/hr Q1H 03/30/18 09:21 03/30/18 10:21 DC 03/30/18 09:54 1,000 MLS/HR Allergies Allergies Allergies Coded Allergies Type Severity Reaction Last Updated Verified ibuprofen Allergy Intermediate 01/23/18 Yes Physical Exam Physical Exam Constitutional: Well developed, well nourished, mild distress, non-toxic appearance, unkempt, strong smelling of urine and stool. [] HENT: Normocephalic, atraumatic, bilateral external ears normal, oropharynx dry , no oral exudates, nose normal. [] Eyes: PERRLA, EOMI, conjunctiva normal, no discharge. [] Neck: Normal range of motion, no tenderness, supple, no stridor. [] Cardiovascular:Heart rate regular rhythm, no murmur [] Lungs & Thorax: Bilateral breath sounds clear to auscultation [] Abdomen: Bowel sounds normal, soft, no tenderness, no masses, no pulsatile masses. [] Skin: Warm, dry, erythema and inflammation of genital and rectal area Back: No tenderness, no CVA tenderness. [] Extremities: No tenderness, no cyanosis, no clubbing, ROM intact, no edema. [] Neurologic: Alert and oriented X 3, normal motor function, normal sensory function, no focal deficits noted. [] Psychologic: Affect normal, judgement normal, mood normal. [] Current Patient Data Vital Signs Vital Signs Date Time Temp Pulse Resp B/P (MAP) Pulse Ox O2 Delivery O2 Flow Rate FiO2 03/30/18 10:11 98.4 105 22 94 Room Air Lab Results Laboratory Tests Test 03/30/18 09:40 03/30/18 09:45 Urine Collection Type U cath Urine Color Yellow Urine Clarity Cloudy Urine pH 5.5 Urine Specific Colman 1.020 Urine Protein Trace (NEG-TRACE) Urine Glucose (UA) Neg mg/dL (NEG) Urine Ketones (Stick) Trace mg/dL (NEG) Urine Blood Neg (NEG) Urine Nitrite Pos (NEG) Urine Bilirubin Neg (NEG) Urine Urobilinogen Dipstick 0.2 mg/dL (0.2 mg/dL) Urine Leukocyte Esterase Small (NEG) Urine RBC 0 /HPF (0-2) Urine WBC 11-20 /HPF (0-4) Urine Squamous Epithelial Cells None /LPF Urine Bacteria Many /HPF (0-FEW) Urine Hyaline Casts Occ /HPF Urine Mucus Mod /LPF White Blood Count 10.4 x10^3/uL (4.0-11.0) Red Blood Count 4.15 x10^6/uL (3.50-5.40) Hemoglobin 12.7 g/dL (12.0-15.5) Hematocrit 37.2 % (36.0-47.0) Mean Corpuscular Volume 90 fL (79-100) Mean Corpuscular Hemoglobin 31 pg (25-35) Mean Corpuscular Hemoglobin Concent 34 g/dL (31-37) Red Cell Distribution Width 14.2 % (11.5-14.5) Platelet Count 293 x10^3/uL (140-400) Neutrophils (%) (Auto) 76 % (31-73) H Lymphocytes (%) (Auto) 14 % (24-48) L Monocytes (%) (Auto) 10 % (0-9) H Eosinophils (%) (Auto) 1 % (0-3) Basophils (%) (Auto) 1 % (0-3) Neutrophils # (Auto) 7.9 x10^3uL (1.8-7.7) H Lymphocytes # (Auto) 1.4 x10^3/uL (1.0-4.8) Monocytes # (Auto) 1.0 x10^3/uL (0.0-1.1) Eosinophils # (Auto) 0.1 x10^3/uL (0.0-0.7) Basophils # (Auto) 0.1 x10^3/uL (0.0-0.2) Prothrombin Time 10.8 SEC (9.4-11.4) Prothrombin Time INR 1.1 (0.9-1.1) Sodium Level 139 mmol/L (136-145) Potassium Level 3.1 mmol/L (3.5-5.1) L Chloride Level 100 mmol/L (98-107) Carbon Dioxide Level 30 mmol/L (21-32) Anion Gap 9 (6-14) Blood Urea Nitrogen 7 mg/dL (7-20) Creatinine 1.1 mg/dL (0.6-1.0) H Estimated GFR (Cockcroft-Gault) 48.7 BUN/Creatinine Ratio 6 (6-20) Glucose Level 120 mg/dL (70-99) H Lactic Acid Level 2.1 mmol/L (0.4-2.0) H Calcium Level 8.8 mg/dL (8.5-10.1) Total Bilirubin 0.5 mg/dL (0.2-1.0) Aspartate Amino Transferase (AST) 25 U/L (15-37) Alanine Aminotransferase (ALT) 17 U/L (14-59) Alkaline Phosphatase 107 U/L (46-116) Creatine Kinase 307 U/L (26-192) H Creatine Kinase MB (Mass) 0.7 ng/mL (0.0-3.6) Creatine Kinase MB Relative Index 0.2 % (0-4) Troponin I Quantitative < 0.017 ng/mL (0-0.055) Total Protein 6.9 g/dL (6.4-8.2) Albumin 3.1 g/dL (3.4-5.0) L Albumin/Globulin Ratio 0.8 (1.0-1.7) L Lipase 154 U/L (73-393) EKG EKG EKG interpreted by me. EKG at 0 938 showed sinus tachycardia at rate of 113, no acute ST and T-wave abnormalities[] Radiology/Procedures Radiology/Procedures [[place] [address] IMAGING REPORT Signed PATIENT: JHONATAN MODI ACCOUNT: [id number] : 1945 LOCATION: ER AGE: 72 SEX: F EXAM STATUS: PRE ER ORD. PHYSICIAN: DENIA FLORES MD REASON: weakness PROCEDURE: CT HEAD WO CONTRAST EXAM: Head CT without contrast. HISTORY: Weakness. TECHNIQUE: Computed tomographic images of the head were obtained without contrast. *One or more of the following individualized dose reduction techniques were utilized for this examination: 1. Automated exposure control. 2. Adjustment of the mA and/or kV according to patient size. 3. Use of iterative reconstruction technique. COMPARISON: None. FINDINGS: There is pnko-qx-vlawgccv ventricular enlargement, greater than expected for cerebral volume. There is decreased attenuation within the periventricular white matter. There is no mass effect or midline shift. There is no hemorrhage. No calvarial lesion is seen. The orbits and visualized paranasal sinuses and mastoid air cells are unremarkable. IMPRESSION: 1. Moderate ventricular enlargement. This is greater than expected for cerebral volume. Correlate for normal pressure hydrocephalus. 2. Decreased attenuation within the cerebral white matter, a nonspecific finding most commonly due to chronic small vessel disease. The possibility of superimposed hypodensity due to transependymal flow of cerebral spinal fluid in the setting of hydrocephalus is also suspected. 3. Note is made that MRI is more sensitive for acute infarction. Electronically signed by: Delores Kaye MD (03/30/2018 10:19 AM) [facility] DICTATED AND SIGNED BY: DELORES KAYE MD DATE: 03/30/18 1017 CC: CORINNA DIANE MD; DENIA FLORES MD ~ ] Course & Med Decision Making Course & Med Decision Making Pertinent Labs and Imaging studies reviewed. (See chart for details) Evaluation of patient in ER showed 72-year-old female patient discharged from rehabilitation recently and had urine and bowel incontinence with unclean home and condition. Patient had a fall 7 of urine and stool without neuro deficit. Labs showed UTI and hypokalemia. Lactic acid was 2.1 and patient treated with IV fluid and antibiotic and oral potassium and felt better. Dr. Paez accepted admission at 1037 with consideration of long time snf placement. Dragon Disclaimer Dragon Disclaimer This electronic medical record was generated, in whole or in part, using a voice recognition dictation system. Departure Departure: Impression: Primary Impression: Generalized weakness Additional Impressions: Urinary tract infection Sepsis Pressure sore Hypokalemia Mobility impaired Disposition: ADMITTED INPATIENT (At 1037) Admitting Physician: Sidney Paez Referrals: CORINNA DIANE MD (PCP) Problem Qualifiers DENIA FLORES MD Mar 30, 2018 10:47
[2018-03-30] MEDS ORDERED: POTASSIUM CHLORIDE 20 MEQ TABLET.ER. PO ONE (11:00)
[2018-03-30 11:39] VITALS: BP 131/79
[2018-03-30] MEDS ORDERED: NITROGLYCERIN SUBLINGUAL 0.4 MG BOTTLE OF 25. SL PRN (11:45)
[2018-03-30] MEDS ORDERED: ALBUTEROL SULFATE 2.5 MG/3 ML NEBU. NEB PRN (11:45)
[2018-03-30] MEDS ORDERED: ACETAMINOPHEN 325 MG TABLET PO PRN (11:45)
[2018-03-30] MEDS: IPRATRPIUM/ALBUTEROL 0.5/2.5MG 3 ML NEBU. NEB SCH ×3 (12:00→20:24)
[2018-03-30 14:36] VITALS: BP 146/66
--- NOTE | 2018-03-30 18:07 | NUR ---
NURSING ADMIT NOTE: Patient arrived to room 124 via cart and accompanied by EMS personnel. Patient oriented to room, bathroom, call light, and TV remote.
[2018-03-30 19:10] VITALS: BP 106/61
[2018-03-30] MEDS: ATORVASTATIN CALCIUM 20 MG TABLET PO SCH (21:41)
[2018-03-30] MEDS: LACTOBACILLUS RHAMNOSUS GG 1 CAPSULE. PO SCH (21:41)
[2018-03-30] MEDS: HEPARIN PF for SUB-Q USE 5,000 UNIT/0.5 ML VIAL. SQ SCH (22:19)
[2018-03-30 22:55] VITALS: BP 123/79
--- NOTE | 2018-03-31 04:36 | NUR ---
Stern was discontinued due to not meeting criteria. PT cleaned, changed. PT tolerated removal well. Output recorded.
[2018-03-31 05:13] VITALS: BP 117/71
[2018-03-31] MEDS: IPRATRPIUM/ALBUTEROL 0.5/2.5MG 3 ML NEBU. NEB SCH ×4 (05:44→20:59)
[2018-03-31] MEDS: IV NORMAL SALINE 1,000ML 1,000 ML IV SCH (06:18)
[2018-03-31] MEDS: HEPARIN PF for SUB-Q USE 5,000 UNIT/0.5 ML VIAL. SQ SCH ×3 (06:19→22:12)
[2018-03-31 06:26] LABS: BASO # 0.1 x10^3/uL (0.0-0.2); BASO % 1 % (0-3); EOS # 0.3 x10^3/uL (0.0-0.7); EOS % 3 % (0-3); HEMATOCRIT 30.8 % (36.0-47.0); HEMOGLOBIN 10.3 g/dL (12.0-15.5); LYMPH # 2.2 x10^3/uL (1.0-4.8); LYMPH % 28 % (24-48); MEAN CORPUSCULAR HEMOGLOBIN 31 pg (25-35); MEAN CORPUSCULAR HGB CONC 33 g/dL (31-37); MEAN CORPUSCULAR VOLUME 92 fL (79-100); MONO # 0.8 x10^3/uL (0.0-1.1); MONO % 10 % (0-9); NEUT # 4.6 x10^3uL (1.8-7.7); NEUT % 58 % (31-73); PLATELET COUNT 223 x10^3/uL (140-400); RED BLOOD COUNT 3.35 x10^6/uL (3.50-5.40); RED CELL DISTRIBUTION WIDTH 14.7 % (11.5-14.5)
[2018-03-31 06:27] LABS: CALCIUM 7.9 mg/dL (8.5-10.1); CREATININE 0.9 mg/dL (0.6-1.0); GFR 61.4; POTASSIUM 3.5 mmol/L (3.5-5.1)
[2018-03-31] MEDS: ASPIRIN ENTERIC COATED 81 MG TABLET.DR. PO SCH (07:49)
[2018-03-31] MEDS: PANTOPRAZOLE 40 MG TABLET. PO SCH (07:49)
[2018-03-31] MEDS ORDERED: ALBUTEROL SULFATE 2.5 MG/3 ML NEBU. NEB PRN (09:00)
[2018-03-31] MEDS ORDERED: SOD CHLORIDE IV SCH (09:00)
[2018-03-31] MEDS ORDERED: VANCOMYCIN IV SCH (09:00)
[2018-03-31] MEDS ORDERED: [UNRECOGNIZED DRUG - OTHER] IV SCH (09:00)
[2018-03-31] MEDS: LACTOBACILLUS RHAMNOSUS GG 1 CAPSULE. PO SCH ×2 (09:50→21:41)
[2018-03-31] MEDS: MAGNESIUM CHLORIDE ER 64 MG TABLET.ER PO SCH (09:50)
[2018-03-31] MEDS: ROFLUMILAST 500 MCG TABLET PO SCH (09:50)
[2018-03-31] MEDS: amLODIPine BESYLATE 10 MG TABLET PO SCH (09:51)
[2018-03-31] MEDS: predniSONE 5 MG TABLET PO SCH (09:51)
[2018-03-31] MEDS: METOPROLOL SUCC 24HR ER 25 MG TAB.ER.24H. PO SCH (09:51)
--- NOTE | 2018-03-31 10:51 | RAD ---
Chest, PA and Lateral: Technique: PA and lateral views of the chest were obtained. History: Sepsis. Comparison: 02/16/2018. Findings: The heart and pulmonary vasculature appear within normal limits. The lungs are clear. The pleural margins are clear. Impression: No acute chest process is seen. Electronically signed by: Darci Danielson MD (03/31/2018 10:48 AM) [id number]
[2018-03-31 11:08] VITALS: BP 105/65
[2018-03-31] MEDS: cefTRIAXone IV Push 1 GM VIAL. IVP SCH (11:17)
[2018-03-31 15:00] VITALS: BP 102/63
--- NOTE | 2018-03-31 16:24 | NUR ---
Wound Care Wound care consult for excoriation to buttocks and labia. Pt has IAD from being continuously wet/soiled. Cleansed breanne-area and applied calazime cream, recommend A&D ointment to be applied BID, KYLE[address] Way will call Dr Salinas to obtain order. Educated pt to call nurse as soon as she knows she is wet to prevent further excoriation. No other wounds found on full skin inspection. Pt left on her back with heels floated for dinner. WC will continue to follow for possible changes.
--- NOTE | 2018-03-31 18:35 | PDOC ---
Exam Note: Tee Note: Please also refer to the separate dictated note~for this date of service dictated separately.~Patient seen individually. Discussed the patient with Nursing staff reviewed the chart.~Reviewed interim history and current functioning. Reviewed vital signs,~Labs/ Radiology~and current medications noted below. Continue current treatment with the changes noted in the dictated addendum note Assessment: Vital Signs: Vital Signs Date Time Temp Pulse Resp B/P (MAP) Pulse Ox O2 Delivery O2 Flow Rate FiO2 03/31/18 17:20 99 Nasal Cannula 3.0 03/31/18 15:00 97.6 85 20 102/63 (76) I&O Intake and Output 03/31/18 07:00 Intake Total 1518 ml Output Total 600 ml Balance 918 ml Intake Oral 750 ml IV Total 768 ml Output Urine Total 600 ml Labs: Laboratory Tests Test 03/31/18 06:08 White Blood Count 8.0 x10^3/uL (4.0-11.0) Red Blood Count 3.35 x10^6/uL (3.50-5.40) L Hemoglobin 10.3 g/dL (12.0-15.5) L Hematocrit 30.8 % (36.0-47.0) L Mean Corpuscular Volume 92 fL (79-100) Mean Corpuscular Hemoglobin 31 pg (25-35) Mean Corpuscular Hemoglobin Concent 33 g/dL (31-37) Red Cell Distribution Width 14.7 % (11.5-14.5) H Platelet Count 223 x10^3/uL (140-400) Neutrophils (%) (Auto) 58 % (31-73) Lymphocytes (%) (Auto) 28 % (24-48) Monocytes (%) (Auto) 10 % (0-9) H Eosinophils (%) (Auto) 3 % (0-3) Basophils (%) (Auto) 1 % (0-3) Neutrophils # (Auto) 4.6 x10^3uL (1.8-7.7) Lymphocytes # (Auto) 2.2 x10^3/uL (1.0-4.8) Monocytes # (Auto) 0.8 x10^3/uL (0.0-1.1) Eosinophils # (Auto) 0.3 x10^3/uL (0.0-0.7) Basophils # (Auto) 0.1 x10^3/uL (0.0-0.2) Sodium Level 143 mmol/L (136-145) Potassium Level 3.5 mmol/L (3.5-5.1) Chloride Level 109 mmol/L (98-107) H Carbon Dioxide Level 27 mmol/L (21-32) Anion Gap 7 (6-14) Blood Urea Nitrogen 5 mg/dL (7-20) L Creatinine 0.9 mg/dL (0.6-1.0) Estimated GFR (Cockcroft-Gault) 61.4 Glucose Level 101 mg/dL (70-99) H Calcium Level 7.9 mg/dL (8.5-10.1) #L Current Medications: Meds: Current Medications Sodium Chloride 1,000 ml @ 1,000 mls/hr Q1H IV Last administered on 03/30/18at 09:54; Start 03/30/18 at 09:21; Stop 03/30/18 at 10:21; Status DC Ceftriaxone Sodium 1 gm/ Sodium Chloride 50 ml @ 100 mls/hr 1X ONCE IV ; Start 03/30/18 at 10:30; Stop 03/30/18 at 10:59; Status UNV Ceftriaxone Sodium (Rocephin) 1 gm 1X ONCE IVP Last administered on 03/30/18at 10:47; Start 03/30/18 at 10:45; Stop 03/30/18 at 10:46; Status DC Potassium Chloride (Klor-Con) 40 meq 1X ONCE PO Last administered on 03/30/18at 10:49; Start 03/30/18 at 11:00; Stop 03/30/18 at 11:01; Status DC Sodium Chloride 1,000 ml @ 75 mls/hr [id number] IV Last administered on 03/31/18at 06:18; Start 03/30/18 at 10:38; Stop 03/31/18 at 10:37; Status DC Ceftriaxone Sodium 1 gm/ Sodium Chloride 50 ml @ 100 mls/hr Q24H IV ; Start 03/30/18 at 11:45; Stop 03/30/18 at 12:07; Status DC Acetaminophen (Tylenol) 650 mg PRN Q6HRS PRN PO PAIN / TEMP; Start 03/30/18 at 11:45 Guaifenesin (Mucinex Er) 600 mg BID PO Last administered on 03/31/18 09:50; Start 03/30/18 at 21:00 Albuterol/ Ipratropium (Duoneb) 3 ml RTQID NEB Last administered on 03/31/18 17 :20; Start 03/30/18 at 12:00 Lactobacillus Rhamnosus (Culturelle) 1 cap BID PO Last administered on 09:50; Start 03/30/18 at 21:00 Metoprolol Succinate (Toprol Xl) 25 mg DAILY PO Last administered on 03/31/18 09:51; Start 03/31/18 at 09:00 Nitroglycerin (Nitrostat) 0.4 mg PRN Q5MIN PRN SL CHEST PAIN; Start 03/30/18 at 11:45 Prednisone (Prednisone) 5 mg DAILY PO Last administered on 03/31/18 09:51; Start 03/31/18 at 09:00 Albuterol Sulfate (Ventolin) 1 mg Q4HRS PRN NEB SHORTNESS OF BREATH; Start 03/30 at 11:45; Stop 03/31/18 at 08:57; Status DC Amlodipine Besylate (Norvasc) 10 mg DAILY PO Last administered on 03/31/18 09: 51; Start 03/31/18 at 09:00 Aspirin (Aspirin Enteric Coated) 81 mg DAILYWBKFT PO Last administered on at 07:49; Start 03/31/18 at 08:00 Atorvastatin Calcium (Lipitor) 40 mg QHS PO Last administered on 03/30/18at 21:41 ; Start 03/30/18 at 21:00 Pantoprazole Sodium (Protonix) 40 mg DAILYAC PO Last administered on 03/31/18 07:49; Start 03/31/18 at 07:30 Roflumilast (Daliresp) 500 mcg DAILY PO Last administered on 03/31/18 09:50; Start 03/31/18 at 09:00 Non-Formulary Medication (Vancomycin/0.9 % Sod Chloride (Vanco 1.25 gm/ 250 ml- 0.9% NaCl)) 1.25 gm DAILY IV ; Start 03/31/18 at 09:00; Stop 03/31/18 at 09:00; Status DC Magnesium Chloride (Mag Delay) 64 mg DAILY PO Last administered on 03/31/18at 09: 50; Start 03/31/18 at 09:00 Ceftriaxone Sodium (Rocephin) 1 gm Q24H IVP Last administered on 03/31/18at 11:17 ; Start 03/31/18 at 11:00 Heparin Sodium (Porcine) (Heparin Sq) 5,000 unit Q8HRS SQ Last administered on 03/31/18at 14:27; Start 03/30/18 at 22:00 Albuterol Sulfate (Ventolin) 2.5 mg PRN Q4HRS PRN NEB SHORTNESS OF BREATH; Start 03/31/18 at 09:00 Active Scripts Active Prednisone 1 Mg Tablet 5 Mg PO DAILY Take 4 tablets daily and decrease by 1 tablet every 3rd day Nitrostat (Nitroglycerin) 0.4 Mg Tab.subl 0.4 Mg SL PRN Q5MIN PRN Metoprolol Succinate ( Xl ) (Metoprolol Succinate) 25 Mg Tab.er.24h 25 Mg PO DAILY Amlodipine Besylate 10 Mg Tablet 10 Mg PO DAILY Tylenol (Acetaminophen) 325 Mg Tablet 650 Mg PO PRN Q6HRS PRN [Magnesium Chloride Er] 64 MG Tablet.er 64 Mg PO DAILY Mucinex (Guaifenesin) 600 Mg Tablet.er 600 Mg PO BID Daliresp (Roflumilast) 500 Mcg Tablet 500 Mcg PO DAILY Culturelle (Lactobacillus Rhamnosus Gg) 1 Each Cap.sprink 1 Cap PO BID 7 Days Vanco 1.25 gm/250 ml-0.9% NaCl (Vancomycin/0.9 % Sod Chloride) 1.25 Gm/250 Ml Plast..bag 1.25 Gm IV DAILY Zosyn 2.25 Gram Vial (Piperacillin Sodium/Tazobactam) 2.25 Gm Vial 1 Each MC PRN DAILY PRN 7 Days Albuterol Sulfate Conc Neb Soln (Albuterol Sulfate) 2.5 Mg/0.5 Ml Vial.neb 1 Vial NEB Q4HRS PRN Nexium Capsule (Esomeprazole Magnesium) 20 Mg Capsule.dr 1 Cap PO DAILY Duoneb 0.5-3(2.5) Mg/3 Ml (Albuterol/Ipratropium) 3 Ml Ampul.neb 3 Ml NEB RTQID Reported Aspir-Low (Aspirin) 81 Mg Tablet.dr 1 Tab PO DAILY Atorvastatin Calcium 40 Mg Tablet 1 Tab PO HS I have reviewed the current psychotropics carefully including drug interactions. Risk benefit ratio favors no change other than as noted in my dictated progress note. Diagnosis: Problems: (1) Anxiety disorder (2) Impulse control disorder (3) Major depressive disorder, recurrent episode (4) Dementia, vascular, with depression (5) Urinary tract infection MICHAEL GALLEGOS MD Mar 31, 2018 18:35
[2018-03-31] MEDS ORDERED: VITS A & D/LANOLIN TOPICAL OINTMENT 56GM TUBE. TP PRN (19:00)
[2018-03-31 19:50] VITALS: BP 97/58
--- NOTE | 2018-03-31 20:14 | HP ---
ADMIT DATE: 03/30/2018 HISTORY OF PRESENT ILLNESS: The patient came in through the Emergency Room, was discharged from rehab for possible sepsis and possible stroke. She was going to the bathroom. She became increasingly bowel incontinent with generalized weakness. The patient noted that she began to urinate on herself. EMS reported a foul smell of urine and stool and kept conditioned environment. The patient had generalized weakness without chest pain. The patient was admitted to the hospital for further evaluation and treatment thereof of these multiple medical problems. PAST MEDICAL HISTORY: Cataract, tonsillitis, history of stroke, hypertension, COPD, pneumonia, cholecystectomy, appendectomy, heartburn, GERD, hysterectomy, urinary tract infection, depression and also degenerative arthritis. SOCIAL HISTORY: The patient is smoking, quit smoking approximately 3 years ago. IMMUNIZATIONS: Are up-to-date. FAMILY HISTORY: Father of cancer in his 50s or 60s, adverse effect ibuprofen. MEDICATIONS: The patient's medications include that of DuoNeb treatments, Lipitor 40, nitroglycerin, metoprolol succinate, amlodipine, aspirin 81, guaifenesin 600, Daliresp 500 mcg, Nexium 40, and prednisone 5 mg daily, magnesium sulfate. REVIEW OF SYSTEMS: As noted. The patient has generalized weakness with nausea, urinary and fecal incontinence. Denies abdominal pain. Denies any melena, hematochezia, or hematemesis and neurologically baseline for her. PHYSICAL EXAMINATION: GENERAL: The patient otherwise on examination is a pleasant white female, in moderate amount of distress. VITAL SIGNS: Blood pressure 110/60, respiratory rate 28, pulse 105, temperature afebrile. HEENT: The patient's head was atraumatic, normocephalic. Eyes: PERRLA without jaundice. The mouth and throat were normal. NECK: Supple, no JVD or thyromegaly. LUNGS: Were diminished throughout, poor movement of air. CARDIOVASCULAR: Regular sinus rhythm, S1, S2, without murmur, rub, thrill, or extra heart sounds. ABDOMEN: The patient's abdomen was soft, nontender. EXTREMITIES: No clubbing, cyanosis, no edema. NEUROLOGIC: Intact. IMPRESSION: Sepsis, generalized weakness, change in mental status, anxiety disorder; major depressive disorder, recurrent episode, urinary tract infection, anemia of chronic disease. PLAN: The patient will be admitted, placed on IV antibiotic therapy. Consult with Dr. Bautista and make further evaluation on her as indicated. CORINNA DIANE MD DR: BRADY/olivia JOB#: [id number] / [id number]
[2018-03-31] MEDS: ATORVASTATIN CALCIUM 20 MG TABLET PO SCH (21:41)
[2018-03-31 23:34] VITALS: BP 115/64
[2018-04-01] MEDS: IPRATRPIUM/ALBUTEROL 0.5/2.5MG 3 ML NEBU. NEB SCH ×4 (05:26→20:34)
[2018-04-01 05:32] VITALS: BP 106/57
[2018-04-01] MEDS: HEPARIN PF for SUB-Q USE 5,000 UNIT/0.5 ML VIAL. SQ SCH ×3 (05:50→20:46)
[2018-04-01 08:52] LABS: BASO # 0.1 x10^3/uL (0.0-0.2); BASO % 1 % (0-3); EOS # 0.3 x10^3/uL (0.0-0.7); EOS % 3 % (0-3); HEMATOCRIT 29.2 % (36.0-47.0); HEMOGLOBIN 9.9 g/dL (12.0-15.5); LYMPH % 21 % (24-48); MEAN CORPUSCULAR HEMOGLOBIN 31 pg (25-35); MEAN CORPUSCULAR HGB CONC 34 g/dL (31-37); MEAN CORPUSCULAR VOLUME 92 fL (79-100); MONO # 0.6 x10^3/uL (0.0-1.1); MONO % 6 % (0-9); NEUT # 6.5 x10^3uL (1.8-7.7); NEUT % 69 % (31-73); PLATELET COUNT 236 x10^3/uL (140-400); RED BLOOD COUNT 3.19 x10^6/uL (3.50-5.40); WHITE BLOOD COUNT 9.4 x10^3/uL (4.0-11.0)
[2018-04-01 09:00] LABS: CALCIUM 7.9 mg/dL (8.5-10.1); CREATININE 0.9 mg/dL (0.6-1.0); GFR 61.4; POTASSIUM 3.3 mmol/L (3.5-5.1)
[2018-04-01] MEDS: PANTOPRAZOLE 40 MG TABLET. PO SCH (09:11)
[2018-04-01] MEDS: MAGNESIUM CHLORIDE ER 64 MG TABLET.ER PO SCH (09:12)
[2018-04-01] MEDS: ASPIRIN ENTERIC COATED 81 MG TABLET.DR. PO SCH (09:12)
[2018-04-01] MEDS: predniSONE 5 MG TABLET PO SCH (09:12)
[2018-04-01] MEDS: METOPROLOL SUCC 24HR ER 25 MG TAB.ER.24H. PO SCH (09:12)
[2018-04-01] MEDS: LACTOBACILLUS RHAMNOSUS GG 1 CAPSULE. PO SCH ×2 (09:12→20:45)
[2018-04-01] MEDS: amLODIPine BESYLATE 10 MG TABLET PO SCH (09:12)
[2018-04-01] MEDS: ROFLUMILAST 500 MCG TABLET PO SCH (09:12)
[2018-04-01 10:27] VITALS: BP 116/61
[2018-04-01] MEDS: CITALOPRAM 10 MG TABLET. PO SCH (10:43)
[2018-04-01] MEDS: buPROPion 75 MG TABLET PO SCH ×2 (10:43→20:45)
[2018-04-01] MEDS: POTASSIUM CHLORIDE 10 MEQ TABLET.ER. PO SCH (10:44)
--- NOTE | 2018-04-01 10:58 | NUR ---
Pt resting at this time. Took am meds without difficulty. Pt quiet this am with no complaints. Will monitor.
[2018-04-01] MEDS: cefTRIAXone IV Push 1 GM VIAL. IVP SCH (11:29)
[2018-04-01 16:47] VITALS: BP 106/61
[2018-04-01 19:00] VITALS: BP 107/51
--- NOTE | 2018-04-01 19:11 | PDOC ---
Exam Note: Tee Note: Please also refer to the separate dictated note~for this date of service dictated separately.~Patient seen individually. Discussed the patient with Nursing staff reviewed the chart.~Reviewed interim history and current functioning. Reviewed vital signs,~Labs/ Radiology~and current medications noted below. Continue current treatment with the changes noted in the dictated addendum note Assessment: Vital Signs: Vital Signs Date Time Temp Pulse Resp B/P (MAP) Pulse Ox O2 Delivery O2 Flow Rate FiO2 04/01/18 16:47 97.9 77 20 106/61 (76) 97 Nasal Cannula 2.0 I&O Intake and Output 04/01/18 07:00 Intake Total 1160 ml Output Total 100 ml Balance 1060 ml Intake Oral 1160 ml Output Urine Total 100 ml # Voids 4 # Bowel Movements 1 Labs: Laboratory Tests Test 04/01/18 08:45 White Blood Count 9.4 x10^3/uL (4.0-11.0) Red Blood Count 3.19 x10^6/uL (3.50-5.40) L Hemoglobin 9.9 g/dL (12.0-15.5) L Hematocrit 29.2 % (36.0-47.0) L Mean Corpuscular Volume 92 fL (79-100) Mean Corpuscular Hemoglobin 31 pg (25-35) Mean Corpuscular Hemoglobin Concent 34 g/dL (31-37) Red Cell Distribution Width 15.0 % (11.5-14.5) H Platelet Count 236 x10^3/uL (140-400) Neutrophils (%) (Auto) 69 % (31-73) Lymphocytes (%) (Auto) 21 % (24-48) L Monocytes (%) (Auto) 6 % (0-9) Eosinophils (%) (Auto) 3 % (0-3) Basophils (%) (Auto) 1 % (0-3) Neutrophils # (Auto) 6.5 x10^3uL (1.8-7.7) Lymphocytes # (Auto) 2.0 x10^3/uL (1.0-4.8) Monocytes # (Auto) 0.6 x10^3/uL (0.0-1.1) Eosinophils # (Auto) 0.3 x10^3/uL (0.0-0.7) Basophils # (Auto) 0.1 x10^3/uL (0.0-0.2) Sodium Level 143 mmol/L (136-145) Potassium Level 3.3 mmol/L (3.5-5.1) L Chloride Level 109 mmol/L (98-107) H Carbon Dioxide Level 30 mmol/L (21-32) Anion Gap 4 (6-14) L Blood Urea Nitrogen 4 mg/dL (7-20) L Creatinine 0.9 mg/dL (0.6-1.0) Estimated GFR (Cockcroft-Gault) 61.4 Glucose Level 127 mg/dL (70-99) H Calcium Level 7.9 mg/dL (8.5-10.1) L Current Medications: Meds: Current Medications Sodium Chloride 1,000 ml @ 1,000 mls/hr Q1H IV Last administered on 03/30/18at 09:54; Start 03/30/18 at 09:21; Stop 03/30/18 at 10:21; Status DC Ceftriaxone Sodium 1 gm/ Sodium Chloride 50 ml @ 100 mls/hr 1X ONCE IV ; Start 03/30/18 at 10:30; Stop 03/30/18 at 10:59; Status UNV Ceftriaxone Sodium (Rocephin) 1 gm 1X ONCE IVP Last administered on 03/30/18at 10:47; Start 03/30/18 at 10:45; Stop 03/30/18 at 10:46; Status DC Potassium Chloride (Klor-Con) 40 meq 1X ONCE PO Last administered on 03/30/18at 10:49; Start 03/30/18 at 11:00; Stop 03/30/18 at 11:01; Status DC Sodium Chloride 1,000 ml @ 75 mls/hr [id number] IV Last administered on 03/31/18at 06:18; Start 03/30/18 at 10:38; Stop 03/31/18 at 10:37; Status DC Ceftriaxone Sodium 1 gm/ Sodium Chloride 50 ml @ 100 mls/hr Q24H IV ; Start 03/30/18 at 11:45; Stop 03/30/18 at 12:07; Status DC Acetaminophen (Tylenol) 650 mg PRN Q6HRS PRN PO PAIN / TEMP Last administered on 04/01/18at 13:33; Start 03/30/18 at 11:45 Guaifenesin (Mucinex Er) 600 mg BID PO Last administered on 04/01/18 09:12; Start 03/30/18 at 21:00 Albuterol/ Ipratropium (Duoneb) 3 ml RTQID NEB Last administered on 04/01/18 16 :25; Start 03/30/18 at 12:00 Lactobacillus Rhamnosus (Culturelle) 1 cap BID PO Last administered on 09:12; Start 03/30/18 at 21:00 Metoprolol Succinate (Toprol Xl) 25 mg DAILY PO Last administered on 04/01/18 09:12; Start 03/31/18 at 09:00 Nitroglycerin (Nitrostat) 0.4 mg PRN Q5MIN PRN SL CHEST PAIN; Start 03/30/18 at 11:45 Prednisone (Prednisone) 5 mg DAILY PO Last administered on 04/01/18 09:12; Start 03/31/18 at 09:00 Albuterol Sulfate (Ventolin) 1 mg Q4HRS PRN NEB SHORTNESS OF BREATH; Start 03/30 at 11:45; Stop 03/31/18 at 08:57; Status DC Amlodipine Besylate (Norvasc) 10 mg DAILY PO Last administered on 04/01/18 09: 12; Start 03/31/18 at 09:00 Aspirin (Aspirin Enteric Coated) 81 mg DAILYWBKFT PO Last administered on 09:12; Start 03/31/18 at 08:00 Atorvastatin Calcium (Lipitor) 40 mg QHS PO Last administered on 03/31/18at 21:41 ; Start 03/30/18 at 21:00 Pantoprazole Sodium (Protonix) 40 mg DAILYAC PO Last administered on 04/01/18 09:11; Start 03/31/18 at 07:30 Roflumilast (Daliresp) 500 mcg DAILY PO Last administered on 04/01/18 09:12; Start 03/31/18 at 09:00 Non-Formulary Medication (Vancomycin/0.9 % Sod Chloride (Vanco 1.25 gm/ 250 ml- 0.9% NaCl)) 1.25 gm DAILY IV ; Start 03/31/18 at 09:00; Stop 03/31/18 at 09:00; Status DC Magnesium Chloride (Mag Delay) 64 mg DAILY PO Last administered on 04/01/18at 09: 12; Start 03/31/18 at 09:00 Ceftriaxone Sodium (Rocephin) 1 gm Q24H IVP Last administered on 04/01/18at 11:29 ; Start 03/31/18 at 11:00 Heparin Sodium (Porcine) (Heparin Sq) 5,000 unit Q8HRS SQ Last administered on 04/01/18at 13:35; Start 03/30/18 at 22:00 Albuterol Sulfate (Ventolin) 2.5 mg PRN Q4HRS PRN NEB SHORTNESS OF BREATH; Start 03/31/18 at 09:00 Vitamin A/Vitamin D (Vitamin A & D Ointment) 1 asher PRN BID PRN TP SKIN PROTECTION; Start 03/31/18 at 19:00 Citalopram Hydrobromide (CeleXA) 10 mg DAILY PO Last administered on 04/01/18at 10:43; Start 04/01/18 at 09:45 Bupropion HCl (Wellbutrin) 75 mg BID PO Last administered on 04/01/18at 10:43; Start 04/01/18 at 09:45 Potassium Chloride (Klor-Con) 10 meq DAILYWBKFT PO Last administered on at 10:44; Start 04/01/18 at 09:45 Pneumococcal Polyvalent Vaccine (Pneumovax 23) 0.5 ml ONCE ONCE VAX IM ; Start 04/02/18 at 09:00; Stop 04/02/18 at 09:01 Active Scripts Active Prednisone 1 Mg Tablet 5 Mg PO DAILY Take 4 tablets daily and decrease by 1 tablet every 3rd day Nitrostat (Nitroglycerin) 0.4 Mg Tab.subl 0.4 Mg SL PRN Q5MIN PRN Metoprolol Succinate ( Xl ) (Metoprolol Succinate) 25 Mg Tab.er.24h 25 Mg PO DAILY Amlodipine Besylate 10 Mg Tablet 10 Mg PO DAILY Tylenol (Acetaminophen) 325 Mg Tablet 650 Mg PO PRN Q6HRS PRN [Magnesium Chloride Er] 64 MG Tablet.er 64 Mg PO DAILY Mucinex (Guaifenesin) 600 Mg Tablet.er 600 Mg PO BID Daliresp (Roflumilast) 500 Mcg Tablet 500 Mcg PO DAILY Culturelle (Lactobacillus Rhamnosus Gg) 1 Each Cap.sprink 1 Cap PO BID 7 Days Vanco 1.25 gm/250 ml-0.9% NaCl (Vancomycin/0.9 % Sod Chloride) 1.25 Gm/250 Ml Plast..bag 1.25 Gm IV DAILY Zosyn 2.25 Gram Vial (Piperacillin Sodium/Tazobactam) 2.25 Gm Vial 1 Each MC PRN DAILY PRN 7 Days Albuterol Sulfate Conc Neb Soln (Albuterol Sulfate) 2.5 Mg/0.5 Ml Vial.neb 1 Vial NEB Q4HRS PRN Nexium Capsule (Esomeprazole Magnesium) 20 Mg Capsule. 1 Cap PO DAILY Duoneb 0.5-3(2.5) Mg/3 Ml (Albuterol/Ipratropium) 3 Ml Ampul.neb 3 Ml NEB RTQID Reported Aspir-Low (Aspirin) 81 Mg Tablet. 1 Tab PO DAILY Atorvastatin Calcium 40 Mg Tablet 1 Tab PO HS I have reviewed the current psychotropics carefully including drug interactions. Risk benefit ratio favors no change other than as noted in my dictated progress note. Diagnosis: Problems: (1) Major depressive disorder, recurrent episode (2) Impulse control disorder (3) Anxiety disorder (4) Urinary tract infection (5) Dementia, vascular, with depression MICHAEL GALLEGOS MD Apr 01, 2018 19:11
[2018-04-01] MEDS: ATORVASTATIN CALCIUM 20 MG TABLET PO SCH (20:45)
[2018-04-01 23:25] VITALS: BP 113/51
--- NOTE | 2018-04-02 02:33 | PN ---
DATE: SUBJECTIVE: The patient came in with possible sepsis. She has been recently treated for such and was resting fairly comfortably presently. The patient is still very lethargic and generalized weakness. She has been seen by ____. Adjustments to her medications have been made. VITAL SIGNS: The patient's blood pressure 110/60, respiratory rate 20, pulse 70, afebrile. The patient is alert, very lethargic, very depressed appearing. LABORATORY DATA: Hemoglobin has remained stable at 9.9 and 29. White count 9.4, otherwise chemistries show still low potassium of 3.3. CORINNA DIANE MD DR: BRADY/olivia JOB#: [id number] / [id number]
--- NOTE | 2018-04-02 03:27 | CONS ---
DATE OF CONSULTATION: 03/31/2018 This late entry 03/31/2018 covers elements not covered in my initial note 03/31/2018. IDENTIFYING DATA: The patient is a 72-year-old female referred by Dr. Salinas on account of increased confusion, worsening symptoms of depression, and family stating that she has voiced a desire to . The patient's family additionally states she has been combative, refusing to let them clean her at home. She has had multiple hospitalizations here at [facility]. She has been increasingly confused, minimizes her memory deficits. After being at rehab facility for some time, she was taken home, but was unmanageable. As she was noncooperative with treatment brought back to the [facility] and I have been asked to consult for any recommendations from a psychiatric standpoint to help improve her agitation, mood symptoms, aggression, noncompliance with treatment. The patient seen individually, discussed with nursing staff, reviewed the chart. CHIEF COMPLAINT: "There is nothing wrong with my memory. Oh yes, I know it is 2017 and it is 03/31/2018". However, the patient looked around me at the calendar to state the date. HISTORY OF PRESENT ILLNESS: The patient has multiple medical problems including angina, arthritis, CHF, COPD, status post CVA, UTI, diabetes mellitus, and hypertension. She has been increasingly bowel incontinent for generalized weakness, note; urinating on herself at times. She minimizes all psychiatric symptoms, minimizes mood symptoms, but close review of her history is reflective of her cognitive deficit, short term memory deficits, and mood symptoms. No clear symptoms of bipolar disorder. PAST PSYCHIATRIC HISTORY: As above. PAST MEDICAL HISTORY: In addition to what is noted above, she has a history of GERD. PAST SURGICAL HISTORY: Cholecystectomy, appendectomy, hysterectomy. CURRENT PSYCHOTROPICS: Wellbutrin 75 mg twice a day, Celexa 10 mg a day. DRUG ALLERGIES: IBUPROFEN. CODE STATUS: Full code. FAMILY HISTORY: Noncontributory. SOCIAL HISTORY: The patient was living at home with her family, but they had been unable to provide care for her. 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 She has 3 adult children. No alcohol or drug abuse history. MENTAL STATUS EXAMINATION: The patient was seen individually evening of 03/31/2018. She is very anxious, restless, dismissive of any psychiatric problems, but knew it was 03/31/2018 even though she glanced at the calendar for this. She is able to do one step on the serial 7's. No more able to spell world forward with 1 error, backward with 3 errors. Speech coherent, rapid at times. Mood, she minimizes being depressed, but affect is anxious, dysphoric. No active psychotic symptoms, suicidal or homicidal ideation. Attention span short. Language function intact. Short-term memory has deficits. IMPRESSION: CT head shows moderate ventricular enlargement, chronic small vessel ischemic disease, cerebral volume loss, correlate for normal pressure hydrocephalus. From a psychiatric standpoint, would consider changing the Wellbutrin and Celexa to Cymbalta, but we could wait a day or two while her UTI is being treated and then make a decision about the change. At this time, the patient is not keen to have any change. She may need a more structured placement than returning home with family given the above circumstances. Dr. Salinas, thank you for the opportunity to participate in your patient's care. We will follow with you. MICHAEL GALLEGOS MD DR: DARRYL/olivia JOB#: [id number] / [id number]
--- NOTE | 2018-04-02 04:01 | PN ---
DATE: 04/01/2018 This note covers elements not covered in my initial note 04/01/2018. SUBJECTIVE: I met with the patient in the evening. Per nursing report, the patient gets a little forgetful, but minimizes symptoms. She is otherwise quite continent, but has been incontinent frequently. Question raised as whether some of this is part of her mood disorder/depression. However, she is being treated for UTI and it may be best to let the UTI resolve before deciding whether it could be a presentation of mood symptoms. REVIEW OF SYSTEMS: Positive for some tiredness. No CV, , pulmonary, eye system symptoms on review. MENTAL STATUS EXAM: The patient was seen in her room 124. When I questioned if she remembered me, she said she did remember seeing me and when I asked her when that was, she said "4 days ago." In fact, I met her yesterday for the first time. She took several guesses before she guessed yesterday as the correct date. She minimizes mood symptoms and her memory problems. No clear psychotic symptoms, suicidal or homicidal ideation. IMPRESSION: Unchanged from initial note, major depressive disorder, mild cognitive impairment versus major neurocognitive disorder, early vascular with depression. Rest unchanged from initial note. PLAN: Continue Celexa and Wellbutrin as antidepressants that she has taken for some time. Consider changing to Cymbalta if symptoms persist despite resolution of UTI. MICHAEL GALLEGOS MD DR: DARRYL/olivia JOB#: [id number] / [id number]
[2018-04-02] MEDS: IPRATRPIUM/ALBUTEROL 0.5/2.5MG 3 ML NEBU. NEB SCH ×3 (05:12→16:53)
[2018-04-02 05:35] VITALS: BP_SYST 102; BP_SYST 173; BP_DIAS 61; BP_DIAS 81
[2018-04-02] MEDS: HEPARIN PF for SUB-Q USE 5,000 UNIT/0.5 ML VIAL. SQ SCH ×3 (05:59→14:00)
[2018-04-02] MEDS: PANTOPRAZOLE 40 MG TABLET. PO SCH (07:52)
[2018-04-02] MEDS: POTASSIUM CHLORIDE 10 MEQ TABLET.ER. PO SCH (07:52)
[2018-04-02] MEDS: ASPIRIN ENTERIC COATED 81 MG TABLET.DR. PO SCH (07:52)
[2018-04-02] MEDS ORDERED: PNEUMOC CONJ VACC 23-VALENT 0.5 ML VIAL. VAX IM ONE (09:00)
[2018-04-02] MEDS: ROFLUMILAST 500 MCG TABLET PO SCH (09:10)
[2018-04-02] MEDS: CITALOPRAM 10 MG TABLET. PO SCH (09:10)
[2018-04-02] MEDS: LACTOBACILLUS RHAMNOSUS GG 1 CAPSULE. PO SCH (09:10)
[2018-04-02] MEDS: amLODIPine BESYLATE 10 MG TABLET PO SCH (09:11)
[2018-04-02] MEDS: MAGNESIUM CHLORIDE ER 64 MG TABLET.ER PO SCH (09:11)
[2018-04-02] MEDS: predniSONE 5 MG TABLET PO SCH (09:11)
[2018-04-02] MEDS: METOPROLOL SUCC 24HR ER 25 MG TAB.ER.24H. PO SCH (09:12)
[2018-04-02] MEDS: buPROPion 75 MG TABLET PO SCH (09:12)
[2018-04-02 11:21] VITALS: BP 101/58
[2018-04-02] MEDS: cefTRIAXone IV Push 1 GM VIAL. IVP SCH (11:24)
[2018-04-02] MEDS ORDERED: CIPR500T94 PO (13:22)
[2018-04-02 14:58] VITALS: BP 108/68
--- NOTE | 2018-04-02 18:02 | NUR ---
Discharge to home via w/c accompanied by staff and son. Alert and oriented, vs stable, no c/o pain or distress. Sl dc'ed, tolerated procedure well. Dc plan with prescription for ceftin 500mg bid given to son, verbalized understanding. [facility] notified and copies of h & p, face sheet, medications and continuum of care faxed to [facility] for follow up at home. Case management will follow up for placement in prison.
== END 2018-04-02 18:02 | disposition home health service (06) | DRG 871 ==
LOC: ER 09:11 → 1 SOUTH 10:39
PROVIDERS: ADMIT Family Medicine; ATTEND Family Medicine
DX: A41.9 Sepsis, unspecified organism (principal); G93.40 Encephalopathy, unspecified; F33.9 Major depressive disorder, recurrent, unspecified; N39.0 Urinary tract infection, site not specified; D63.8 Anemia in other chronic diseases classified elsewhere; E87.6 Hypokalemia; E11.9 Type 2 diabetes mellitus without complications; F01.50 Vascular dementia, unspecified severity, without behavioral disturbance, psychotic disturbance, mood disturbance, and anxiety; F41.9 Anxiety disorder, unspecified; F63.9 Impulse disorder, unspecified; I11.0 Hypertensive heart disease with heart failure; I25.10 Atherosclerotic heart disease of native coronary artery without angina pectoris; I50.9 Heart failure, unspecified; J44.9 Chronic obstructive pulmonary disease, unspecified; K21.9 Gastro-esophageal reflux disease without esophagitis; H26.9 Unspecified cataract; L89.90 Pressure ulcer of unspecified site, unspecified stage; M19.90 Unspecified osteoarthritis, unspecified site; Z80.9 Family history of malignant neoplasm, unspecified; Z86.73 Personal history of transient ischemic attack (TIA), and cerebral infarction without residual deficits; Z90.49 Acquired absence of other specified parts of digestive tract; Z90.710 Acquired absence of both cervix and uterus; Z87.01 Personal history of pneumonia (recurrent); Z79.899 Other long term (current) drug therapy; Z87.891 Personal history of nicotine dependence; Z79.82 Long term (current) use of aspirin
CPT/HCPCS: 36415; 70450; 71046; 80048; 80053; 81001; 82553; 83605; 83690; 84484; 85025; 85610; 87040; 87086; 90732; 93005; 94640; 96374; J0696; J7512; J7620; 97110; 97530; 99285-25; J7030

== ENCOUNTER 2018-04-05 22:02 | Inpatient (IN) | payer OTHER ==
[~2018-04-05] VITALS: Ht 165.1 cm; Wt 69.5 kg
[~2018-04-05 22:02] MED LIST changes: +CIPR500T94 PO
--- NOTE | 2018-04-05 22:13 | ED.ADGEN ---
Past History Past Medical History: Angina, Anxiety, Arthritis, CAD, CHF, Constipation, COPD , CVA, Diabetes, Hypertension, UTI, Other Past Surgical History: Appendectomy Alcohol Use: None Drug Use: None Adult General Chief Complaint Chief Complaint Note- this is a re-dictated chart- lst chart lost during computer failure- May have duplications and errors. ".. I don't know.. I don't know why my son sent me here.." HPI HPI Patient is a 72 year old female who presents with above hx and complaints of mental status change. ..The pt. was admitted to Dr. Salinas on Wed. for UTI, and Discharge on Sat. Has not had any antibiotics intially after discharge- unable to get filled thru. pharmacy. Then pt. refused medications. Patient has had very unstable gait has had frequent falls. Pt. also has not been eating or drinking appropriate since discharge because of nausea. Pt. also refusing to take a bath per son. Pt. per son much more confused. Has lost control of bowel and urine. Pt. refusing to have diaper changes. Pt. has hx of multiple medical problems asthma, COPD, anxiety, arthritis, coronary artery disease, CHF, CVAs, diabetes, hypertension, and urinary tract infections. Pt. was seen by Dr. Bautista on prior visit. Review of Systems Review of Systems Pt. has minimal complaints. Poor historian Constitutional: Denies fever or chills [] Eyes: Denies change in visual acuity, redness, or eye pain [] HENT: Denies nasal congestion or sore throat [] Respiratory: Denies cough or shortness of breath [] Cardiovascular: No additional information not addressed in HPI [] GI: Denies abdominal pain, nausea, vomiting, bloody stools or diarrhea [] : Denies dysuria or hematuria [] Musculoskeletal: Denies back pain or joint pain [] Integument: Denies rash or skin lesions [] Neurologic: Denies headache, focal weakness or sensory changes [] Endocrine: Denies polyuria or polydipsia [] All other systems were reviewed and found to be within normal limits, except as documented in this note. Family History Family History Noncontributory Current Medications Current Medications Current Medications Medications (Trade) Dose Ordered Sig/Edmond Start Time Stop Time Status Last Admin Dose Admin Ceftriaxone Sodium 1 gm/ Sodium Chloride 50 ml @ 100 mls/hr 1X ONCE 04/05/18 22:30 04/05/18 22:59 DC 04/06/18 00:55 100 MLS/HR Allergies Allergies Allergies Coded Allergies Type Severity Reaction Last Updated Verified ibuprofen Allergy Intermediate 01/23/18 Yes Physical Exam Physical Exam Constitutional: no acute distress, non-toxic appearance. [] HENT: Normocephalic, atraumatic, bilateral external ears normal, oropharynx moist, no oral exudates, nose normal. [] Eyes: PERRLA, EOMI, conjunctiva normal, no discharge. [] Neck: Normal range of motion, no tenderness, supple, no stridor. [] Cardiovascular: Tachycardia Heart rate regular rhythm, no murmur . PMI to the left Lungs & Thorax: Bilateral breath sounds equal apex with few scattered wheezes on auscultation [] Abdomen: Bowel sounds normal, soft, no tenderness, no masses, no pulsatile masses. Mild distention. Stool and urine in diaper Skin: Warm, dry, no erythema, no rash. Poor turgor Back: No tenderness, no CVA tenderness. [] Extremities: No tenderness, no cyanosis, no clubbing, , no edema. Arthritic Changes. Patient moves all extremities on request Neurologic: Alert and oriented X 3, however does seem confused at times, no gross motor or sensory function deficits. Tremor Psychologic: Affect anxious, judgement appears limited,, mood depressed. Current Patient Data Vital Signs Vital Signs Date Time Temp Pulse Resp B/P (MAP) Pulse Ox O2 Delivery O2 Flow Rate FiO2 04/06/18 00:05 98 21 150/87 (108) 99 Nasal Cannula 3.0 04/05/18 22:02 98.1 Lab Results Laboratory Tests Test 04/05/18 22:14 04/05/18 22:30 Urine Collection Type U cath Urine Color Straw Urine Clarity Clear Urine pH 5.5 Urine Specific [place] 1.025 Urine Protein Neg (NEG-TRACE) Urine Glucose (UA) Neg mg/dL (NEG) Urine Ketones (Stick) 80 mg/dL (NEG) Urine Blood Neg (NEG) Urine Nitrite Neg (NEG) Urine Bilirubin Neg (NEG) Urine Urobilinogen Dipstick 0.2 mg/dL (0.2 mg/dL) Urine Leukocyte Esterase Neg (NEG) Urine RBC Occ /HPF (0-2) Urine WBC 5-10 /HPF (0-4) Urine Squamous Epithelial Cells Few /LPF Urine Bacteria 0 /HPF (0-FEW) Urine Mucus Mod /LPF Urine Yeast Present /HPF Urine Opiates Screen Neg (NEG) Urine Methadone Screen Neg (NEG) Urine Barbiturates Neg (NEG) Urine Phencyclidine Screen Neg (NEG) Urine Amphetamine/Methamphetamine Neg (NEG) Urine Benzodiazepines Screen Neg (NEG) Urine Cocaine Screen Neg (NEG) Urine Cannabinoids Screen Neg (NEG) Urine Ethyl Alcohol Neg (NEG) White Blood Count 11.0 x10^3/uL (4.0-11.0) Red Blood Count 4.07 x10^6/uL (3.50-5.40) Hemoglobin 12.6 g/dL (12.0-15.5) Hematocrit 37.1 % (36.0-47.0) Mean Corpuscular Volume 91 fL (79-100) Mean Corpuscular Hemoglobin 31 pg (25-35) Mean Corpuscular Hemoglobin Concent 34 g/dL (31-37) Red Cell Distribution Width 15.0 % (11.5-14.5) H Platelet Count 353 x10^3/uL (140-400) Neutrophils (%) (Auto) 58 % (31-73) Lymphocytes (%) (Auto) 29 % (24-48) Monocytes (%) (Auto) 9 % (0-9) Eosinophils (%) (Auto) 3 % (0-3) Basophils (%) (Auto) 1 % (0-3) Neutrophils # (Auto) 6.3 x10^3uL (1.8-7.7) Lymphocytes # (Auto) 3.1 x10^3/uL (1.0-4.8) Monocytes # (Auto) 1.0 x10^3/uL (0.0-1.1) Eosinophils # (Auto) 0.3 x10^3/uL (0.0-0.7) Basophils # (Auto) 0.1 x10^3/uL (0.0-0.2) Prothrombin Time 10.4 SEC (9.4-11.4) Prothrombin Time INR 1.0 (0.9-1.1) PTT 25 SEC (23-33) Sodium Level 144 mmol/L (136-145) Potassium Level 3.4 mmol/L (3.5-5.1) L Chloride Level 104 mmol/L (98-107) Carbon Dioxide Level 30 mmol/L (21-32) Anion Gap 10 (6-14) Blood Urea Nitrogen 10 mg/dL (7-20) Creatinine 1.1 mg/dL (0.6-1.0) H Estimated GFR (Cockcroft-Gault) 48.7 Glucose Level 88 mg/dL (70-99) Lactic Acid Level 1.2 mmol/L (0.4-2.0) Calcium Level 9.0 mg/dL (8.5-10.1) Magnesium Level 1.8 mg/dL (1.8-2.4) Creatine Kinase 51 U/L (26-192) Creatine Kinase MB (Mass) 0.5 ng/mL (0.0-3.6) Creatine Kinase MB Relative Index 1.0 % (0-4) Troponin I Quantitative < 0.017 ng/mL (0-0.055) GO-Geg-N-Type Natriuretic Peptide 287 pg/mL (0-124) H EKG EKG I interpretation EKG shows a sinus rhythm at 106 bpm.[] Does have a right axis deviation as well as some nonspecific contour changes. Radiology/Procedures Radiology/Procedures My interpretation CT shows no shift shift, mass, edema, bleed, or fracture. Does have very dilated ventricles. Does have findings of white matter disease.[ ] My interpretation of acute abdomen film shows no acute cardiopulmonary changes, cardiomegaly, no free air in the diaphragm, increased stool throughout the colon. Nonspecific bowel gas pattern. Course & Med Decision Making Course & Med Decision Making Pertinent Labs and Imaging studies reviewed. (See chart for details) Patient is being admitted to Dr. Galdamez for further evaluation and treatment. Consider possible neurology consult. [] Final Impression Final Impression 1. Hx. of UTI 2. Non-compliant with medical regimen- [] 3. Mental status change 4. Hypokalemia 5. Dilated ventricles-hydrocephalus versus normal pressure hydrocephalus? 6. Incontinent of stool and urine 7. History of falls 8. Elevated creatinine 9. Dementia 10. Constipation Dragon Disclaimer Dragon Disclaimer This electronic medical record was generated, in whole or in part, using a voice recognition dictation system. DARELL GOVEA MD Apr 05, 2018 22:13
--- NOTE | 2018-04-05 22:44 | EKG ---
[address] [address] Test Date: 2018-04-05 Test Time: 22:37:22 Pat Name: JHONATAN MODI Department: Room: Gender: F Banquet Set Up Person: Jerrica : 1945 Requested By: DARELL GOVEA Order Number: [id number] Reading MD: Reynaldo Ann MD Measurements Intervals [place] Rate: 106 P: 110 [place]: 162 QRS: 127 QRSD: 74 T: 107 QT: 330 QTc: 440 Interpretive Statements SINUS TACHYCARDIA Electronically Signed On 04-12-2018 10:26:31 CDT by Reynaldo Ann MD
[2018-04-05 22:51] LABS: BASO # 0.1 x10^3/uL (0.0-0.2); BASO % 1 % (0-3); EOS # 0.3 x10^3/uL (0.0-0.7); EOS % 3 % (0-3); HEMATOCRIT 37.1 % (36.0-47.0); HEMOGLOBIN 12.6 g/dL (12.0-15.5); LYMPH # 3.1 x10^3/uL (1.0-4.8); LYMPH % 29 % (24-48); MEAN CORPUSCULAR HEMOGLOBIN 31 pg (25-35); MEAN CORPUSCULAR HGB CONC 34 g/dL (31-37); MEAN CORPUSCULAR VOLUME 91 fL (79-100); MONO % 9 % (0-9); NEUT # 6.3 x10^3uL (1.8-7.7); NEUT % 58 % (31-73); PLATELET COUNT 353 x10^3/uL (140-400); RED BLOOD COUNT 4.07 x10^6/uL (3.50-5.40)
[2018-04-05 22:52] LABS: BARBITURATES NEG (NEG); BENZODIAZEPINES NEG (NEG); CANNABINOIDS NEG (NEG); COCAINE NEG (NEG); METHADONE NEG (NEG); OPIATES NEG (NEG); PHENCYCLIDINE NEG (NEG)
[2018-04-05 22:54] LABS: AMPHETAMINE/METHAMPHETAMINE NEG (NEG); BACTERIA,URINE 0 /HPF (0-FEW); BILIRUBIN,URINE NEG (NEG); CLARITY,URINE CLEAR; COLOR,URINE STRAW; GLUCOSE,URINE NEG (NEG); NITRITE,URINE NEG (NEG); RBC,URINE OCC /HPF (0-2); SQUAMOUS EPITHELIAL CELL,UR FEW /LPF; UROBILINOGEN,URINE 0.2 mg/dL (0.2 mg/dL); YEAST,URINE PRESENT /HPF
[2018-04-05 23:18] LABS: CREATININE 1.1 mg/dL (0.6-1.0); GFR 48.7; MAGNESIUM 1.8 mg/dL (1.8-2.4); POTASSIUM 3.4 mmol/L (3.5-5.1)
--- NOTE | 2018-04-06 00:14 | RAD ---
Indication: Weakness, headache Technique: Noncontrast CT head was obtained. CT cervical spine includes axial images and coronal and sagittal reformatted images. Comparison CT head is from March 30, 2018. One or more of the following individualized dose reduction techniques were utilized for this examination: 1. Automated exposure control 2. Adjustment of the mA and/or kV according to patient size 3. Use of iterative reconstruction technique Findings: Head: Ventricular prominence again is out of proportion to the degree of sulcal prominence. Decreased attenuation in the periventricular white matter again is noted. It is not appreciably changed. There is no acute intracranial hemorrhage or extra-axial fluid collection. There is no mass effect or midline shift. There is no evidence of an evolving infarct. There is no depressed skull fracture. The included paranasal sinuses and mastoid air cells are clear. Cervical spine: There is slight motion degradation. There is no acute fracture or dislocation allowing for this motion limitation. Prevertebral soft tissues are within normal limits. Craniovertebral junction is unremarkable. Mild degenerative changes are noted. Lymph nodes along the cervical chains are presumed reactive. There is apical emphysema. IMPRESSION: Head: 1. Ventricular prominence remains out of proportion to the degree of sulcal prominence, similar to prior. Normal pressure hydrocephalus should be clinically considered. 2. Decreased attenuation in the supratentorial white matter is nonspecific, may be related to small vessel ischemic disease, could also be related to transependymal spread of CSF in the setting of hydrocephalus. This is also similar to prior. Cervical spine: 1. Allowing for mild motion, there is no acute fracture or dislocation. There are mild degenerative changes greatest at C6-C7. Electronically signed by: Brandon Yanez MD (04/06/2018 12:11 AM) [facility]
[2018-04-06] MEDS ORDERED: cefTRIAXone SODIUM 1 GM VIAL IV ONE (00:41)
[2018-04-06] MEDS ORDERED: IV NORMAL SALINE 50ML 50 ML ONE (00:41)
[2018-04-06] MEDS: IV RINGERS SOLUTION,LACTATED 1,000 ML IV SCH ×4 (00:55→20:47)
--- NOTE | 2018-04-06 00:57 | RAD ---
PA chest and AP upright supine abdomen x-rays HISTORY: Nausea and weakness. FINDINGS: Right lower lobe 7 mm soft tissue nodule as present on CT chest from February 12, 2018. No pulmonary opacities or pleural effusions. Heart size normal. No pneumoperitoneum. Mild gas throughout the stomach, small bowel and large bowel. Moderate volume of stool within the rectosigmoid colon. No abnormally dilated bowel loops or air-fluid levels to suggest obstruction. Bones and soft tissues are unremarkable. IMPRESSION: Moderate volume of stool within the rectosigmoid colon. No small bowel obstruction. 7 mm right lower lobe pulmonary nodule as present on prior CT chest imaging. Electronically signed by: Michael Neil MD (04/06/2018 12:54 AM) [facility]
[2018-04-06 01:43] VITALS: BP 133/68
[2018-04-06] MEDS ORDERED: ACETAMINOPHEN 325 MG TABLET PO PRN (02:30)
[2018-04-06 06:21] VITALS: BP 148/69
[2018-04-06] MEDS ORDERED: ELECTROLYTE (NON-ICU) PROTOCOL MC PRN (09:00)
[2018-04-06] MEDS ORDERED: NITROGLYCERIN SUBLINGUAL 0.4 MG BOTTLE OF 25. SL PRN (09:15)
[2018-04-06] MEDS: ASPIRIN ENTERIC COATED 81 MG TABLET.DR. PO SCH (10:13)
[2018-04-06] MEDS: METOPROLOL SUCC 24HR ER 25 MG TAB.ER.24H. PO SCH (10:13)
[2018-04-06] MEDS: amLODIPine BESYLATE 10 MG TABLET PO SCH (10:13)
[2018-04-06] MEDS: PANTOPRAZOLE 40 MG TABLET. PO SCH (10:13)
[2018-04-06] MEDS: MAGNESIUM CHLORIDE ER 64 MG TABLET.ER PO SCH (10:13)
[2018-04-06] MEDS: LACTOBACILLUS RHAMNOSUS GG 1 CAPSULE. PO SCH ×2 (10:13→20:46)
[2018-04-06] MEDS: ROFLUMILAST 500 MCG TABLET PO SCH (10:14)
--- NOTE | 2018-04-06 10:38 | CONS ---
DATE OF CONSULTATION: 04/06/2018 NEUROLOGY CONSULTATION REASON FOR CONSULTATION: Acute mental status changes. HISTORY OF PRESENT ILLNESS: This is a 72-year-old right-handed female who was admitted through Emergency Room on account of acute mental status changes. The patient was discharged from [facility] last week after she was treated for pneumonia and possible urinary tract infections. Today, she complains of increased urinary frequency and burning on urination. She also complains of slowly progressive memory loss over the last 2 years along with unsteady gait with frequent falls. The patient has been using a walker for several years because of unsteadiness. She denies headaches, visual disturbances, nausea, vomiting, chest pain, shortness of breath or palpitation, dysarthria or dysphagia, weakness or paresthesia. Initial nonenhanced head CT scan revealed evidence of generalized cortical atrophy with prominent ventricles suggestive of possible normal pressure hydrocephalus along with chronic small vessel ischemic changes. PAST MEDICAL HISTORY: Quite extensive including coronary artery disease, hypertension, hyperlipidemia, stroke, diabetes mellitus, GERD, arthritis, COPD with exacerbation and recently treated for pneumonia and ongoing urinary tract infections, major depression, anxiety, and possible early dementia. PAST SURGICAL HISTORY: Significant for cholecystectomy and appendectomy. SOCIAL HISTORY: The patient lives with her son in [place]. She denies smoking, alcohol drinking, or illicit drug use. CURRENT HOME MEDICATIONS: Include albuterol inhaler, amlodipine 10 mg daily, Lipitor 40 mg p.o. nightly, esomeprazole 40 mg daily, nitroglycerin p.r.n. sublingually, and prednisone 5 mg daily. ALLERGIES: IBUPROFEN. REVIEW OF SYSTEMS: A 10-point review of system was performed as mentioned above in history of present illness and presented with slowly progressive memory loss, gait disturbances, frequent falls, and recent mental status changes. PHYSICAL EXAMINATION: GENERAL: Well-developed, well-nourished female, not in acute distress. She weighs 149 pounds. VITAL SIGNS: Blood pressure 148/69, respiratory rate 18, pulse is 91 and regular, temperature 97.9, oxygen saturation 94% on room air. HEENT: Normocephalic, atraumatic, otherwise unremarkable. NECK: Supple. Negative for carotid bruit, JVD, lymphadenopathy, or thyromegaly. LUNGS: Clear to A and P. CARDIOVASCULAR: Regular rate and rhythm. Normal S1-S2. There is no S3, S4, or murmur. ABDOMEN: Soft. Bowel sounds positive. EXTREMITIES: Negative for cyanosis, clubbing, or pitting edema. NEUROLOGICAL: 1. Mental Status: The patient is alert and oriented x 3. Speech is fluent. There is no language dysfunction. The patient recalls 2/3 immediately and after 1 and 3 minutes. Judgment and abstracting thinking are fair. The patient denies hallucination or delusion. 2. Cranial Nerves: Visual wyatt are full. The pupils are reactive to light and accommodation. The extraocular movements are intact. There is no nystagmus. There is no facial motor or sensory deficit. Hearing is intact bilaterally. The palate is elevated symmetrically. Sternocleidomastoid muscles are powerful bilaterally. The patient shrugs her shoulders symmetrically, protrudes her tongue in the midline without fasciculation or atrophy. 3. Motor Examination: No focal muscle bulk is seen. The tone is normal. The strength is 4/5 throughout. 4. Sensory Examination: Reveals normal pinprick, light touch, vibratory and position senses. 5. Deep tendon reflexes are symmetric and hypoactive with absent Achilles responses. 6. Gait: Unsteady stance. LABORATORY DATA: CBC revealed white blood cells of 10,000, hemoglobin 12.6, hematocrit 37.1, platelet count 353,000. Chemistry revealed sodium of 144, potassium 3.4, chloride 104, CO2 of 30, BUN 10, creatinine 1.1, glucose 88, lactic acid 1.2, calcium is 9. Cardiac enzymes are normal with normal troponin level. BNP is elevated at 287. Urinalysis revealed white blood cells of 5-10 with negative urinary leukocyte esterase. Urine drug screen is negative. IMPRESSION: 1. Acute encephalopathy, probably due to underlying urosepsis. 2. Multiple medical problems including hypertension, hyperlipidemia, coronary artery disease, diabetes mellitus, and gastroesophageal reflux disease. 3. Multiple psychiatric problems including major depressions and anxiety. 4. Possible early dementia. 5. Abnormal head CT scan suggestive of possible early normal pressure hydrocephalus. RECOMMENDATIONS: 1. Continue with current management initiated by Dr. Salinas and treat the underlying urinary tract infections and possible sepsis. 2. The patient needs a complete workup for dementia and can be done on an outpatient basis. We will check a vitamin B12, folate, RPR, and thyroid profile. 3. Further evaluation and management for possible normal pressure hydrocephalus will be performed on an outpatient basis. 4. Physical therapy. M Kaur PIERCE MD DR: JASON/olivia JOB#: [id number] / [id number]
[2018-04-06 11:09] VITALS: BP 128/72
[2018-04-06] MEDS: ACETAMINOPHEN 325 MG TABLET PO PRN ×2 (11:14→19:53)
[2018-04-06 14:42] VITALS: BP 122/66
--- NOTE | 2018-04-06 16:29 | HP ---
ADMIT DATE: 04/06/2018 HISTORY OF PRESENT ILLNESS: The patient is a 72-year-old female who came in with mental status changes had been recently admitted for urinary tract infections with pneumonia. The patient apparently when she was normal refused medication was noted to have multiple frequent falls as well as living in conditions that were not conducive for her health. The patient also was not eating or drinking since discharge because of nausea. The patient is refusing to bathe and much more confused than normal. As a result of this change in mental status, the patient was admitted to the hospital for further evaluation and treatment. PAST MEDICAL HISTORY: Angina, anxiety, arthritis, coronary artery disease, CHF, constipation, COPD, CVA, diabetes, hypertension, multiple urinary tract infections and dementia. PAST SURGICAL HISTORY: Appendectomy. SOCIAL HISTORY: Denies smoking, alcohol, or drug use. FAMILY HISTORY: Unremarkable. ALLERGIES: The patient has an allergy to IBUPROFEN. HOME MEDICATIONS: Include Zosyn IV daily, ciprofloxacin b.i.d., DuoNeb treatments. CORINNA DIANE MD DR: BRADY/olivia JOB#: [id number] / [id number]
[2018-04-06 19:12] LABS: THYROXINE 7.9 ug/dL (4.5-12.0)
[2018-04-06 19:51] VITALS: BP 117/65
[2018-04-06] MEDS: ATORVASTATIN CALCIUM 20 MG TABLET PO SCH (20:46)
[2018-04-06 22:26] VITALS: BP 121/77
[2018-04-07] MEDS: IV RINGERS SOLUTION,LACTATED 1,000 ML IV SCH ×4 (01:30→22:01)
[2018-04-07 05:16] VITALS: BP 136/73
[2018-04-07 05:54] LABS: BASO # 0.1 x10^3/uL (0.0-0.2); BASO % 1 % (0-3); EOS # 0.5 x10^3/uL (0.0-0.7); EOS % 6 % (0-3); HEMATOCRIT 33.1 % (36.0-47.0); HEMOGLOBIN 11.2 g/dL (12.0-15.5); LYMPH # 2.3 x10^3/uL (1.0-4.8); LYMPH % 26 % (24-48); MEAN CORPUSCULAR HEMOGLOBIN 31 pg (25-35); MEAN CORPUSCULAR HGB CONC 34 g/dL (31-37); MEAN CORPUSCULAR VOLUME 91 fL (79-100); MONO # 0.9 x10^3/uL (0.0-1.1); MONO % 10 % (0-9); NEUT # 5.1 x10^3uL (1.8-7.7); NEUT % 58 % (31-73); PLATELET COUNT 300 x10^3/uL (140-400); RED BLOOD COUNT 3.64 x10^6/uL (3.50-5.40); RED CELL DISTRIBUTION WIDTH 14.9 % (11.5-14.5); WHITE BLOOD COUNT 8.8 x10^3/uL (4.0-11.0)
[2018-04-07 06:05] LABS: CALCIUM 8.4 mg/dL (8.5-10.1); CREATININE 0.8 mg/dL (0.6-1.0); GFR 70.3; POTASSIUM 3.3 mmol/L (3.5-5.1)
[2018-04-07] MEDS: PANTOPRAZOLE 40 MG TABLET. PO SCH (07:26)
[2018-04-07] MEDS: LACTOBACILLUS RHAMNOSUS GG 1 CAPSULE. PO SCH ×2 (08:09→20:08)
[2018-04-07] MEDS: ASPIRIN ENTERIC COATED 81 MG TABLET.DR. PO SCH (08:10)
[2018-04-07] MEDS: MAGNESIUM CHLORIDE ER 64 MG TABLET.ER PO SCH (08:10)
[2018-04-07] MEDS: METOPROLOL SUCC 24HR ER 25 MG TAB.ER.24H. PO SCH (08:10)
[2018-04-07] MEDS: amLODIPine BESYLATE 10 MG TABLET PO SCH (08:10)
[2018-04-07] MEDS: ROFLUMILAST 500 MCG TABLET PO SCH (08:11)
[2018-04-07] MEDS ORDERED: cefTRIAXone IV Push 1 GM VIAL. IVP SCH (09:00)
[2018-04-07 11:17] VITALS: BP 124/71
[2018-04-07] MEDS: CIPROFLOXACIN HCL 500 MG TABLET PO SCH ×2 (11:40→20:08)
--- NOTE | 2018-04-07 12:23 | PN ---
DATE: 04/07/2018 SUBJECTIVE: The patient denies any new medical or neurological complaints. She denies headaches, visual disturbances, nausea, vomiting, chest pain, shortness of breath or palpitation. OBJECTIVE: GENERAL: Well-developed, well-nourished female, not in acute distress. VITAL SIGNS: Blood pressure 136/73, respiratory rate 18, pulse is 75 and regular, temperature is 98.2, oxygen saturation is 95% on 2 liters via nasal cannula. HEENT: Normocephalic, atraumatic, otherwise unremarkable. NECK: Supple. Negative for carotid bruit, lymphadenopathy or thyromegaly. LUNGS: Clear to A and P. CARDIOVASCULAR: Regular rate and rhythm, normal S1, S2. There is no S3, S4 or murmur. ABDOMEN: Soft. Bowel sounds positive. EXTREMITIES: Negative for cyanosis, clubbing or pitting edema. NEUROLOGICAL EXAM: Mental Status: The patient is alert and oriented x 3. Speech is fluent. There is no language dysfunction, otherwise unremarkable. The patient recalls 2/3 immediately after 1 and 3 minutes. Cranial nerves are intact. Motor Examination: No focal muscle bulk was seen. The strength was 5/5 throughout. Sensory examination revealed normal pinprick, light touch, vibratory and position senses. Deep tendon reflexes were asymmetric and hypoactive with absent Achilles responses. GAIT: The stance is unsteady. LABORATORY DATA: Chemistry revealed sodium 143, potassium 3.3, chloride 106, CO2 33, BUN 5, creatinine 0.8, glucose is 89 and calcium 8.4. Vitamin B12, folate and TSH with thyroid profile is normal. IMPRESSION: 1. Acute encephalopathy -- improved, probably due to underlying systemic/urosepsis. 2. Multiple medical problems include hypertension, hyperlipidemia, coronary artery disease, diabetes mellitus, gastroesophageal reflux disease. 3. Possible early dementia with a negative workup for reversible precipitating factors for dementia. RECOMMENDATIONS: 1. Continue with current management initiated by Dr. Salinas for systemic sepsis. 2. Physical therapy as tolerated. M Kaur PIERCE MD DR: JASON/olivia JOB#: [id number] / [id number]
[2018-04-07] MEDS: PIPERACILLIN/TAZOBACTAM 2.25 GM in IV NORMAL SALINE 50ML 50 ML IV SCH ×2 (14:29→22:01)
[2018-04-07 15:29] VITALS: BP 131/76
--- NOTE | 2018-04-07 18:18 | PDOC ---
Exam Note: Tee Note: Please also refer to the separate dictated note~for this date of service dictated separately.~Patient seen individually. Discussed the patient with Nursing staff reviewed the chart.~Reviewed interim history and current functioning. Reviewed vital signs,~Labs/ Radiology~and current medications noted below. Continue current treatment with the changes noted in the dictated addendum note Assessment: Vital Signs: Vital Signs Date Time Temp Pulse Resp B/P (MAP) Pulse Ox O2 Delivery O2 Flow Rate FiO2 04/07/18 11:17 97.4 74 18 124/71 (88) 96 Nasal Cannula 1.0 I&O Intake and Output 04/07/18 07:00 Intake Total 560 ml Balance 560 ml Intake Oral 560 ml # Voids 5 # Bowel Movements 2 Labs: Laboratory Tests Test 04/07/18 05:34 White Blood Count 8.8 x10^3/uL (4.0-11.0) Red Blood Count 3.64 x10^6/uL (3.50-5.40) Hemoglobin 11.2 g/dL (12.0-15.5) L Hematocrit 33.1 % (36.0-47.0) L Mean Corpuscular Volume 91 fL (79-100) Mean Corpuscular Hemoglobin 31 pg (25-35) Mean Corpuscular Hemoglobin Concent 34 g/dL (31-37) Red Cell Distribution Width 14.9 % (11.5-14.5) H Platelet Count 300 x10^3/uL (140-400) Neutrophils (%) (Auto) 58 % (31-73) Lymphocytes (%) (Auto) 26 % (24-48) Monocytes (%) (Auto) 10 % (0-9) H Eosinophils (%) (Auto) 6 % (0-3) H Basophils (%) (Auto) 1 % (0-3) Neutrophils # (Auto) 5.1 x10^3uL (1.8-7.7) Lymphocytes # (Auto) 2.3 x10^3/uL (1.0-4.8) Monocytes # (Auto) 0.9 x10^3/uL (0.0-1.1) Eosinophils # (Auto) 0.5 x10^3/uL (0.0-0.7) Basophils # (Auto) 0.1 x10^3/uL (0.0-0.2) Sodium Level 143 mmol/L (136-145) Potassium Level 3.3 mmol/L (3.5-5.1) L Chloride Level 106 mmol/L (98-107) Carbon Dioxide Level 33 mmol/L (21-32) H Anion Gap 4 (6-14) L Blood Urea Nitrogen 5 mg/dL (7-20) L Creatinine 0.8 mg/dL (0.6-1.0) Estimated GFR (Cockcroft-Gault) 70.3 Glucose Level 89 mg/dL (70-99) Calcium Level 8.4 mg/dL (8.5-10.1) L Current Medications: Meds: Current Medications Ceftriaxone Sodium 1 gm/ Sodium Chloride 50 ml @ 100 mls/hr 1X ONCE IV Last administered on 04/06/18at 00:55; Start 04/05/18 at 22:30; Stop 04/05/18 at 22:59 ; Status DC Ceftriaxone Sodium 1 gm/ Sodium Chloride 50 ml @ 100 mls/hr DAILY IV Last administered on 04/06/18at 11:09; Start 04/06/18 at 09:00; Stop 04/06/18 at 13:00 ; Status DC Lactated Ringer's 1,000 ml @ 160 mls/hr Q6H15M IV Last administered on at 20:47; Start 04/06/18 at 00:30 Acetaminophen (Tylenol) 650 mg PRN Q6HRS PRN PO PAIN / TEMP Last administered on 04/06/18at 02:52; Start 04/06/18 at 02:30; Stop 04/06/18 at 10:17; Status DC Info (Non-Icu Electrolyte Protocol) 1 ea CONT PRN PRN MC PER PROTOCOL; Start at 09:00 Acetaminophen (Tylenol) 650 mg PRN Q6HRS PRN PO PAIN / TEMP Last administered on 04/06/18at 19:53; Start 04/06/18 at 09:15 Lactobacillus Rhamnosus (Culturelle) 1 cap BID PO Last administered on at 08:09; Start 04/06/18 at 09:30 Metoprolol Succinate (Toprol Xl) 25 mg DAILY PO Last administered on 04/07/18at 08:10; Start 04/06/18 at 09:30 Nitroglycerin (Nitrostat) 0.4 mg PRN Q5MIN PRN SL CHEST PAIN; Start 04/06/18 at 09:15 Amlodipine Besylate (Norvasc) 10 mg DAILY PO Last administered on 04/07/18 08: 10; Start 04/06/18 at 09:30 Aspirin (Aspirin Enteric Coated) 81 mg DAILYWBKFT PO Last administered on 08:10; Start 04/06/18 at 09:30 Pantoprazole Sodium (Protonix) 40 mg DAILYAC PO Last administered on 04/07/18 07:26; Start 04/06/18 at 09:30 Roflumilast (Daliresp) 500 mcg DAILY PO Last administered on 04/07/18 08:11; Start 04/06/18 at 09:30 Magnesium Chloride (Mag Delay) 64 mg DAILY PO Last administered on 04/07/18 08 :10; Start 04/06/18 at 09:30 Atorvastatin Calcium (Lipitor) 40 mg QHS PO Last administered on 04/06/18at 20: 46; Start 04/06/18 at 21:00 Ceftriaxone Sodium (Rocephin) 1 gm DAILY IVP Last administered on 04/07/18 08: 09; Start 04/07/18 at 09:00; Stop 04/07/18 at 10:19; Status DC Ciprofloxacin (Cipro) 500 mg BID PO Last administered on 04/07/18at 11:40; Start 04/07/18 at 11:00 Piperacillin Sod/ Tazobactam Sod 2.25 gm/Sodium Chloride 50 ml @ 100 mls/hr Q8H IV Last administered on 04/07/18at 14:29; Start 04/07/18 at 14:00 Active Scripts Active Cipro (Ciprofloxacin Hcl) 500 Mg Tablet 1 Tab PO BID Prednisone 1 Mg Tablet 5 Mg PO DAILY Take 4 tablets daily and decrease by 1 tablet every 3rd day Nitrostat (Nitroglycerin) 0.4 Mg Tab.subl 0.4 Mg SL PRN Q5MIN PRN Metoprolol Succinate ( Xl ) (Metoprolol Succinate) 25 Mg Tab.er.24h 25 Mg PO DAILY Amlodipine Besylate 10 Mg Tablet 10 Mg PO DAILY Tylenol (Acetaminophen) 325 Mg Tablet 650 Mg PO PRN Q6HRS PRN [Magnesium Chloride Er] 64 MG Tablet.er 64 Mg PO DAILY Mucinex (Guaifenesin) 600 Mg Tablet.er 600 Mg PO BID Daliresp (Roflumilast) 500 Mcg Tablet 500 Mcg PO DAILY Culturelle (Lactobacillus Rhamnosus Gg) 1 Each Cap.sprink 1 Cap PO BID 7 Days Zosyn 2.25 Gram Vial (Piperacillin Sodium/Tazobactam) 2.25 Gm Vial 1 Each MC PRN DAILY PRN 7 Days Albuterol Sulfate Conc Neb Soln (Albuterol Sulfate) 2.5 Mg/0.5 Ml Vial.neb 1 Vial NEB Q4HRS PRN Nexium Capsule (Esomeprazole Magnesium) 20 Mg Capsule.dr 1 Cap PO DAILY Duoneb 0.5-3(2.5) Mg/3 Ml (Albuterol/Ipratropium) 3 Ml Ampul.neb 3 Ml NEB RTQID Reported Aspir-Low (Aspirin) 81 Mg Tablet.dr 1 Tab PO DAILY LAST DOSE GIVEN: DATE: TODAY TIME: AM NEXT DOSE DUE: DATE: TOMORROW TIME: AM Atorvastatin Calcium 40 Mg Tablet 1 Tab PO HS LAST DOSE GIVEN: DATE: YESTERDAY TIME: AT BEDTIME NEXT DOSE DUE: DATE: TODAY TIME: AT BEDTIME I have reviewed the current psychotropics carefully including drug interactions. Risk benefit ratio favors no change other than as noted in my dictated progress note. Diagnosis: Problems: (1) Dementia, vascular, with depression (2) Mental status change (3) Major depressive disorder, recurrent episode (4) Impulse control disorder (5) Anxiety disorder MICHAEL GALLEGOS MD Apr 07, 2018 18:18
[2018-04-07] MEDS ORDERED: ELECTROLYTE (NON-ICU) PROTOCOL MC PRN (18:30)
[2018-04-07] MEDS ORDERED: POTASSIUM CHLORIDE 20 MEQ TABLET.ER. PO ONE (18:30)
[2018-04-07 19:20] VITALS: BP 118/65
[2018-04-07] MEDS: ATORVASTATIN CALCIUM 20 MG TABLET PO SCH (20:09)
[2018-04-07 22:31] VITALS: BP 134/73
--- NOTE | 2018-04-08 01:10 | PN ---
DATE: SUBJECTIVE: The patient is resting fairly comfortably. The patient was admitted with change in mental status, seems to be a little bit more appropriate than she has been. The patient otherwise seems to be breathing a little bit easier. Denies chest pain, shortness of breath. PHYSICAL EXAMINATION: VITAL SIGNS: Presently, blood pressure 124/70, respiratory rate 18, pulse 74, afebrile. GENERAL: The patient is alert and oriented. Lungs baseline for her. She is a little bit confused, but more alert than she has been. LUNGS: Are diminished, but clear. CARDIOVASCULAR: Regular sinus rhythm. ABDOMEN: Soft, nontender, no rebound or guarding. Positive bowel sounds. No hepatosplenomegaly. NEUROLOGIC: The patient is alert. LABORATORY DATA: Potassium is a little bit low at 11. B12, folate normal, so was her thyroid. Potassium was low as noted and will need to be monitored carefully on there, placed her on electrolyte replacement. The patient's urine culture is still pending, shows no growth, but she is on antibiotics for a previous history of pneumonia. IMPRESSION: Change in mental status, history of pneumonia. PLAN: Continue to monitor the patient, accordingly make further evaluation on her as indicated. CORINNA DIANE MD DR: BRADY/olivia JOB#: [id number] / [id number]
[2018-04-08] MEDS: IV RINGERS SOLUTION,LACTATED 1,000 ML IV SCH ×3 (02:30→15:00)
[2018-04-08] MEDS: PIPERACILLIN/TAZOBACTAM 2.25 GM in IV NORMAL SALINE 50ML 50 ML IV SCH ×3 (05:38→20:36)
[2018-04-08 05:39] VITALS: BP 140/76
[2018-04-08 07:10] LABS: CALCIUM 8.4 mg/dL (8.5-10.1); CREATININE 0.9 mg/dL (0.6-1.0); GFR 61.4; POTASSIUM 3.5 mmol/L (3.5-5.1)
[2018-04-08] MEDS: CIPROFLOXACIN HCL 500 MG TABLET PO SCH ×2 (10:26→20:35)
[2018-04-08] MEDS: PANTOPRAZOLE 40 MG TABLET. PO SCH (10:26)
[2018-04-08] MEDS: LACTOBACILLUS RHAMNOSUS GG 1 CAPSULE. PO SCH ×2 (10:26→20:35)
[2018-04-08] MEDS: amLODIPine BESYLATE 10 MG TABLET PO SCH (10:26)
[2018-04-08] MEDS: ROFLUMILAST 500 MCG TABLET PO SCH (10:27)
[2018-04-08] MEDS: MAGNESIUM CHLORIDE ER 64 MG TABLET.ER PO SCH (10:27)
[2018-04-08] MEDS: METOPROLOL SUCC 24HR ER 25 MG TAB.ER.24H. PO SCH (10:27)
[2018-04-08] MEDS: ASPIRIN ENTERIC COATED 81 MG TABLET.DR. PO SCH (10:27)
[2018-04-08 11:02] VITALS: BP 105/67
[2018-04-08 14:36] VITALS: BP 117/72
[2018-04-08] MEDS: ACETAMINOPHEN 325 MG TABLET PO PRN (18:15)
[2018-04-08 19:19] VITALS: BP 116/73
--- NOTE | 2018-04-08 20:31 | DS ---
DATE OF DISCHARGE: 04/08/2018 HOSPITAL COURSE: A 72-year-old female came in again through the Emergency Room. The patient came in with generalized weakness and difficulty in mobilization. The patient generally forgetful and had some neurocognitive disorders. She was also seen by Dr. Bautista , [facility] psychiatrist. The patient made good progress during the rest of her hospitalization. She was discharged home and followed up as an outpatient. She will be continued to be monitored carefully by home health and make further assessment on her as indicated. The patient was kept on antibiotics because of her previous history of pneumonia and she will be discharged home, follow up as an outpatient, regular diet, decreased activity, and make further assessment on her as indicated. IMPRESSION: Therefore, pneumonia, generalized weakness, mild dementia. DISCHARGE INSTRUCTIONS: She will be on a regular diet, decreased activity, and she will be monitored carefully by home health. CORINNA DIANE MD DR: BRADY/olivia JOB#: [id number] / [id number]
[2018-04-08] MEDS: ATORVASTATIN CALCIUM 20 MG TABLET PO SCH (20:35)
[2018-04-08 22:11] VITALS: BP 106/66
--- NOTE | 2018-04-08 22:26 | PDOC ---
Exam Note: Tee Note: Please also refer to the separate dictated note~for this date of service dictated separately.~Patient seen individually. Discussed the patient with Nursing staff reviewed the chart.~Reviewed interim history and current functioning. Reviewed vital signs,~Labs/ Radiology~and current medications noted below. Continue current treatment with the changes noted in the dictated addendum note. This is a late entry for March Assessment: Vital Signs: VS - Last 72 Hours, by Label Date Time Temp Pulse Resp B/P (MAP) Pulse Ox O2 Delivery O2 Flow Rate FiO2 04/08/18 22:11 98.2 81 20 106/66 (79) 94 Nasal Cannula 1.0 04/08/18 19:25 Nasal Cannula 2.0 04/08/18 19:19 97.6 77 18 116/73 (87) 94 Nasal Cannula 1.0 04/08/18 14:36 98.2 88 18 117/72 (87) 93 Nasal Cannula 1.0 04/08/18 11:02 97.3 85 18 105/67 (80) 95 Nasal Cannula 1.0 04/08/18 10:27 76 140/76 04/08/18 10:26 76 140/76 04/08/18 08:00 Nasal Cannula 2.0 04/08/18 05:39 97.9 76 20 140/76 (97) 97 Nasal Cannula 1.0 04/07/18 22:31 98.2 78 18 134/73 (93) 97 Nasal Cannula 1.0 04/07/18 19:20 Nasal Cannula 2.0 04/07/18 19:20 97.6 79 20 118/65 (82) 97 Nasal Cannula 1.0 04/07/18 15:29 97.8 77 18 131/76 (94) 96 Nasal Cannula 1.0 04/07/18 11:17 97.4 74 18 124/71 (88) 96 Nasal Cannula 1.0 04/07/18 08:10 75 136/73 04/07/18 08:10 75 136/73 04/07/18 07:33 Nasal Cannula 2.0 04/07/18 05:16 98.2 75 18 136/73 (94) 95 Nasal Cannula 04/06/18 22:26 98.1 74 18 121/77 (92) 98 Nasal Cannula 04/06/18 20:00 Nasal Cannula 2.0 04/06/18 19:51 97.4 79 16 117/65 (82) 97 Nasal Cannula 2.0 04/06/18 14:42 97.3 78 20 122/66 (84) 97 Room Air 04/06/18 11:09 98.3 94 20 128/72 (90) 91 Nasal Cannula 1.0 04/06/18 10:13 91 148/69 04/06/18 10:13 91 148/69 04/06/18 08:00 Nasal Cannula 2.0 04/06/18 06:21 97.9 91 18 148/69 (95) 94 Room Air 04/06/18 03:25 Nasal Cannula 2.0 04/06/18 01:43 98.0 96 20 133/68 (89) 97 Room Air 04/06/18 01:05 95 22 146/80 (102) 99 Nasal Cannula 3.0 04/06/18 00:35 100 22 157/80 (105) 100 Nasal Cannula 3.0 04/06/18 00:05 98 21 150/87 (108) 99 Nasal Cannula 3.0 04/05/18 23:35 101 20 162/81 (108) 98 Nasal Cannula 3.0 04/05/18 23:05 110 26 156/80 (105) 99 Nasal Cannula 3.0 04/05/18 22:35 110 26 144/80 (101) 99 Nasal Cannula 3.0 Vital Signs Date Time Temp Pulse Resp B/P (MAP) Pulse Ox O2 Delivery O2 Flow Rate FiO2 04/08/18 22:11 98.2 81 20 106/66 (79) 94 Nasal Cannula 1.0 I&O Intake and Output 04/08/18 07:00 Intake Total 4828 ml Balance 4828 ml Intake Oral 1860 ml IV Total 2968 ml # Voids 5 # Bowel Movements 3 Labs: Laboratory Tests Test 04/08/18 06:02 Sodium Level 144 mmol/L (136-145) Potassium Level 3.5 mmol/L (3.5-5.1) Chloride Level 107 mmol/L (98-107) Carbon Dioxide Level 32 mmol/L (21-32) Anion Gap 5 (6-14) L Blood Urea Nitrogen 2 mg/dL (7-20) L Creatinine 0.9 mg/dL (0.6-1.0) Estimated GFR (Cockcroft-Gault) 61.4 Glucose Level 93 mg/dL (70-99) Calcium Level 8.4 mg/dL (8.5-10.1) L Current Medications: Meds: Current Medications Ceftriaxone Sodium 1 gm/ Sodium Chloride 50 ml @ 100 mls/hr 1X ONCE IV Last administered on 04/06/18at 00:55; Start 04/05/18 at 22:30; Stop 04/05/18 at 22:59 ; Status DC Ceftriaxone Sodium 1 gm/ Sodium Chloride 50 ml @ 100 mls/hr DAILY IV Last administered on 04/06/18at 11:09; Start 04/06/18 at 09:00; Stop 04/06/18 at 13:00 ; Status DC Lactated Ringer's 1,000 ml @ 160 mls/hr Q6H15M IV Last administered on at 12:55; Start 04/06/18 at 00:30 Acetaminophen (Tylenol) 650 mg PRN Q6HRS PRN PO PAIN / TEMP Last administered on 04/06/18at 02:52; Start 04/06/18 at 02:30; Stop 04/06/18 at 10:17; Status DC Info (Non-Icu Electrolyte Protocol) 1 ea CONT PRN PRN MC PER PROTOCOL; Start at 09:00 Acetaminophen (Tylenol) 650 mg PRN Q6HRS PRN PO PAIN / TEMP Last administered on 04/08/18at 18:15; Start 04/06/18 at 09:15 Lactobacillus Rhamnosus (Culturelle) 1 cap BID PO Last administered on at 20:35; Start 04/06/18 at 09:30 Metoprolol Succinate (Toprol Xl) 25 mg DAILY PO Last administered on 04/08/18at 10:27; Start 04/06/18 at 09:30 Nitroglycerin (Nitrostat) 0.4 mg PRN Q5MIN PRN SL CHEST PAIN; Start 04/06/18 at 09:15 Amlodipine Besylate (Norvasc) 10 mg DAILY PO Last administered on 04/08/18at 10: 26; Start 04/06/18 at 09:30 Aspirin (Aspirin Enteric Coated) 81 mg DAILYWBKFT PO Last administered on at 10:27; Start 04/06/18 at 09:30 Pantoprazole Sodium (Protonix) 40 mg DAILYAC PO Last administered on 04/08/18 10:26; Start 04/06/18 at 09:30 Roflumilast (Daliresp) 500 mcg DAILY PO Last administered on 04/08/18 10:27; Start 04/06/18 at 09:30 Magnesium Chloride (Mag Delay) 64 mg DAILY PO Last administered on 04/08/18 10 :27; Start 04/06/18 at 09:30 Atorvastatin Calcium (Lipitor) 40 mg QHS PO Last administered on 04/08/18at 20: 35; Start 04/06/18 at 21:00 Ceftriaxone Sodium (Rocephin) 1 gm DAILY IVP Last administered on 04/07/18 08: 09; Start 04/07/18 at 09:00; Stop 04/07/18 at 10:19; Status DC Ciprofloxacin (Cipro) 500 mg BID PO Last administered on 04/08/18at 20:35; Start 04/07/18 at 11:00 Piperacillin Sod/ Tazobactam Sod 2.25 gm/Sodium Chloride 50 ml @ 100 mls/hr Q8H IV Last administered on 04/08/18at 20:36; Start 04/07/18 at 14:00 Info (Non-Icu Electrolyte Protocol) 1 ea CONT PRN PRN MC PER PROTOCOL; Start at 18:30 Potassium Chloride (Klor-Con) 40 meq 1X ONCE PO Last administered on at 20:09; Start 04/07/18 at 18:30; Stop 04/07/18 at 18:32; Status DC Active Scripts Active Cipro (Ciprofloxacin Hcl) 500 Mg Tablet 1 Tab PO BID Prednisone 1 Mg Tablet 5 Mg PO DAILY Take 4 tablets daily and decrease by 1 tablet every 3rd day Nitrostat (Nitroglycerin) 0.4 Mg Tab.subl 0.4 Mg SL PRN Q5MIN PRN Metoprolol Succinate ( Xl ) (Metoprolol Succinate) 25 Mg Tab.er.24h 25 Mg PO DAILY Amlodipine Besylate 10 Mg Tablet 10 Mg PO DAILY Tylenol (Acetaminophen) 325 Mg Tablet 650 Mg PO PRN Q6HRS PRN [Magnesium Chloride Er] 64 MG Tablet.er 64 Mg PO DAILY Mucinex (Guaifenesin) 600 Mg Tablet.er 600 Mg PO BID Daliresp (Roflumilast) 500 Mcg Tablet 500 Mcg PO DAILY Culturelle (Lactobacillus Rhamnosus Gg) 1 Each Cap.sprink 1 Cap PO BID 7 Days Zosyn 2.25 Gram Vial (Piperacillin Sodium/Tazobactam) 2.25 Gm Vial 1 Each MC PRN DAILY PRN 7 Days Albuterol Sulfate Conc Neb Soln (Albuterol Sulfate) 2.5 Mg/0.5 Ml Vial.neb 1 Vial NEB Q4HRS PRN Nexium Capsule (Esomeprazole Magnesium) 20 Mg Capsule. 1 Cap PO DAILY Duoneb 0.5-3(2.5) Mg/3 Ml (Albuterol/Ipratropium) 3 Ml Ampul.neb 3 Ml NEB RTQID Reported Aspir-Low (Aspirin) 81 Mg Tablet. 1 Tab PO DAILY LAST DOSE GIVEN: DATE: TODAY TIME: AM NEXT DOSE DUE: DATE: TOMORROW TIME: AM Atorvastatin Calcium 40 Mg Tablet 1 Tab PO HS LAST DOSE GIVEN: DATE: YESTERDAY TIME: AT BEDTIME NEXT DOSE DUE: DATE: TODAY TIME: AT BEDTIME I have reviewed the current psychotropics carefully including drug interactions. Risk benefit ratio favors no change other than as noted in my dictated progress note. Diagnosis: Problems: (1) Dementia, vascular, with depression (2) Major depressive disorder, recurrent episode (3) Impulse control disorder (4) Anxiety disorder MICHAEL GALLEGOS MD Apr 08, 2018 22:26
--- NOTE | 2018-04-08 22:26 | PN ---
DATE: 04/08/2018 SUBJECTIVE: The patient denies any new medical or neurological complaints. OBJECTIVE: GENERAL: Well-developed, well-nourished female, not in acute distress. VITAL SIGNS: Blood pressure 140/76, respiratory rate 20, pulse is 76, temperature 97.9, oxygen saturation is 97% on 1 liter by nasal cannula. HEENT: Normocephalic, atraumatic, otherwise unremarkable. NECK: Supple. Negative for carotid bruit, lymphadenopathy or thyromegaly or JVD. LUNGS: Clear to A and P. CARDIOVASCULAR: Regular rate and rhythm, normal S1, S2. There is no S3, S4 or murmur. ABDOMEN: Soft. Bowel sounds positive. EXTREMITIES: Negative for cyanosis, clubbing, or pitting edema. NEUROLOGIC: Mental status: The patient is alert and oriented x 3. Speech is fluent. There is no language dysfunction. The patient recalls 2/3 immediately and 1/3 after 1 and 3 minutes. Judgment and abstract thinking are fair. The patient denies any hallucination or delusion. Cranial nerves are intact. No focal motor or sensory deficit. Deep tendon reflexes are symmetric and hypoactive with absent Achilles response. Gait: The patient's stance is unsteady. She uses a walker for ambulation. IMPRESSION: 1. Acute encephalopathy, rule out urosepsis versus systemic infections. 2. Multiple medical problems include hypertension, hyperlipidemia, coronary artery disease, diabetes mellitus and gastroesophageal reflux disease. 3. Possible early dementia, with normal vitamin B12, vitamin D and a thyroid profile and nonreactive RPR. 4. Questionable normal pressure hydrocephalus. RECOMMENDATIONS: 1. Continue with current management initiated by Dr. Salinas for systemic infections. 2. Physical therapy as tolerated. M Kaur PIERCE MD DR: JASON/olivia JOB#: [id number] / [id number]
--- NOTE | 2018-04-08 22:27 | PDOC ---
Exam Note: Tee Note: Please also refer to the separate dictated note~for this date of service dictated separately.~Patient seen individually. Discussed the patient with Nursing staff reviewed the chart.~Reviewed interim history and current functioning. Reviewed vital signs,~Labs/ Radiology~and current medications noted below. Continue current treatment with the changes noted in the dictated addendum note Assessment: Vital Signs: Vital Signs Date Time Temp Pulse Resp B/P (MAP) Pulse Ox O2 Delivery O2 Flow Rate FiO2 04/08/18 22:11 98.2 81 20 106/66 (79) 94 Nasal Cannula 1.0 I&O Intake and Output 04/08/18 07:00 Intake Total 4828 ml Balance 4828 ml Intake Oral 1860 ml IV Total 2968 ml # Voids 5 # Bowel Movements 3 Labs: Laboratory Tests Test 04/08/18 06:02 Sodium Level 144 mmol/L (136-145) Potassium Level 3.5 mmol/L (3.5-5.1) Chloride Level 107 mmol/L (98-107) Carbon Dioxide Level 32 mmol/L (21-32) Anion Gap 5 (6-14) L Blood Urea Nitrogen 2 mg/dL (7-20) L Creatinine 0.9 mg/dL (0.6-1.0) Estimated GFR (Cockcroft-Gault) 61.4 Glucose Level 93 mg/dL (70-99) Calcium Level 8.4 mg/dL (8.5-10.1) L Current Medications: Meds: Current Medications Ceftriaxone Sodium 1 gm/ Sodium Chloride 50 ml @ 100 mls/hr 1X ONCE IV Last administered on 04/06/18at 00:55; Start 04/05/18 at 22:30; Stop 04/05/18 at 22:59 ; Status DC Ceftriaxone Sodium 1 gm/ Sodium Chloride 50 ml @ 100 mls/hr DAILY IV Last administered on 04/06/18at 11:09; Start 04/06/18 at 09:00; Stop 04/06/18 at 13:00 ; Status DC Lactated Ringer's 1,000 ml @ 160 mls/hr Q6H15M IV Last administered on at 12:55; Start 04/06/18 at 00:30 Acetaminophen (Tylenol) 650 mg PRN Q6HRS PRN PO PAIN / TEMP Last administered on 04/06/18at 02:52; Start 04/06/18 at 02:30; Stop 04/06/18 at 10:17; Status DC Info (Non-Icu Electrolyte Protocol) 1 ea CONT PRN PRN MC PER PROTOCOL; Start at 09:00 Acetaminophen (Tylenol) 650 mg PRN Q6HRS PRN PO PAIN / TEMP Last administered on 04/08/18 18:15; Start 04/06/18 at 09:15 Lactobacillus Rhamnosus (Culturelle) 1 cap BID PO Last administered on 20:35; Start 04/06/18 at 09:30 Metoprolol Succinate (Toprol Xl) 25 mg DAILY PO Last administered on 04/08/18 10:27; Start 04/06/18 at 09:30 Nitroglycerin (Nitrostat) 0.4 mg PRN Q5MIN PRN SL CHEST PAIN; Start 04/06/18 at 09:15 Amlodipine Besylate (Norvasc) 10 mg DAILY PO Last administered on 04/08/18at 10: 26; Start 04/06/18 at 09:30 Aspirin (Aspirin Enteric Coated) 81 mg DAILYWBKFT PO Last administered on 10:27; Start 04/06/18 at 09:30 Pantoprazole Sodium (Protonix) 40 mg DAILYAC PO Last administered on 04/08/18 10:26; Start 04/06/18 at 09:30 Roflumilast (Daliresp) 500 mcg DAILY PO Last administered on 04/08/18 10:27; Start 04/06/18 at 09:30 Magnesium Chloride (Mag Delay) 64 mg DAILY PO Last administered on 04/08/18at 10 :27; Start 04/06/18 at 09:30 Atorvastatin Calcium (Lipitor) 40 mg QHS PO Last administered on 04/08/18 20: 35; Start 04/06/18 at 21:00 Ceftriaxone Sodium (Rocephin) 1 gm DAILY IVP Last administered on 04/07/18at 08: 09; Start 04/07/18 at 09:00; Stop 04/07/18 at 10:19; Status DC Ciprofloxacin (Cipro) 500 mg BID PO Last administered on 04/08/18at 20:35; Start 04/07/18 at 11:00 Piperacillin Sod/ Tazobactam Sod 2.25 gm/Sodium Chloride 50 ml @ 100 mls/hr Q8H IV Last administered on 04/08/18at 20:36; Start 04/07/18 at 14:00 Info (Non-Icu Electrolyte Protocol) 1 ea CONT PRN PRN MC PER PROTOCOL; Start at 18:30 Potassium Chloride (Klor-Con) 40 meq 1X ONCE PO Last administered on at 20:09; Start 04/07/18 at 18:30; Stop 04/07/18 at 18:32; Status DC Active Scripts Active Cipro (Ciprofloxacin Hcl) 500 Mg Tablet 1 Tab PO BID Prednisone 1 Mg Tablet 5 Mg PO DAILY Take 4 tablets daily and decrease by 1 tablet every 3rd day Nitrostat (Nitroglycerin) 0.4 Mg Tab.subl 0.4 Mg SL PRN Q5MIN PRN Metoprolol Succinate ( Xl ) (Metoprolol Succinate) 25 Mg Tab.er.24h 25 Mg PO DAILY Amlodipine Besylate 10 Mg Tablet 10 Mg PO DAILY Tylenol (Acetaminophen) 325 Mg Tablet 650 Mg PO PRN Q6HRS PRN [Magnesium Chloride Er] 64 MG Tablet.er 64 Mg PO DAILY Mucinex (Guaifenesin) 600 Mg Tablet.er 600 Mg PO BID Daliresp (Roflumilast) 500 Mcg Tablet 500 Mcg PO DAILY Culturelle (Lactobacillus Rhamnosus Gg) 1 Each Cap.sprink 1 Cap PO BID 7 Days Zosyn 2.25 Gram Vial (Piperacillin Sodium/Tazobactam) 2.25 Gm Vial 1 Each MC PRN DAILY PRN 7 Days Albuterol Sulfate Conc Neb Soln (Albuterol Sulfate) 2.5 Mg/0.5 Ml Vial.neb 1 Vial NEB Q4HRS PRN Nexium Capsule (Esomeprazole Magnesium) 20 Mg Capsule. 1 Cap PO DAILY Duoneb 0.5-3(2.5) Mg/3 Ml (Albuterol/Ipratropium) 3 Ml Ampul.neb 3 Ml NEB RTQID Reported Aspir-Low (Aspirin) 81 Mg Tablet. 1 Tab PO DAILY LAST DOSE GIVEN: DATE: TODAY TIME: AM NEXT DOSE DUE: DATE: TOMORROW TIME: AM Atorvastatin Calcium 40 Mg Tablet 1 Tab PO HS LAST DOSE GIVEN: DATE: YESTERDAY TIME: AT BEDTIME NEXT DOSE DUE: DATE: TODAY TIME: AT BEDTIME I have reviewed the current psychotropics carefully including drug interactions. Risk benefit ratio favors no change other than as noted in my dictated progress note. Diagnosis: Problems: (1) Dementia, vascular, with depression (2) Major depressive disorder, recurrent episode (3) Impulse control disorder (4) Anxiety disorder MICHAEL GALLEGOS MD Apr 08, 2018 22:27
--- NOTE | 2018-04-08 23:57 | PN ---
DATE: 04/08/2018 SUBJECTIVE: The patient came in with change in mental status. She is doing somewhat better, making fairly good progress overall. The patient will continue to be treated appropriately with IV antibiotic therapy as there is a potential for recurrent pneumonic process with her history thereof and she is needing respiratory therapy as well. The patient is making relatively good progress. OBJECTIVE: VITAL SIGNS: Her last vital signs 116/70, respiratory rate 18, pulse 70, afebrile, oxygen saturation on 1 liter. The patient; otherwise, is making good progress. She has also been seen by Dr. Turk for acute encephalopathy and also Dr. Bautista, psychiatry. IMPRESSION: Acute encephalopathy, multiple medical problems, hypertension, hyperlipidemia, coronary artery disease, possible pneumonia, dementia. PLAN: Continue present therapy and hopefully ready for discharge here soon with PT, OT. CORINNA DIANE MD DR: BRADY/olivia JOB#: [id number] / [id number]
[2018-04-09] MEDS: IV RINGERS SOLUTION,LACTATED 1,000 ML IV SCH ×3 (00:08→22:15)
--- NOTE | 2018-04-09 00:52 | CONS ---
DATE OF CONSULTATION: 04/06/2018 IDENTIFYING DATA: The patient is a 72-year-old female seen in the evening of 04/06/2018 for a psychiatric consult, requested by Dr. Salinas on account of the patient's confusion, memory deficits, depression, anxiety and acute mental status changes. The patient was seen individually evening of 04/06/2018. Discussed with nursing staff, reviewed the chart CHIEF COMPLAINT: "Yes, I remember you. No, I don't know who you are." HISTORY OF PRESENT ILLNESS: The patient was discharged from [facility] last week after she was treated for pneumonia and possible UTI. She returns back complaining of progressive memory loss over the past 2 years along with an unsteady gait and frequent falls. She has been using a walker for several years because of unsteadiness. She has been living at home with her son and has not been participating in her ADLs. She has been resistive to cares while assisted by her family, appears increasingly depressed, anxious with significant short-term memory deficits. No clear psychotic symptoms, suicidal or homicidal ideation. CT head had shown generalized cortical atrophy with prominent ventricles, possibility of normal pressure hydrocephalus, chronic small vessel ischemic disease. PAST PSYCHIATRIC HISTORY: As above. PAST MEDICAL HISTORY: Coronary artery disease, hypertension, hyperlipidemia, stroke, diabetes mellitus, arthritis, GERD, chronic obstructive pulmonary disease with exacerbation, status post urinary tract infection, sepsis, early vascular dementia, depression, anxiety. PAST SURGICAL HISTORY: Cholecystectomy, appendectomy. FAMILY HISTORY: Noncontributory. SOCIAL HISTORY: The patient lives at home with her son and family members. No alcohol or drug abuse history. CURRENT PSYCHOTROPICS: Noncontributory. CODE STATUS: Full code. DRUG ALLERGIES: IBUPROFEN. MENTAL STATUS EXAM: The patient was seen individually evening of 04/06/2018. She is oriented to herself, situation, said she remembered me, but I am not sure of that. Speech is coherent, abstraction fair, computation impaired, language function intact. Attention span short. Short-term memory is impaired. No suicidal or homicidal ideation. IMPRESSION: Major depressive disorder, major neurocognitive disorder, early vascular with depression; anxiety disorder, unspecified. Rest as above. RECOMMENDATION: Given some of the patient's mood and anxiety symptoms, it will probably be beneficial for the patient. We started on Wellbutrin-XL 150 mg a day as an antidepressant and to help with her motivation attention, focus and activity level. May need to be increased gradually. An alternative option might have been an SSRI, but perhaps the Wellbutrin should be more activating and beneficial. Dr. Salinas, thank you for the opportunity to participate in your patient's care. We will follow with you. MAN Haider GALLEGOS MD DR: DARRYL/olivia JOB#: [id number] / [id number]
--- NOTE | 2018-04-09 01:00 | PN ---
DATE: 04/07/2018 This late entry 04/07/2018 covers elements not covered in my initial note 04/07/2018. SUBJECTIVE: The patient was seen individually in the evening. Discussed with nursing staff, reviewed the chart. The patient continues to have some short-term memory deficits, frequently bending her and setting off the alarm off the IV. Remains anxious, dysphoric. REVIEW OF SYSTEMS: Ambulation impaired. No CV, , pulmonary, eye system symptoms on review. MENTAL STATUS EXAM: Oriented to herself and situation. Speech has some latency, coherent. Abstraction fair, computation impaired, language function intact. Mood and affect still somewhat withdrawn. IMPRESSION: Major neurocognitive disorder, vascular with depression, major depressive disorder, recurrent; anxiety disorder, unspecified. PLAN: Consider starting Wellbutrin-XL 150 mg a day as an activating antidepressant. Rest unchanged. MAN Haider GALLEGOS MD DR: DARRYL/olivia JOB#: [id number] / [id number]
[2018-04-09] MEDS: PIPERACILLIN/TAZOBACTAM 2.25 GM in IV NORMAL SALINE 50ML 50 ML IV SCH ×3 (05:03→20:52)
[2018-04-09 05:42] VITALS: BP 122/76
--- NOTE | 2018-04-09 05:59 | PN ---
DATE: 04/08/2018 PSYCHIATRIC PROGRESS NOTE This late entry for date of service 04/08/2018 and covers the elements not covered in my initial note. SUBJECTIVE: Per nursing report, the patient remains somewhat withdrawn, anxious, frequently tripping the alarm for the IV, oblivious of what she is doing. She does have short-term memory deficits. MENTAL STATUS EXAM: Oriented to herself and situation. Speech is coherent. Affect is mood congruent. Mood is somewhat dysphoric, anxious, though she minimizes it. No suicidal or homicidal ideation. LABORATORY DATA: Reviewed. IMPRESSION: Major neurocognitive disorder, early vascular with depression; anxiety disorder, unspecified. PLAN: Start Wellbutrin-XL 150 mg in the morning. Given the vasculature nature of her dementia, there will be little benefit for adding a cholinesterase inhibitor. The patient is being discharged home to her family to outpatient followup, but at some point may need a higher level of care than returning home since she has failed functioning at home on at least 2 occasions. MICHAEL GALLEGOS MD DR: DARRYL/olivia JOB#: [id number] / [id number]
[2018-04-09] MEDS: PANTOPRAZOLE 40 MG TABLET. PO SCH (07:39)
[2018-04-09] MEDS: ASPIRIN ENTERIC COATED 81 MG TABLET.DR. PO SCH (07:39)
[2018-04-09] MEDS: LACTOBACILLUS RHAMNOSUS GG 1 CAPSULE. PO SCH ×2 (08:50→20:52)
[2018-04-09] MEDS: ROFLUMILAST 500 MCG TABLET PO SCH (08:50)
[2018-04-09] MEDS: METOPROLOL SUCC 24HR ER 25 MG TAB.ER.24H. PO SCH (08:50)
[2018-04-09] MEDS: amLODIPine BESYLATE 10 MG TABLET PO SCH (08:50)
[2018-04-09] MEDS: MAGNESIUM CHLORIDE ER 64 MG TABLET.ER PO SCH (08:50)
[2018-04-09] MEDS: CIPROFLOXACIN HCL 500 MG TABLET PO SCH ×2 (08:50→20:52)
[2018-04-09] MEDS: buPROPion XL 150 MG TAB.ER.24H PO SCH (08:50)
[2018-04-09 11:00] VITALS: BP 117/74
--- NOTE | 2018-04-09 11:40 | PN ---
DATE: 04/09/2018 SUBJECTIVE: The patient denies any new medical or neurological complaints; however, she appears to be less motivated. She does not like to continue with physical therapy as long as she was asked to stand up, she feels like tired and she wants to go back to bed. However, she is steady on her feet when she uses a walker. She denies chest pain, shortness of breath or palpitation, but she required oxygen as oxygen saturation is around 91. She feels better when oxygen is on. She denies any new complaints. OBJECTIVE: GENERAL: A well-developed, well-nourished female, in no acute distress. VITAL SIGNS: Blood pressure 122/76, respiratory rate 24, pulse is 82 and regular, temperature 98.3, oxygen saturation is 95% on 2 liters via nasal cannula. HEENT: Normocephalic, atraumatic, otherwise unremarkable. NECK: Supple. Negative for carotid bruit, lymphadenopathy, JVD or thyromegaly. LUNGS: With diminished breath sounds. No rales or wheezing. CARDIOVASCULAR: Regular rate and rhythm, normal S1, S2. ABDOMEN: Soft. Bowel sounds positive. EXTREMITIES: Negative for cyanosis, clubbing or pitting edema. NEUROLOGICAL EXAM: Mental Status: The patient is alert and oriented x 3. The speech is fluent. There is no language dysfunction. Memory, judgment, and abstract thinking are fair. The patient denies hallucination or delusion. Cranial nerves are intact. No focal motor or sensory deficit. Deep tendon reflexes were symmetric and hypoactive with absent Achilles responses. Gait: The patient uses a walker for ambulation. IMPRESSION: 1. Acute encephalopathy - improved. 2. Urosepsis versus systemic sepsis. 3. Multiple medical problems include hypertension, hyperlipidemia, coronary artery disease, diabetes mellitus, and gastroesophageal reflux disease. 4. Major depressive disorder. 5. Questionable normal pressure hydrocephalus. RECOMMENDATIONS: Continue with the current management initiated by Dr. Salinas and continue with physical therapy as tolerated. M Kaur PIERCE MD DR: JASON/olivia JOB#: [id number] / [id number]
[2018-04-09 13:00] VITALS: BP 118/72
[2018-04-09 19:23] VITALS: BP 120/69
[2018-04-09] MEDS: ATORVASTATIN CALCIUM 20 MG TABLET PO SCH (20:52)
--- NOTE | 2018-04-09 21:05 | PDOC ---
Exam Note: Tee Note: Please also refer to the separate dictated note~for this date of service dictated separately.~Patient seen individually. Discussed the patient with Nursing staff reviewed the chart.~Reviewed interim history and current functioning. Reviewed vital signs,~Labs/ Radiology~and current medications noted below. Continue current treatment with the changes noted in the dictated addendum note Assessment: Vital Signs: Vital Signs Date Time Temp Pulse Resp B/P (MAP) Pulse Ox O2 Delivery O2 Flow Rate FiO2 04/09/18 19:58 Nasal Cannula 2.0 04/09/18 19:23 98.3 80 22 120/69 (86) 98 I&O Intake and Output 04/09/18 07:00 Intake Total 2948 ml Balance 2948 ml Intake Oral 780 ml IV Total 2168 ml # Voids 6 # Bowel Movements 1 Current Medications: Meds: Current Medications Ceftriaxone Sodium 1 gm/ Sodium Chloride 50 ml @ 100 mls/hr 1X ONCE IV Last administered on 04/06/18at 00:55; Start 04/05/18 at 22:30; Stop 04/05/18 at 22:59 ; Status DC Ceftriaxone Sodium 1 gm/ Sodium Chloride 50 ml @ 100 mls/hr DAILY IV Last administered on 04/06/18at 11:09; Start 04/06/18 at 09:00; Stop 04/06/18 at 13:00 ; Status DC Lactated Ringer's 1,000 ml @ 160 mls/hr Q6H15M IV Last administered on at 16:29; Start 04/06/18 at 00:30 Acetaminophen (Tylenol) 650 mg PRN Q6HRS PRN PO PAIN / TEMP Last administered on 04/06/18at 02:52; Start 04/06/18 at 02:30; Stop 04/06/18 at 10:17; Status DC Info (Non-Icu Electrolyte Protocol) 1 ea CONT PRN PRN MC PER PROTOCOL; Start at 09:00 Acetaminophen (Tylenol) 650 mg PRN Q6HRS PRN PO PAIN / TEMP Last administered on 04/08/18at 18:15; Start 04/06/18 at 09:15 Lactobacillus Rhamnosus (Culturelle) 1 cap BID PO Last administered on at 20:52; Start 04/06/18 at 09:30 Metoprolol Succinate (Toprol Xl) 25 mg DAILY PO Last administered on 04/09/18 08:50; Start 04/06/18 at 09:30 Nitroglycerin (Nitrostat) 0.4 mg PRN Q5MIN PRN SL CHEST PAIN; Start 04/06/18 at 09:15 Amlodipine Besylate (Norvasc) 10 mg DAILY PO Last administered on 04/09/18 08: 50; Start 04/06/18 at 09:30 Aspirin (Aspirin Enteric Coated) 81 mg DAILYWBKFT PO Last administered on 07:39; Start 04/06/18 at 09:30 Pantoprazole Sodium (Protonix) 40 mg DAILYAC PO Last administered on 04/09/18 07:39; Start 04/06/18 at 09:30 Roflumilast (Daliresp) 500 mcg DAILY PO Last administered on 04/09/18 08:50; Start 04/06/18 at 09:30 Magnesium Chloride (Mag Delay) 64 mg DAILY PO Last administered on 04/09/18 08 :50; Start 04/06/18 at 09:30 Atorvastatin Calcium (Lipitor) 40 mg QHS PO Last administered on 04/09/18at 20: 52; Start 04/06/18 at 21:00 Ceftriaxone Sodium (Rocephin) 1 gm DAILY IVP Last administered on 04/07/18 08: 09; Start 04/07/18 at 09:00; Stop 04/07/18 at 10:19; Status DC Ciprofloxacin (Cipro) 500 mg BID PO Last administered on 04/09/18at 20:52; Start 04/07/18 at 11:00 Piperacillin Sod/ Tazobactam Sod 2.25 gm/Sodium Chloride 50 ml @ 100 mls/hr Q8H IV Last administered on 04/09/18at 20:52; Start 04/07/18 at 14:00 Info (Non-Icu Electrolyte Protocol) 1 ea CONT PRN PRN MC PER PROTOCOL; Start at 18:30 Potassium Chloride (Klor-Con) 40 meq 1X ONCE PO Last administered on at 20:09; Start 04/07/18 at 18:30; Stop 04/07/18 at 18:32; Status DC Bupropion HCl (Wellbutrin Xl) 150 mg DAILY PO Last administered on 04/09/18at 08 :50; Start 04/09/18 at 09:00 Sodium Chloride 50 ml @ As Directed STK-MED ONCE .ROUTE ; Start 04/06/18 at 00: 41; Stop 04/09/18 at 17:30; Status DC Ceftriaxone Sodium (Rocephin) 1 gm STK-MED ONCE IV ; Start 04/06/18 at 00:41; Stop 04/09/18 at 17:30; Status DC Active Scripts Active Cipro (Ciprofloxacin Hcl) 500 Mg Tablet 1 Tab PO BID Prednisone 1 Mg Tablet 5 Mg PO DAILY Take 4 tablets daily and decrease by 1 tablet every 3rd day Nitrostat (Nitroglycerin) 0.4 Mg Tab.subl 0.4 Mg SL PRN Q5MIN PRN Metoprolol Succinate ( Xl ) (Metoprolol Succinate) 25 Mg Tab.er.24h 25 Mg PO DAILY Amlodipine Besylate 10 Mg Tablet 10 Mg PO DAILY Tylenol (Acetaminophen) 325 Mg Tablet 650 Mg PO PRN Q6HRS PRN [Magnesium Chloride Er] 64 MG Tablet.er 64 Mg PO DAILY Mucinex (Guaifenesin) 600 Mg Tablet.er 600 Mg PO BID Daliresp (Roflumilast) 500 Mcg Tablet 500 Mcg PO DAILY Culturelle (Lactobacillus Rhamnosus Gg) 1 Each Cap.sprink 1 Cap PO BID 7 Days Zosyn 2.25 Gram Vial (Piperacillin Sodium/Tazobactam) 2.25 Gm Vial 1 Each MC PRN DAILY PRN 7 Days Albuterol Sulfate Conc Neb Soln (Albuterol Sulfate) 2.5 Mg/0.5 Ml Vial.neb 1 Vial NEB Q4HRS PRN Nexium Capsule (Esomeprazole Magnesium) 20 Mg Capsule. 1 Cap PO DAILY Duoneb 0.5-3(2.5) Mg/3 Ml (Albuterol/Ipratropium) 3 Ml Ampul.neb 3 Ml NEB RTQID Reported Aspir-Low (Aspirin) 81 Mg Tablet. 1 Tab PO DAILY LAST DOSE GIVEN: DATE: TODAY TIME: AM NEXT DOSE DUE: DATE: TOMORROW TIME: AM Atorvastatin Calcium 40 Mg Tablet 1 Tab PO HS LAST DOSE GIVEN: DATE: YESTERDAY TIME: AT BEDTIME NEXT DOSE DUE: DATE: TODAY TIME: AT BEDTIME I have reviewed the current psychotropics carefully including drug interactions. Risk benefit ratio favors no change other than as noted in my dictated progress note. Diagnosis: Problems: (1) Major depressive disorder, recurrent episode (2) Impulse control disorder (3) Anxiety disorder (4) Dementia, vascular, with depression MICHAEL GALLEGOS MD Apr 09, 2018 21:05
[2018-04-10] MEDS: IV RINGERS SOLUTION,LACTATED 1,000 ML IV SCH ×3 (03:08→23:15)
[2018-04-10] MEDS: PIPERACILLIN/TAZOBACTAM 2.25 GM in IV NORMAL SALINE 50ML 50 ML IV SCH (05:15)
[2018-04-10 06:07] VITALS: BP 122/73
[2018-04-10] MEDS: MAGNESIUM CHLORIDE ER 64 MG TABLET.ER PO SCH (08:32)
[2018-04-10] MEDS: LACTOBACILLUS RHAMNOSUS GG 1 CAPSULE. PO SCH ×2 (08:32→20:40)
[2018-04-10] MEDS: ASPIRIN ENTERIC COATED 81 MG TABLET.DR. PO SCH (08:32)
[2018-04-10] MEDS: PANTOPRAZOLE 40 MG TABLET. PO SCH (08:32)
[2018-04-10] MEDS: CIPROFLOXACIN HCL 500 MG TABLET PO SCH (08:33)
[2018-04-10] MEDS: amLODIPine BESYLATE 10 MG TABLET PO SCH (08:33)
[2018-04-10] MEDS: METOPROLOL SUCC 24HR ER 25 MG TAB.ER.24H. PO SCH (08:33)
[2018-04-10] MEDS: buPROPion XL 150 MG TAB.ER.24H PO SCH (08:34)
[2018-04-10] MEDS: ROFLUMILAST 500 MCG TABLET PO SCH (08:34)
[2018-04-10] MEDS ORDERED: LOPERAMIDE 2 MG CAPSULE PO PRN (09:30)
--- NOTE | 2018-04-10 10:26 | RAD ---
Chest, 2 views, 04/10/2018: History: Cough, shortness of breath, congestion Comparison is made to a study from 2017. The heart size is normal. There is an unchanged small pulmonary nodule in the right lower chest. No acute infiltrate is seen. There is no evidence of pleural fluid. The lungs are somewhat hyperexpanded. IMPRESSION: No acute cardiopulmonary abnormality is detected.
[2018-04-10 10:35] LABS: BASO # 0.1 x10^3/uL (0.0-0.2); BASO % 1 % (0-3); EOS # 0.3 x10^3/uL (0.0-0.7); EOS % 3 % (0-3); HEMATOCRIT 33.5 % (36.0-47.0); HEMOGLOBIN 11.1 g/dL (12.0-15.5); LYMPH # 1.5 x10^3/uL (1.0-4.8); LYMPH % 16 % (24-48); MEAN CORPUSCULAR HEMOGLOBIN 31 pg (25-35); MEAN CORPUSCULAR HGB CONC 33 g/dL (31-37); MEAN CORPUSCULAR VOLUME 92 fL (79-100); MONO # 0.8 x10^3/uL (0.0-1.1); MONO % 9 % (0-9); NEUT # 6.4 x10^3uL (1.8-7.7); NEUT % 71 % (31-73); PLATELET COUNT 303 x10^3/uL (140-400); RED BLOOD COUNT 3.64 x10^6/uL (3.50-5.40); RED CELL DISTRIBUTION WIDTH 14.9 % (11.5-14.5); WHITE BLOOD COUNT 9.1 x10^3/uL (4.0-11.0)
[2018-04-10 10:36] VITALS: BP 110/67
[2018-04-10 10:43] LABS: CALCIUM 8.4 mg/dL (8.5-10.1); CREATININE 1.1 mg/dL (0.6-1.0); GFR 48.7; POTASSIUM 3.7 mmol/L (3.5-5.1)
--- NOTE | 2018-04-10 14:28 | PN ---
DATE: 04/09/2018 SUBJECTIVE: The patient is resting fairly comfortably, still receiving PT, OT. Still trying to place her into a nursing facility. Otherwise, basically patient has no major complaints. OBJECTIVE: VITAL SIGNS: Blood pressure 138/80, respiratory rate 18, afebrile. GENERAL: The patient is alert. LUNGS: Diminished, but clear than they have been. CARDIOVASCULAR: Regular sinus rhythm. ABDOMEN: Soft, nontender. IMPRESSION: Therefore, generalized weakness, exacerbation of chronic obstructive pulmonary disease. Continue with physical therapy and hopefully placement into a nursing facility as soon as possible. CORINNA DIANE MD DR: BRADY/olivia JOB#: [id number] / [id number]
--- NOTE | 2018-04-10 14:39 | PN ---
DATE: SUBJECTIVE: The patient in with ____ multiple medical problems. In any case, the patient is resting fairly comfortably, making fairly good progress. Continues with physical therapy for her generalized weakness and rehabilitation. The patient been having some diarrhea. We will evaluate that for C. diff. Potassium has come up, making good progress overall. PHYSICAL EXAMINATION: VITAL SIGNS: Therefore 122/70, respiratory rate 18, pulse 80, afebrile. GENERAL: The patient is alert, oriented, not feeling well. LUNGS: Diminished, but clear. CARDIOVASCULAR: Examination is stable. ABDOMEN: Soft, nontender. EXTREMITIES: No clubbing, cyanosis, no edema. NEUROLOGIC: Stable, having some diarrhea. LABORATORY DATA: We will go ahead and get C. diff. IMPRESSION: Acute encephalopathy, generalized weakness, major neurocognitive disorder with early vascular depression, anxiety disorder. CORINNA DIANE MD DR: BRADY/olivia JOB#: [id number] / [id number]
[2018-04-10 15:00] VITALS: BP 104/66
--- NOTE | 2018-04-10 17:43 | PN ---
DATE: 04/10/2018 SUBJECTIVE: The patient denies any new medical or neurological complaints. The patient has been using a walker today for ambulation. OBJECTIVE: GENERAL: A well-developed, well-nourished female, not in acute distress. VITAL SIGNS: Blood pressure 110/67, respiratory rate 20, pulse is 75, temperature 98.6, oxygen saturation 98% on 2 liters by nasal cannula. HEENT: Normocephalic, atraumatic, otherwise unremarkable. NECK: Supple. Negative for carotid bruit, lymphadenopathy or thyromegaly. LUNGS: Clear to A and P. CARDIOVASCULAR: Regular rate and rhythm, normal S1, S2. ABDOMEN: Soft. Bowel sounds positive. EXTREMITIES: Negative for cyanosis, clubbing or pitting edema. NEUROLOGICAL: The patient is alert and oriented x 2. The speech is fluent. There is no language dysfunction. Cranial nerves are intact. No focal, motor or sensory deficit. Deep tendon reflexes were symmetric and hypoactive with absent Achilles responses. Gait: The patient uses a walker for ambulation. LABORATORY DATA: CBC revealed white blood cells of 9100, hemoglobin 11.1, hematocrit 33.5, platelet count 303,000. Chemistry revealed sodium of 142, potassium 3.7, chloride 107, CO2 33, BUN 2, creatinine 1.1, glucose is 138, and calcium 8.4. IMPRESSION: 1. Acute encephalopathy - resolved. 2. Major depression and possible early dementia. 3. Multiple medical problems include hypertension, hyperlipidemia, coronary artery disease, diabetes mellitus, and gastroesophageal reflux disease. RECOMMENDATIONS: Continue with the current management initiated by Dr. Salinas and physical therapy as tolerated. M Kaur PIERCE MD DR: JASON/olivia JOB#: [id number] / [id number]
[2018-04-10 18:33] VITALS: BP 147/72
--- NOTE | 2018-04-10 18:36 | PN ---
DATE: 04/09/2018 This is a late entry, 04/09/2018, covers the elements not covered in my initial note. SUBJECTIVE: I met with the patient in the evening of 04/09/2018. Discussed with the nursing staff. The patient continues to be somewhat anxious with mood lability and some short-term memory deficits. REVIEW OF SYSTEMS: No CV, , pulmonary, eye system symptoms on review. MENTAL STATUS EXAM: Oriented to herself and situation. Speech has some latency, coherent. Short term memory is impaired. No active suicidal or homicidal ideation. LABORATORY DATA: Reviewed. IMPRESSION: Unchanged from initial note. PLAN: No change from a psychiatric standpoint, continue psychotropics as mentioned in my initial note. The patient can probably needs placement in a more structured setting than returning home, which is where she has failed several times. MAN Haider GALLEGOS MD DR: DARRYL/olivia JOB#: [id number] / [id number]
[2018-04-10] MEDS: ACETAMINOPHEN 325 MG TABLET PO PRN (19:27)
--- NOTE | 2018-04-10 20:09 | PDOC ---
Exam Note: Tee Note: Please also refer to the separate dictated note~for this date of service dictated separately.~Patient seen individually. Discussed the patient with Nursing staff reviewed the chart.~Reviewed interim history and current functioning. Reviewed vital signs,~Labs/ Radiology~and current medications noted below. Continue current treatment with the changes noted in the dictated addendum note Assessment: Vital Signs: Vital Signs Date Time Temp Pulse Resp B/P (MAP) Pulse Ox O2 Delivery O2 Flow Rate FiO2 04/10/18 19:36 Nasal Cannula 2.0 04/10/18 18:33 97.6 85 20 147/72 (97) 93 I&O Intake and Output 04/10/18 07:00 Intake Total 1010 ml Balance 1010 ml Intake Oral 960 ml IV Total 50 ml # Voids 5 # Bowel Movements 2 Labs: Laboratory Tests Test 04/10/18 10:30 White Blood Count 9.1 x10^3/uL (4.0-11.0) Red Blood Count 3.64 x10^6/uL (3.50-5.40) Hemoglobin 11.1 g/dL (12.0-15.5) L Hematocrit 33.5 % (36.0-47.0) L Mean Corpuscular Volume 92 fL (79-100) Mean Corpuscular Hemoglobin 31 pg (25-35) Mean Corpuscular Hemoglobin Concent 33 g/dL (31-37) Red Cell Distribution Width 14.9 % (11.5-14.5) H Platelet Count 303 x10^3/uL (140-400) Neutrophils (%) (Auto) 71 % (31-73) Lymphocytes (%) (Auto) 16 % (24-48) L Monocytes (%) (Auto) 9 % (0-9) Eosinophils (%) (Auto) 3 % (0-3) Basophils (%) (Auto) 1 % (0-3) Neutrophils # (Auto) 6.4 x10^3uL (1.8-7.7) Lymphocytes # (Auto) 1.5 x10^3/uL (1.0-4.8) Monocytes # (Auto) 0.8 x10^3/uL (0.0-1.1) Eosinophils # (Auto) 0.3 x10^3/uL (0.0-0.7) Basophils # (Auto) 0.1 x10^3/uL (0.0-0.2) Sodium Level 142 mmol/L (136-145) Potassium Level 3.7 mmol/L (3.5-5.1) Chloride Level 107 mmol/L (98-107) Carbon Dioxide Level 33 mmol/L (21-32) H Anion Gap 2 (6-14) L Blood Urea Nitrogen 2 mg/dL (7-20) L Creatinine 1.1 mg/dL (0.6-1.0) H Estimated GFR (Cockcroft-Gault) 48.7 Glucose Level 138 mg/dL (70-99) H Calcium Level 8.4 mg/dL (8.5-10.1) L Current Medications: Meds: Current Medications Ceftriaxone Sodium 1 gm/ Sodium Chloride 50 ml @ 100 mls/hr 1X ONCE IV Last administered on 04/06/18at 00:55; Start 04/05/18 at 22:30; Stop 04/05/18 at 22:59 ; Status DC Ceftriaxone Sodium 1 gm/ Sodium Chloride 50 ml @ 100 mls/hr DAILY IV Last administered on 04/06/18at 11:09; Start 04/06/18 at 09:00; Stop 04/06/18 at 13:00 ; Status DC Lactated Ringer's 1,000 ml @ 160 mls/hr Q6H15M IV Last administered on at 17:55; Start 04/06/18 at 00:30 Acetaminophen (Tylenol) 650 mg PRN Q6HRS PRN PO PAIN / TEMP Last administered on 04/06/18at 02:52; Start 04/06/18 at 02:30; Stop 04/06/18 at 10:17; Status DC Info (Non-Icu Electrolyte Protocol) 1 ea CONT PRN PRN MC PER PROTOCOL; Start at 09:00; Stop 04/10/18 at 09:29; Status DC Acetaminophen (Tylenol) 650 mg PRN Q6HRS PRN PO PAIN / TEMP Last administered on 04/10/18at 19:27; Start 04/06/18 at 09:15 Lactobacillus Rhamnosus (Culturelle) 1 cap BID PO Last administered on at 08:32; Start 04/06/18 at 09:30 Metoprolol Succinate (Toprol Xl) 25 mg DAILY PO Last administered on 04/10/18 08:33; Start 04/06/18 at 09:30 Nitroglycerin (Nitrostat) 0.4 mg PRN Q5MIN PRN SL CHEST PAIN; Start 04/06/18 at 09:15 Amlodipine Besylate (Norvasc) 10 mg DAILY PO Last administered on 04/10/18 08: 33; Start 04/06/18 at 09:30 Aspirin (Aspirin Enteric Coated) 81 mg DAILYWBKFT PO Last administered on 08:32; Start 04/06/18 at 09:30 Pantoprazole Sodium (Protonix) 40 mg DAILYAC PO Last administered on 04/10/18 08:32; Start 04/06/18 at 09:30 Roflumilast (Daliresp) 500 mcg DAILY PO Last administered on 04/10/18 08:34; Start 04/06/18 at 09:30 Magnesium Chloride (Mag Delay) 64 mg DAILY PO Last administered on 04/10/18 08 :32; Start 04/06/18 at 09:30 Atorvastatin Calcium (Lipitor) 40 mg QHS PO Last administered on 04/09/18at 20: 52; Start 04/06/18 at 21:00 Ceftriaxone Sodium (Rocephin) 1 gm DAILY IVP Last administered on 04/07/18 08: 09; Start 04/07/18 at 09:00; Stop 04/07/18 at 10:19; Status DC Ciprofloxacin (Cipro) 500 mg BID PO Last administered on 04/10/18 08:33; Start 04/07/18 at 11:00; Stop 04/10/18 at 09:27; Status DC Piperacillin Sod/ Tazobactam Sod 2.25 gm/Sodium Chloride 50 ml @ 100 mls/hr Q8H IV Last administered on 04/10/18at 05:15; Start 04/07/18 at 14:00; Stop at 09:27; Status DC Info (Non-Icu Electrolyte Protocol) 1 ea CONT PRN PRN MC PER PROTOCOL; Start at 18:30 Potassium Chloride (Klor-Con) 40 meq 1X ONCE PO Last administered on at 20:09; Start 04/07/18 at 18:30; Stop 04/07/18 at 18:32; Status DC Bupropion HCl (Wellbutrin Xl) 150 mg DAILY PO Last administered on 04/10/18at 08 :34; Start 04/09/18 at 09:00 Sodium Chloride 50 ml @ As Directed STK-MED ONCE .ROUTE ; Start 04/06/18 at 00: 41; Stop 04/09/18 at 17:30; Status DC Ceftriaxone Sodium (Rocephin) 1 gm STK-MED ONCE IV ; Start 04/06/18 at 00:41; Stop 04/09/18 at 17:30; Status DC Loperamide HCl (Imodium) 2 mg PRN QID PRN PO diarrhea; Start 04/10/18 at 09:30 Active Scripts Active Cipro (Ciprofloxacin Hcl) 500 Mg Tablet 1 Tab PO BID Prednisone 1 Mg Tablet 5 Mg PO DAILY Take 4 tablets daily and decrease by 1 tablet every 3rd day Nitrostat (Nitroglycerin) 0.4 Mg Tab.subl 0.4 Mg SL PRN Q5MIN PRN Metoprolol Succinate ( Xl ) (Metoprolol Succinate) 25 Mg Tab.er.24h 25 Mg PO DAILY Amlodipine Besylate 10 Mg Tablet 10 Mg PO DAILY Tylenol (Acetaminophen) 325 Mg Tablet 650 Mg PO PRN Q6HRS PRN [Magnesium Chloride Er] 64 MG Tablet.er 64 Mg PO DAILY Mucinex (Guaifenesin) 600 Mg Tablet.er 600 Mg PO BID Daliresp (Roflumilast) 500 Mcg Tablet 500 Mcg PO DAILY Culturelle (Lactobacillus Rhamnosus Gg) 1 Each Cap.sprink 1 Cap PO BID 7 Days Zosyn 2.25 Gram Vial (Piperacillin Sodium/Tazobactam) 2.25 Gm Vial 1 Each MC PRN DAILY PRN 7 Days Albuterol Sulfate Conc Neb Soln (Albuterol Sulfate) 2.5 Mg/0.5 Ml Vial.neb 1 Vial NEB Q4HRS PRN Nexium Capsule (Esomeprazole Magnesium) 20 Mg Capsule. 1 Cap PO DAILY Duoneb 0.5-3(2.5) Mg/3 Ml (Albuterol/Ipratropium) 3 Ml Ampul.neb 3 Ml NEB RTQID Reported Aspir-Low (Aspirin) 81 Mg Tablet. 1 Tab PO DAILY LAST DOSE GIVEN: DATE: TODAY TIME: AM NEXT DOSE DUE: DATE: TOMORROW TIME: AM Atorvastatin Calcium 40 Mg Tablet 1 Tab PO HS LAST DOSE GIVEN: DATE: YESTERDAY TIME: AT BEDTIME NEXT DOSE DUE: DATE: TODAY TIME: AT BEDTIME I have reviewed the current psychotropics carefully including drug interactions. Risk benefit ratio favors no change other than as noted in my dictated progress note. Diagnosis: Problems: (1) Major depressive disorder, recurrent episode (2) Impulse control disorder (3) Anxiety disorder (4) Dementia, vascular, with depression MICHAEL GALLEGOS MD Apr 10, 2018 20:09
[2018-04-10] MEDS: ATORVASTATIN CALCIUM 20 MG TABLET PO SCH (20:40)
[2018-04-10 22:52] VITALS: BP 113/65
[2018-04-11 05:35] VITALS: BP 115/65
[2018-04-11] MEDS: PANTOPRAZOLE 40 MG TABLET. PO SCH (07:41)
[2018-04-11] MEDS: amLODIPine BESYLATE 10 MG TABLET PO SCH (09:07)
[2018-04-11] MEDS: buPROPion XL 150 MG TAB.ER.24H PO SCH (09:07)
[2018-04-11] MEDS: LACTOBACILLUS RHAMNOSUS GG 1 CAPSULE. PO SCH (09:07)
[2018-04-11] MEDS: MAGNESIUM CHLORIDE ER 64 MG TABLET.ER PO SCH (09:07)
[2018-04-11] MEDS: ASPIRIN ENTERIC COATED 81 MG TABLET.DR. PO SCH (09:07)
[2018-04-11] MEDS: METOPROLOL SUCC 24HR ER 25 MG TAB.ER.24H. PO SCH (09:08)
[2018-04-11] MEDS: ROFLUMILAST 500 MCG TABLET PO SCH (09:08)
[2018-04-11] MEDS ORDERED: BUPR-192 PO (09:11)
[2018-04-11] MEDS: ACETAMINOPHEN 325 MG TABLET PO PRN (10:23)
--- NOTE | 2018-04-11 10:48 | PN ---
DATE: 04/11/2018 SUBJECTIVE: The patient stated that she had one hour - confusion last night, described as seeing many people in the room. Otherwise, she denies any new medical or neurological complaints. OBJECTIVE: GENERAL: Well-developed, well-nourished female, not in acute distress. VITAL SIGNS: Blood pressure 115/65, respiratory rate 16, pulse is 69, temperature is 98.4, oxygen saturation is 97% on 2 liters via nasal cannula. HEENT: Normocephalic, atraumatic, otherwise unremarkable. NECK: Supple. Negative for carotid bruit, lymphadenopathy or thyromegaly. LUNGS: Clear to A and P. CARDIOVASCULAR: Regular rate and rhythm, normal S1, S2. ABDOMEN: Soft. Bowel sounds positive. EXTREMITIES: Negative for cyanosis, clubbing or pitting edema. NEUROLOGICAL EXAM: Mental Status: The patient is alert and oriented x 2. Speech is fluent. There is no language dysfunction. The patient recalls 2/3 immediately and after 1 and 3 minutes. Judgment abstract and thinking are fair. The patient denies hallucination or delusion at this time. Cranial nerves are intact. No focal, motor or sensory deficit. Deep tendon reflexes were symmetric and hypoactive with absent Achilles responses. Gait: The patient uses a walker for ambulation. IMPRESSION: 1. Acute encephalopathy - resolved. 2. Dementia. 3. Major depression, anxiety disorders. 4. Multiple medical problems include hypertension, hyperlipidemia, coronary artery disease, diabetes mellitus, and gastroesophageal reflux disease. RECOMMENDATIONS: Visual hallucination, we will defer that to Dr. Bautista, otherwise, continue with the current management initiated by Dr. Salinas and physical therapy as tolerated. M Kaur PIERCE MD DR: JASON/olivia JOB#: [id number] / [id number]
[2018-04-11 11:00] VITALS: BP 112/67
--- NOTE | 2018-04-11 18:32 | PN ---
DATE: 04/10/2018 PSYCHIATRIC PROGRESS NOTE This is a late entry for 04/10/2018, covers elements not covered in my initial note. SUBJECTIVE: I met with the patient in the evening and discussed with the nursing staff. Overall, the patient remains somewhat withdrawn, does have some short-term memory deficits, but otherwise reasonably oriented. She has not been agitated, gets a little anxious. REVIEW OF SYSTEMS: Complains of tiredness. Rest of the review of systems unremarkable. No CV, , pulmonary, eye, ENT system symptoms on review. MENTAL STATUS EXAM: Oriented to herself and situation. Speech is coherent, abstraction fair, computation impaired, language function intact. Attention span short. She does have some short-term memory deficits. No suicidal or homicidal ideation. IMPRESSION: Unchanged from initial note. PLAN: Continue psychotropics mentioned in my initial note. MAN Haider GALLEGOS MD DR: DARRYL/olivia JOB#: [id number] / [id number]
== END 2018-04-11 16:07 | disposition home or self-care (01) | DRG 871 ==
LOC: ER 22:02 → 1 SOUTH 04-06 00:15
PROVIDERS: ADMIT Family Medicine; ATTEND Family Medicine
DX: A41.9 Sepsis, unspecified organism (principal); G93.40 Encephalopathy, unspecified; J18.9 Pneumonia, unspecified organism; F33.9 Major depressive disorder, recurrent, unspecified; J44.0 Chronic obstructive pulmonary disease with (acute) lower respiratory infection; J44.1 Chronic obstructive pulmonary disease with (acute) exacerbation; N39.0 Urinary tract infection, site not specified; E11.9 Type 2 diabetes mellitus without complications; E78.5 Hyperlipidemia, unspecified; F01.50 Vascular dementia, unspecified severity, without behavioral disturbance, psychotic disturbance, mood disturbance, and anxiety; F41.9 Anxiety disorder, unspecified; F63.9 Impulse disorder, unspecified; I11.0 Hypertensive heart disease with heart failure; I25.10 Atherosclerotic heart disease of native coronary artery without angina pectoris; I50.9 Heart failure, unspecified; M19.90 Unspecified osteoarthritis, unspecified site; E87.6 Hypokalemia; K59.00 Constipation, unspecified; K21.9 Gastro-esophageal reflux disease without esophagitis; Z79.899 Other long term (current) drug therapy; Z86.73 Personal history of transient ischemic attack (TIA), and cerebral infarction without residual deficits; Z90.49 Acquired absence of other specified parts of digestive tract; Z87.440 Personal history of urinary (tract) infections; Z91.14 Patient's other noncompliance with medication regimen; Z88.8 Allergy status to other drugs, medicaments and biological substances
CPT/HCPCS: 36415; 51701; 70450; 71046; 72125; 74022; 80048; 80307; 81001; 82553; 82607; 82746; 83605; 83735; 83880; 84436; 84443; 84480; 84484; 85025; 85610; 85730; 86592; 87040; 87086; 93005; G0238; J0696; J2543; J7120; 97110; 97116; 97530; 97535; 99285-25; G0479

== ENCOUNTER 2018-08-16 12:27 | Inpatient (IN) | payer OTHER ==
[~2018-08-16] VITALS: Ht 165.1 cm; Wt 52.8 kg
[2018-08-16] VITALS (11 sets, daily range): BP systolic 84–119; BP diastolic 38–71
[~2018-08-16 12:27] MED LIST changes: -AMLO10TA2 PO; +AMLO10TA6 PO; +BUPR-192 PO
[2018-08-16] MEDS ORDERED: IV NORMAL SALINE 1,000ML 1,000 ML IV SCH ×2 (12:32→13:56)
[2018-08-16] MEDS ORDERED: IV NORMAL SALINE 1,000ML 1,000 ML IV ONE ×2 (12:45→14:30)
--- NOTE | 2018-08-16 12:49 | EKG ---
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
[2018-08-16 13:47] LABS: BASO % 0 % (0-3); EOS % 0 % (0-3); HEMATOCRIT 44.9 % (36.0-47.0); HEMOGLOBIN 14.1 g/dL (12.0-15.5); LYMPH # 0.9 x10^3/uL (1.0-4.8); LYMPH % 6 % (24-48); MEAN CORPUSCULAR HEMOGLOBIN 29 pg (25-35); MEAN CORPUSCULAR HGB CONC 32 g/dL (31-37); MEAN CORPUSCULAR VOLUME 91 fL (79-100); MONO # 0.6 x10^3/uL (0.0-1.1); MONO % 4 % (0-9); NEUT # 13.4 x10^3uL (1.8-7.7); NEUT % 90 % (31-73); PLATELET COUNT 220 x10^3/uL (140-400); RED BLOOD COUNT 4.96 x10^6/uL (3.50-5.40); RED CELL DISTRIBUTION WIDTH 16.8 % (11.5-14.5)
[2018-08-16 14:06] LABS: ALBUMIN 2.2 g/dL (3.4-5.0); ALBUMIN/GLOBULIN RATIO 0.5 (1.0-1.7); CALCIUM 8.2 mg/dL (8.5-10.1); CREATININE 1.9 mg/dL (0.6-1.0); GFR 25.9; MAGNESIUM 2.6 mg/dL (1.8-2.4); TOTAL BILIRUBIN 0.9 mg/dL (0.2-1.0); TOTAL PROTEIN 6.9 g/dL (6.4-8.2)
[2018-08-16 14:08] LABS: POTASSIUM 2.4 mmol/L (3.5-5.1)
--- NOTE | 2018-08-16 14:08 | RAD ---
Examination: CT HEAD WO CONTRAST History: ALOC, DEHYDRATION, LOW RESPIRATIONS AND BODY TEMP. FOUND UNRESPONSIVE. HX PRIOR STROKES Comparison/Correlation: 02/28/2018 CT head without contrast Findings: Axial images of the head were obtained without contrast. Marked hydrocephalus primarily of the lateral ventricles appears slightly increased interval. Transverse dimension of the lateral ventricles appears increased by 0.2 cm. Atrophy and chronic ischemic changes white matter noted. No intracranial hemorrhage, midline shift, or mass effect. Atrophy and chronic ischemic findings again seen. Bony structures are unremarkable. Impression: Slight increase in marked hydrocephalus. No intracranial hemorrhage. Electronically signed by: French Woodard MD (08/16/2018 2:05 PM) [facility]
[2018-08-16] MEDS ORDERED: POTASSIUM CHLORIDE 20MEQ 100 ML IV ONE (14:15)
[2018-08-16] MEDS ORDERED: IV RINGERS SOLUTION,LACTATED 1,000 ML IV ONE (14:15)
--- NOTE | 2018-08-16 14:15 | RAD ---
PORTABLE CHEST 1V Clinical Indication: rattling sounds in chest, cough, low blood pressure, respirations and body temp Comparison: Two-view chest, April 10, 2018. Findings: The cardiomediastinal silhouette is normal. Lungs are hyperexpanded. Lungs are clear. There is no pneumothorax. No pleural effusion is appreciated. No acute bone abnormality. IMPRESSION: No acute cardiopulmonary process. Electronically signed by: Derek Shah MD (08/16/2018 2:12 PM) [id number]
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
[2018-08-16] MEDS ORDERED: IV NORMAL SALINE 50ML 50 ML ONE (14:46)
[2018-08-16] MEDS ORDERED: cefTRIAXone SODIUM 1 GM VIAL IV ONE (14:46)
[2018-08-16] MEDS: POTASSIUM CHLORIDE 10MEQ 100 ML IV SCH ×2 (14:51→15:45)
[2018-08-16 14:55] LABS: BGAS PH 7.47 (7.35-7.45)
[2018-08-16 16:41] LABS: BARBITURATES NEG (NEG); BENZODIAZEPINES NEG (NEG); CANNABINOIDS NEG (NEG); COCAINE NEG (NEG); METHADONE NEG (NEG); OPIATES NEG (NEG); PHENCYCLIDINE NEG (NEG)
[2018-08-16 16:48] LABS: AMPHETAMINE/METHAMPHETAMINE NEG (NEG)
[2018-08-16] MEDS ORDERED: ELECTROLYTE (ICU) PROTOCOL. MC PRN ×2 (17:45→22:15)
[2018-08-16] MEDS ORDERED: IV DEXTROSE 5% 100 ML IV PRN (17:45)
[2018-08-16] MEDS ORDERED: NITROGLYCERIN SUBLINGUAL 0.4 MG BOTTLE OF 25. SL PRN (18:00)
[2018-08-16] MEDS ORDERED: PIP/TAZO PER PHARMACY MC SCH (18:00)
[2018-08-16] MEDS ORDERED: NON FORMULARY ITEM (Albuterol Sulfate (Albuterol Sulfate Conc Neb Soln) 1 VIAL) NEB PRN (18:00)
[2018-08-16] MEDS ORDERED: ALBUTEROL SULFATE 2.5 MG/3 ML NEBU. NEB PRN (18:30)
[2018-08-16] MEDS ORDERED: PIP/TAZO PER PHARMACY MC PRN (18:30)
[2018-08-16] MEDS ORDERED: ZINC OXIDE/COD LIVER OIL 40% TOPICAL OINTMENT 56GM TUBE. TP ONE (18:30)
[2018-08-16] MEDS: IV DEXTROSE 5% 1,000 ML IV SCH (19:59)
[2018-08-16] MEDS: ATORVASTATIN CALCIUM 20 MG TABLET PO SCH (20:00)
[2018-08-16 20:27] LABS: BILIRUBIN,URINE NEG (NEG); CLARITY,URINE HAZY; COLOR,URINE YELLOW; GLUCOSE,URINE NEG (NEG)
[2018-08-16] MEDS: IPRATRPIUM/ALBUTEROL 0.5/2.5MG 3 ML NEBU. NEB SCH (20:27)
[2018-08-16 20:28] LABS: NITRITE,URINE POS (NEG); UROBILINOGEN,URINE 0.2 mg/dL (0.2 mg/dL)
[2018-08-16 20:29] LABS: BACTERIA,URINE FEW /HPF (0-FEW); WBC,URINE >40 /HPF (0-4)
[2018-08-16 20:30] LABS: HYALINE CASTS, URINE FEW /HPF
[2018-08-16] MEDS ORDERED: POTASSIUM CHLORIDE 20MEQ 100 ML IV SCH (22:00)
[2018-08-16] MEDS: PIPERACILLIN/TAZOBACTAM 2.25 GM in IV NORMAL SALINE 50ML 50 ML IV SCH (22:31)
[2018-08-16] MEDS: NOREPINEPHRINE BITARTRATE 8 MG in IV NORMAL SALINE 250ML 250 ML IV PRN (22:33)
[2018-08-16] MEDS: POTASSIUM CHLORIDE 40 MEQ in IV DEXTROSE 5% 500 ML IV SCH (22:34)
[2018-08-17] VITALS (47 sets, daily range): BP systolic 86–123; BP diastolic 41–68
[2018-08-17] MEDS: IV DEXTROSE 5% 1,000 ML IV SCH ×4 (02:43→14:45)
[2018-08-17] MEDS: POTASSIUM CHLORIDE 40 MEQ in IV DEXTROSE 5% 500 ML IV SCH ×2 (02:44→06:57)
[2018-08-17] MEDS: IPRATRPIUM/ALBUTEROL 0.5/2.5MG 3 ML NEBU. NEB SCH ×4 (05:17→20:21)
[2018-08-17] MEDS: PIPERACILLIN/TAZOBACTAM 2.25 GM in IV NORMAL SALINE 50ML 50 ML IV SCH ×4 (06:00→23:43)
[2018-08-17 06:18] LABS: BASO % 0 % (0-3); EOS # 0.1 x10^3/uL (0.0-0.7); EOS % 1 % (0-3); HEMATOCRIT 33.4 % (36.0-47.0); HEMOGLOBIN 10.8 g/dL (12.0-15.5); LYMPH # 2.1 x10^3/uL (1.0-4.8); LYMPH % 13 % (24-48); MEAN CORPUSCULAR HEMOGLOBIN 29 pg (25-35); MEAN CORPUSCULAR HGB CONC 32 g/dL (31-37); MEAN CORPUSCULAR VOLUME 89 fL (79-100); MONO # 0.7 x10^3/uL (0.0-1.1); MONO % 4 % (0-9); NEUT # 13.3 x10^3uL (1.8-7.7); NEUT % 82 % (31-73); PLATELET COUNT 182 x10^3/uL (140-400); RED BLOOD COUNT 3.75 x10^6/uL (3.50-5.40); RED CELL DISTRIBUTION WIDTH 15.9 % (11.5-14.5); WHITE BLOOD COUNT 16.2 x10^3/uL (4.0-11.0)
[2018-08-17 06:22] LABS: CALCIUM 6.5 mg/dL (8.5-10.1); CREATININE 1.5 mg/dL (0.6-1.0)
[2018-08-17 06:30] LABS: POTASSIUM 2.3 mmol/L (3.5-5.1)
[2018-08-17 07:17] LABS: BGAS PH 7.5 (7.35-7.45)
[2018-08-17] MEDS ORDERED: PANTOPRAZOLE 40 MG TABLET. PO SCH (07:30)
[2018-08-17] MEDS: ASPIRIN 81 MG TAB.CHEW PO SCH (08:00)
[2018-08-17 08:22] LABS: % BANDS 8 % (0-9); % BASOS 0 % (0-3); % EOS 1 % (0-5); % LYMPHS 13 % (24-48); % MONOS 5 % (0-10); % SEGS 73 % (35-66); PLATELET CLUMP PRESENT; PLT ESTIMATE ADEQUATE (ADEQUATE)
[2018-08-17 08:23] LABS: TOXIC GRANULATION PRESENT
[2018-08-17] MEDS: MAGNESIUM CHLORIDE ER 64 MG TABLET.ER PO SCH (09:00)
[2018-08-17] MEDS: amLODIPine BESYLATE 10 MG TABLET PO SCH (09:00)
[2018-08-17] MEDS: ROFLUMILAST 500 MCG TABLET PO SCH (09:00)
[2018-08-17] MEDS: METOPROLOL SUCC 24HR ER 25 MG TAB.ER.24H. PO SCH (09:00)
[2018-08-17] MEDS: buPROPion XL 150 MG TAB.ER.24H PO SCH (09:00)
[2018-08-17] MEDS ORDERED: ROFLUMILAST 500 MCG PO SCH (09:00)
[2018-08-17] MEDS ORDERED: ELECTROLYTE (ICU) PROTOCOL. MC PRN (09:45)
--- NOTE | 2018-08-17 11:59 | RAD ---
CANDI, 08/17/2018: HISTORY: Check Dobbhoff tube placement A single view of the upper abdomen and lower chest demonstrates a Dobbhoff tube extending into the proximal aspect of the stomach. Its tip is projected over the proximal body of the stomach. The upper abdominal gas pattern is unremarkable. IMPRESSION: The Dobbhoff tube extends into the proximal aspect of the stomach. Electronically signed by: Jeffrey Babcock MD (08/17/2018 11:55 AM) [facility]
[2018-08-17] MEDS: POTASSIUM CHLORIDE 10MEQ 100 ML IV SCH ×3 (12:28→14:00)
--- NOTE | 2018-08-17 14:37 | PN ---
DATE: 08/17/2018 SUBJECTIVE: The patient is not able to communicate, but is able to check her head and respond to verbal commands. Overnight, the patient had hypotension; therefore, she was placed on norepinephrine. OBJECTIVE: GENERAL APPEARANCE: Well-nourished female, not in acute distress. VITAL SIGNS: Blood pressure is 112/49, respiratory rate is 16, pulse is 66 and regular, oxygen saturation is 96% on 2 liters by nasal cannula. HEENT: Normocephalic, atraumatic, otherwise unremarkable. NECK: Supple. Negative for carotid bruit, lymphadenopathy or thyromegaly. LUNGS: Clear. CARDIOVASCULAR: Regular rhythm, normal S1, S2. ABDOMEN: Soft. Bowel sounds positive. EXTREMITIES: Negative for cyanosis, clubbing, pitting edema. NEUROLOGICAL EXAM: Mental Status: The patient is awake. She follows 1-step commands. She is unable to communicate. Further evaluation of her mental status is limited at this time. Cranial Nerves: There is no facial motor or sensory deficit. Motor examination: The patient moves upper and lower extremities and squeeze hands. Sensory examination: Revealed the patient withdraws to noxious stimuli. Deep tendon reflexes were symmetric and hypoactive with absent Achilles responses. Gait not tested. LABORATORY DATA: Chemistry revealed sodium of 150, potassium 2.3, chloride 112, CO2 of 27, BUN 32, creatinine 1.5, glucose 162. Lactic acid is high at 2.1. Calcium is low at 6.5, magnesium is high at 2.6. Lipid profile is normal. Thyroid profile is normal. Vitamin B12 is normal. IMPRESSION: 1. Acute encephalopathy, complicated with urosepsis and renal insufficiency/severe dehydration. 2. Multiple medical and psychiatric problems that include depression, anxiety, possible history of schizoaffective disorders, gastroesophageal reflux disease, and dementia. RECOMMENDATIONS: Continue with current management for underlying urosepsis and correct the underlying multiple metabolic derangements. M Kaur PIERCE MD DR: JASON/olivia JOB#: [id number] / [id number]
--- NOTE | 2018-08-17 14:42 | HP ---
ADMIT DATE: 08/16/2018 HISTORY OF PRESENT ILLNESS: A 72-year-old female came in through the Emergency Room in decreased level of consciousness. Apparently, this patient has been left pretty much alone and apparently people is supposed to come in and take care of her, but she was found lying in her own feces and urine, not unknown how long possibly ____ or more. The patient has lost approximately 50 pounds since her last admission here just a few months ago. The patient is septic and in turn was basically unresponsive initially in the Emergency Room, she was extremely dehydrated ____ low blood pressure and the like, the patient was markedly emaciated, not able to give much of the history at all. The patient was admitted for numerous reasons obviously for protection, generalized care as well as sepsis, severe malnutrition. PAST MEDICAL HISTORY: Cataract, tonsillitis. She has history of stroke, hypercholesterolemia, respiratory disorders pneumonia, cholecystectomy, appendectomy, hysterectomy, incontinence, depression, anemia. She has had history of vaccinations for chickenpox, pneumococcal vaccinations are up-to-date. She has also had pressure ulcers. She has marked excoriations to her bottom. ALLERGIES: She has no known drug allergies. The excoriations were new. HOME MEDICATIONS: That apparently she was not taking anyway include DuoNeb, albuterol, Lipitor 40, nitroglycerin 0.4, metoprolol 25 mg daily, Norvasc 10, aspirin, Tylenol ____ 150 daily, ____ 600 mg tablet daily, ____ 500 mg daily, Nexium 20 mg daily, magnesium chloride. SOCIAL HISTORY: No smoking, alcohol or drug use is noted. Lives by herself. Apparently unable to take care of herself and did have proper supervision; taking medications and general hygiene and general care. REVIEW OF SYSTEMS: Unable to obtain. The patient not communicated. PHYSICAL EXAMINATION: GENERAL: This is a pleasant white female looking very markedly cachectic. VITAL SIGNS: Blood pressure was as low as approximately 95/44, pulse of 95, respiratory rate 20. The patient actually was hypothermic at one time temperature of 95.6, a pulse of greater initially 126 with a respiratory rate of 27. HEENT: Head was atraumatic, normocephalic. The eyes were somewhat constricted, but reactive to light and accommodation. EOMI. Mouth and throat: Poor dentition. NECK: Supple. LUNGS: Show diminished breath sounds, although she has a wet cough. ABDOMEN: Soft, nontender. EXTREMITIES: No clubbing, cyanosis. Marked atrophy to all the musculoskeletal system of both the upper and lower extremities, marked generalized weakness. NEUROLOGIC: Slightly alert, but just by shaking her head. She ____ answering questions verbally, but just with a nod of the head. She does seem to follow some simple instructions something such as shaking hands or grabbing the hand, squeezing it, but other than that, the patient is markedly debilitated ____ severe conditions. LABORATORY DATA: Show white count of 15, hemoglobin 14 and 44 down to 10 and 33 with just mild hydration. The patient's chemistries show a potassium of 2.4, sodium of 162. BNP of 2100. Albumin of 2.2, creatinine 1.9. Urine showed greater than 40 white blood cells per high powered field. The patient otherwise is on IV fluids of D5 for calories as well as delusional as well as we will try to put a Dobbhoff to get her feeding, do bedside swallow of course IV antibiotic therapy for sepsis. IMPRESSION: Sepsis, marked cachexia, marked debilitation, excoriations to the gluteal areas need protective care, severe protein malnutrition, urinary tract infection, hypokalemia, hypernatremia, dehydration, emaciation. PLAN: As above. Fluids to get her potassium and sodium down and on IV antibiotic therapy for sepsis and make further evaluation on her as indicated. CORINNA DIANE MD DR: BRADY/olivia JOB#: [id number] / [id number]
--- NOTE | 2018-08-17 15:38 | CONS ---
DATE OF CONSULTATION: 08/16/2018 NEUROLOGY CONSULTATION REASON FOR CONSULTATION: Acute mental status changes. HISTORY OF PRESENT ILLNESS: This is a 72-year-old female who was admitted through Emergency Room today after she was found with altered mental status. The patient is not able to communicate; however, the qytkentw-or-iyz stated she used to talk and take care of herself at home. The bqneqirg-wg-deo stated that she left her a month ago because she had to travel to another state and have another family member to take care of her in her absence. When she came back, she found the patient nonresponsive and she had worsening of bed sore. Currently, the patient is not able to communicate. In the Emergency Room, she was found to be severely dehydrated status along with renal insufficiency or failure. Her potassium was extremely low and sodium was extremely high. PAST MEDICAL HISTORY: Significant for schizoaffective disorder, depression, anxiety, history of stroke, urinary infections, urinary incontinence and generalized weakness. PAST SURGICAL HISTORY: Significant for appendectomy, cholecystectomy. SOCIAL HISTORY: The patient lives at home. There is no history of smoking, alcohol drinking, or illicit drug use. CURRENT HOME MEDICATIONS: Include Tylenol, albuterol inhaler, amlodipine, aspirin, Lipitor, Wellbutrin, metoprolol, nitroglycerin tablets sublingually. ALLERGIES: No known drug allergies. REVIEW OF SYSTEMS: A 10-point review of system was performed as mentioned above in the history of present illness. Otherwise, the patient cannot communicate. The patient could not communicate or follow any commands. PHYSICAL EXAMINATION: GENERAL: A well-developed, thin white female, not in acute distress. VITAL SIGNS: Blood pressure 103/71, respiratory rate 17, pulse is 88, temperature is 98.7, oxygen saturation 99% on 2 liters by nasal cannula. HEENT: Normocephalic, atraumatic, otherwise unremarkable. NECK: Supple. Negative for carotid bruit, lymphadenopathy, JVD or thyromegaly. LUNGS: With diminished breath sounds. CARDIOVASCULAR: Regular rhythm, normal S1, S2. ABDOMEN: Soft. Bowel sounds positive. There is no palpable mass or organomegaly or tenderness. EXTREMITIES: Positive for dry skin confined to the posterior lower extremities and buttocks bedsore. NEUROLOGIC: The patient is awake, but not communicative. She does not follow any commands. She moves her upper and lower extremities to noxious stimuli. No facial, motor, or sensory deficit. Sensory examination revealed normal pinprick and light touch senses. Deep tendon reflexes were symmetric and hypoactive with absent Achilles responses. Gait not tested. LABORATORY DATA: CBC revealed white blood cells of 15,000, hemoglobin 14.1, hematocrit 44.9, platelet count 220,000. Chemistry revealed sodium of 162, potassium 2.4, chloride 117, BUN 14, creatinine 1.9, glucose 127, calcium 8.2. AST is 38 with normal alkaline phosphatase and BNP high at 2182. Urinalysis consistent with positive nitrite and moderate urinary leukocyte esterase with white blood cells more than 40. Urine drug screen is negative. DIAGNOSTIC DATA: EKG revealed sinus tachycardia at 114. Otherwise, no acute abnormalities. Initial nonenhanced head CT scan revealed no acute intracranial process plus positive for marked hydrocephalus. Chest x-ray revealed no acute cardiopulmonary process. IMPRESSION: 1. Acute encephalopathy, metabolic and infectious type. The patient had urosepsis and significant dehydration along with renal failure/insufficiency presented with severe hypernatremia and marked hypokalemia. 2. Multiple medical problems include dementia, depression, anxiety, and possible schizoaffective disorders along with anemia and gastroesophageal reflux disease. 3. History of stroke. RECOMMENDATIONS: 1. Underlying urosepsis, dehydration, and correct the underlying metabolic derangement of hypernatremia and hypokalemia. 2. Physical therapy evaluation. M Kaur PIERCE MD DR: JASON/olivia JOB#: [id number] / [id number]
[2018-08-17] MEDS: CALCIUM CARB/VIT D3 500/200 TABLET PO SCH (17:00)
[2018-08-17] MEDS ORDERED: MAGNESIUM SULFATE 2GM 50 ML IV ONE (17:00)
[2018-08-17] MEDS: AA 3%/ELECTROLYTE-TPN SOLN/GLY 1,000 ML IV SCH (18:13)
--- NOTE | 2018-08-17 18:17 | RAD ---
History: Dobbhoff tube replacement. Comparison: Earlier August 17, 2018. Findings: AP view of the upper abdomen. There is a Dobbhoff tube present with tip projecting at the body of the stomach. Visualized bowel gas pattern is nonspecific. Impression: Dobbhoff tube tip projects at body of stomach. Electronically signed by: Rich Jameson MD (08/17/2018 6:14 PM) [id number]
[2018-08-17] MEDS: LACTOBACILLUS RHAMNOSUS GG 1 CAPSULE. PO SCH (19:59)
[2018-08-17] MEDS: ATORVASTATIN CALCIUM 20 MG TABLET PO SCH (20:12)
[2018-08-17 21:01] LABS: MAGNESIUM 2.1 mg/dL (1.8-2.4)
[2018-08-17 21:04] LABS: POTASSIUM 2.5 mmol/L (3.5-5.1)
[2018-08-17] MEDS: POTASSIUM CHLORIDE 20MEQ 100 ML IV SCH (21:44)
[2018-08-18] VITALS (13 sets, daily range): BP systolic 85–122; BP diastolic 42–69
[2018-08-18] MEDS: POTASSIUM CHLORIDE 20MEQ 100 ML IV SCH ×2 (00:21→02:17)
[2018-08-18] MEDS: NOREPINEPHRINE BITARTRATE 8 MG in IV NORMAL SALINE 250ML 250 ML IV PRN (02:22)
[2018-08-18] MEDS: IPRATRPIUM/ALBUTEROL 0.5/2.5MG 3 ML NEBU. NEB SCH ×4 (04:52→21:20)
[2018-08-18] MEDS: PIPERACILLIN/TAZOBACTAM 2.25 GM in IV NORMAL SALINE 50ML 50 ML IV SCH ×3 (05:25→17:41)
[2018-08-18] MEDS: AA 3%/ELECTROLYTE-TPN SOLN/GLY 1,000 ML IV SCH ×2 (06:33→21:51)
[2018-08-18 06:54] LABS: BASO % 0 % (0-3); EOS # 0.1 x10^3/uL (0.0-0.7); EOS % 1 % (0-3); HEMATOCRIT 32.3 % (36.0-47.0); HEMOGLOBIN 10.8 g/dL (12.0-15.5); LYMPH # 1.9 x10^3/uL (1.0-4.8); LYMPH % 18 % (24-48); MEAN CORPUSCULAR HEMOGLOBIN 29 pg (25-35); MEAN CORPUSCULAR HGB CONC 33 g/dL (31-37); MEAN CORPUSCULAR VOLUME 87 fL (79-100); MONO # 0.5 x10^3/uL (0.0-1.1); MONO % 5 % (0-9); NEUT % 76 % (31-73); PLATELET COUNT 139 x10^3/uL (140-400); RED CELL DISTRIBUTION WIDTH 15.9 % (11.5-14.5); WHITE BLOOD COUNT 10.6 x10^3/uL (4.0-11.0)
[2018-08-18 07:18] LABS: CALCIUM 6.8 mg/dL (8.5-10.1); CREATININE 1.1 mg/dL (0.6-1.0); GFR 48.7; POTASSIUM 3.3 mmol/L (3.5-5.1)
[2018-08-18] MEDS: PANTOPRAZOLE IV 40 MG VIAL. IVP SCH (07:30)
[2018-08-18] MEDS ORDERED: POTASSIUM CHLORIDE 20 MEQ/15 ML ORAL LIQUID. PO ONE ×2 (11:45→17:00)
[2018-08-18] MEDS: ROFLUMILAST 500 MCG TABLET PO SCH ×2 (12:53→12:56)
[2018-08-18] MEDS: buPROPion XL 150 MG TAB.ER.24H PO SCH (12:54)
[2018-08-18] MEDS: LACTOBACILLUS RHAMNOSUS GG 1 CAPSULE. PO SCH ×2 (12:54→21:50)
[2018-08-18] MEDS: ASPIRIN 81 MG TAB.CHEW PO SCH (12:54)
[2018-08-18] MEDS: METOPROLOL SUCC 24HR ER 25 MG TAB.ER.24H. PO SCH (12:54)
[2018-08-18] MEDS: MAGNESIUM CHLORIDE ER 64 MG TABLET.ER PO SCH (12:55)
[2018-08-18] MEDS: amLODIPine BESYLATE 10 MG TABLET PO SCH (12:55)
[2018-08-18] MEDS: CALCIUM CARB/VIT D3 500/200 TABLET PO SCH ×2 (12:55→17:39)
--- NOTE | 2018-08-18 14:36 | PN ---
DATE: 08/18/2018 REFERRING PHYSICIAN: Dr. Dustin Salinas. SUBJECTIVE: The patient denies any new medical or neurological complaints. OBJECTIVE: GENERAL: Well-developed, well-nourished female in no acute distress. VITAL SIGNS: Blood pressure 110/50, respiratory rate is 17, pulse is 89 and regular, temperature is 97.7, oxygen saturation 94% on room air. HEENT: Normocephalic, atraumatic, otherwise unremarkable. NECK: Supple. Negative for carotid bruit, lymphadenopathy or thyromegaly. LUNGS: Clear to A and P. CARDIOVASCULAR: Regular rate and rhythm. Normal S1, S2. There is no S3, S4, or murmur. ABDOMEN: Soft. Bowel sounds positive. EXTREMITIES: Negative for cyanosis, clubbing or edema. NEUROLOGICAL EXAM: Mental Status: The patient is more alert and oriented to herself and place. Speech is fluent and she follows 1-step commands. Memory, judgment, and abstract thinking are fair. The patient denies hallucination or delusion. Cranial nerves are grossly intact. No focal motor or sensory deficit. The patient moves her all extremities equally. Deep tendon reflexes are symmetric and hypoactive with absent Achilles responses. LABORATORY DATA: CBC revealed white blood cells of 10.6 thousand, hemoglobin 10.8, hematocrit 32.3, platelet count of 139,000. Chemistry revealed sodium of 145, potassium 3.3, chloride 109, CO2 of 27, BUN 18, creatinine 1.1, glucose 89. IMPRESSION: 1. Acute encephalopathy -- improved. 2. Urinary tract infections. 3. Hypokalemia. 4. Dehydration -- improved. 5. Multiple medical problems that include dementia, depression, anxiety and history of stroke. RECOMMENDATIONS: Continue with current management and currently underlying metabolic derangements. M Kaur PIERCE MD DR: JASON/olivia JOB#: [id number] / [id number]
[2018-08-18 15:53] LABS: CREATININE 1.2 mg/dL (0.6-1.0); POTASSIUM 3.3 mmol/L (3.5-5.1)
--- NOTE | 2018-08-18 19:19 | PN ---
DATE: SUBJECTIVE: A 72-year-old female came in with marked debilitation, dehydration, poor care at her home, making some progress, able to eat and drink a little bit better, actually making some progress in that regard. The patient otherwise has noted she is able to mumble a few words. She was able to eat. A bedside swallowing study was basically negative and she felt hungry, so she was started on some food, gradually increased it. She had pulled out a feeding tube, but no longer needs that. Her white count has come down dramatically from 16,000 down to 10,000. Blood pressure 100/62, respiratory rate 20, pulse 91, afebrile. The patient is alert and oriented, more so than has been. She is still very weak, was not underestimate this. She still needs continued aggressive PT, OT to help rehabilitate her. She is still weak, we have not really got her out of bed yet because of the weakness in her legs, the marked atrophy. Hopefully, we can start getting her to take in some nutrition. Her prealbumin was low at 7.7. She was also slightly low on her vitamin D of course, slightly hypothyroid, magnesium has come down. Sodium is coming down to 150. In the last report, I have was the potassium, it has come up to 3.3 and sodium of 145. Her creatinine has come down all the way from 1.9 down to 1.1, showing the significant degree of dehydration of this individual and the lack of care that she was being attended to at her home, so we will continue. She has been moved to the floor from ICU, she stabilized and continue to monitor her there. IMPRESSION: Sepsis, marked cachexia, hypernatremia, hypokalemia, skin breakdown to the gluteal area, severe protein malnutrition, urinary tract infection, dehydration, emaciation and hypotension with one time requiring Levophed. PLAN: Continue to monitor carefully. She still continues to need rehabilitation care to regain her strength. CORINNA DIANE MD DR: BRADY/olivia JOB#: [id number] / [id number]
[2018-08-18 21:11] LABS: CREATININE 1.1 mg/dL (0.6-1.0); GFR 48.7; POTASSIUM 3.8 mmol/L (3.5-5.1)
[2018-08-18] MEDS: ATORVASTATIN CALCIUM 20 MG TABLET PO SCH (21:51)
[2018-08-19] MEDS: PIPERACILLIN/TAZOBACTAM 2.25 GM in IV NORMAL SALINE 50ML 50 ML IV SCH ×2 (00:41→06:30)
[2018-08-19] MEDS: IPRATRPIUM/ALBUTEROL 0.5/2.5MG 3 ML NEBU. NEB SCH ×4 (05:42→20:13)
[2018-08-19 05:53] VITALS: BP 95/70
[2018-08-19] MEDS: MAGNESIUM CHLORIDE ER 64 MG TABLET.ER PO SCH (08:55)
[2018-08-19] MEDS: ASPIRIN 81 MG TAB.CHEW PO SCH (08:56)
[2018-08-19] MEDS: PANTOPRAZOLE IV 40 MG VIAL. IVP SCH (08:56)
[2018-08-19] MEDS: CALCIUM CARB/VIT D3 500/200 TABLET PO SCH ×2 (08:56→17:05)
[2018-08-19] MEDS: buPROPion XL 150 MG TAB.ER.24H PO SCH (08:57)
[2018-08-19] MEDS: LACTOBACILLUS RHAMNOSUS GG 1 CAPSULE. PO SCH ×2 (09:00→20:06)
[2018-08-19] MEDS: METOPROLOL SUCC 24HR ER 25 MG TAB.ER.24H. PO SCH (09:00)
[2018-08-19] MEDS: amLODIPine BESYLATE 10 MG TABLET PO SCH (09:00)
[2018-08-19 11:16] LABS: BASO % 0 % (0-3); EOS # 0.1 x10^3/uL (0.0-0.7); EOS % 1 % (0-3); HEMATOCRIT 34.9 % (36.0-47.0); HEMOGLOBIN 11.4 g/dL (12.0-15.5); LYMPH # 1.4 x10^3/uL (1.0-4.8); LYMPH % 16 % (24-48); MEAN CORPUSCULAR HEMOGLOBIN 29 pg (25-35); MEAN CORPUSCULAR HGB CONC 33 g/dL (31-37); MEAN CORPUSCULAR VOLUME 88 fL (79-100); MONO # 0.4 x10^3/uL (0.0-1.1); MONO % 4 % (0-9); NEUT # 6.7 x10^3uL (1.8-7.7); NEUT % 78 % (31-73); PLATELET COUNT 173 x10^3/uL (140-400); RED BLOOD COUNT 3.96 x10^6/uL (3.50-5.40); RED CELL DISTRIBUTION WIDTH 16.6 % (11.5-14.5); WHITE BLOOD COUNT 8.6 x10^3/uL (4.0-11.0)
[2018-08-19 11:25] LABS: CALCIUM 7.5 mg/dL (8.5-10.1); GFR 54.3
[2018-08-19] MEDS: AA 3%/ELECTROLYTE-TPN SOLN/GLY 1,000 ML IV SCH ×2 (14:45→20:00)
[2018-08-19 16:19] VITALS: BP 136/69
[2018-08-19 19:44] VITALS: BP 112/69
[2018-08-19] MEDS: ATORVASTATIN CALCIUM 20 MG TABLET PO SCH (20:06)
[2018-08-19] MEDS: ACETAMINOPHEN 325 MG TABLET PO PRN (20:07)
[2018-08-19 23:03] VITALS: BP 105/64
--- NOTE | 2018-08-20 01:22 | PN ---
DATE: SUBJECTIVE: A 72-year-old female in with multiple medical problems. She has had severe significant sepsis and alike seems to be a little bit more vivid today, a little bit stronger. OBJECTIVE: VITAL SIGNS: Blood pressure 136/70, respiration 18, pulse 97, afebrile. GENERAL: The patient is alert, talkative, a little bit more, still is very soft, speaking quality to her situation. LUNGS: Clear. CARDIOVASCULAR: Stable. ABDOMEN: Soft, nontender. PLAN: We will go ahead and continue to monitor her accordingly and make further evaluation. She is just on IV Levaquin. Her electrolytes are improving overall. Her sodium was down to 141, potassium is up to 4. We will continue to monitor the patient accordingly, make further evaluation on her as indicated. IMPRESSION: Sepsis, hypernatremia, hypokalemia, shhzqvky-kf-pnkrij protein malnutrition and cachexia. CORINNA DIANE MD DR: BRADY/olivia JOB#: [id number] / [id number]
[2018-08-20] MEDS: AA 3%/ELECTROLYTE-TPN SOLN/GLY 1,000 ML IV SCH ×2 (03:08→22:06)
[2018-08-20] MEDS: IPRATRPIUM/ALBUTEROL 0.5/2.5MG 3 ML NEBU. NEB SCH ×4 (04:58→20:26)
[2018-08-20 05:24] VITALS: BP 110/69
[2018-08-20] MEDS: PANTOPRAZOLE IV 40 MG VIAL. IVP SCH (08:53)
[2018-08-20] MEDS: LACTOBACILLUS RHAMNOSUS GG 1 CAPSULE. PO SCH ×2 (08:54→22:01)
[2018-08-20] MEDS: ROFLUMILAST 500 MCG TABLET PO SCH (08:54)
[2018-08-20] MEDS: METOPROLOL SUCC 24HR ER 25 MG TAB.ER.24H. PO SCH (08:54)
[2018-08-20] MEDS: CALCIUM CARB/VIT D3 500/200 TABLET PO SCH ×2 (08:54→17:00)
[2018-08-20] MEDS: MAGNESIUM CHLORIDE ER 64 MG TABLET.ER PO SCH (08:54)
[2018-08-20] MEDS: ASPIRIN 81 MG TAB.CHEW PO SCH (08:55)
[2018-08-20] MEDS: buPROPion XL 150 MG TAB.ER.24H PO SCH (08:55)
[2018-08-20] MEDS: amLODIPine BESYLATE 10 MG TABLET PO SCH (08:55)
--- NOTE | 2018-08-20 10:32 | PN ---
DATE: 08/20/2018 SUBJECTIVE: The patient denies any new neurological complaints; however, the patient complains of pain of the right foot. OBJECTIVE: GENERAL: Thin, white female, not in acute distress. VITAL SIGNS: Blood pressure 110/69, respiratory rate 20, pulse is 107 and regular, oxygen saturation 95% on room air. HEENT: Normocephalic, atraumatic, otherwise unremarkable. NECK: Supple. Negative for carotid bruit, lymphadenopathy, or thyromegaly. LUNGS: With diminished breath sounds. CARDIOVASCULAR: Regular rhythm, normal S1, S2. ABDOMEN: Soft. Bowel sounds positive. EXTREMITIES: Negative for cyanosis, clubbing, pitting edema. However, the right third toe is ecchymotic and tender to touch. NEUROLOGICAL: Mental Status: The patient is alert and oriented x 2. She names the hospital and alert to date and situation. Speech is more fluent. There is no language dysfunction. Memory, judgment, and abstract thinking are fair. The patient denies hallucination or delusion. Cranial nerves are grossly intact. No focal motor or sensory deficit. However, the strength was 4/5 throughout. Sensory examination revealed normal pinprick and light touch senses throughout. Deep tendon reflexes were symmetric and hypoactive with absent Achilles responses. Gait not tested. IMPRESSION: 1. Acute encephalopathy, multifactorial including infectious and metabolic derangements -- clinically improved. 2. Severe dehydration -- improved with normal sodium and potassium. 3. History of stroke, depressions, anxiety, dementia. 4. Urinary tract infections. RECOMMENDATIONS: Continue with current management initiated by Dr. Salinas and physical therapy as tolerated. M Kaur PIERCE MD DR: JASON/olivia JOB#: [id number] / [id number]
--- NOTE | 2018-08-20 12:13 | PN ---
DATE: 08/19/2018 SUBJECTIVE: The patient continued to have generalized weakness. She is more alert and communicative. OBJECTIVE: GENERAL: A thin, well-developed female, not in acute distress. VITAL SIGNS: Blood pressure 136/69, respiratory rate 18, pulse is 97 and regular, oxygen saturation 94%, and temperature is 97.8. HEENT: Normocephalic, atraumatic, otherwise unremarkable. NECK: Supple. Negative for carotid bruit, lymphadenopathy or thyromegaly. LUNGS: Clear to A and P. CARDIOVASCULAR: Regular rate and rhythm, normal S1, S2. ABDOMEN: Soft. Bowel sounds positive. EXTREMITIES: Negative for cyanosis, clubbing or pitting edema. NEUROLOGICAL EXAM: Mental Status: The patient is more alert and oriented to herself and place. Speech is more fluent. There is no language dysfunction. Memory, judgment, and abstract thinking are fair. The patient denies hallucination or delusion. Cranial nerves are grossly intact. No focal motor or sensory deficit. The strength was 4/5 throughout. Sensory examination revealed normal pinprick, light touch senses throughout. Deep tendon reflexes were symmetric and hypoactive without pathology responses. Gait not tested. LABORATORY DATA: CBC revealed white blood cells of 8.6 thousand, hemoglobin 11.4, hematocrit 34.9, platelet count 173,000. Chemistry revealed sodium of 141, potassium 4, chloride 105, CO2 of 28, BUN 14, creatinine 1, and glucose 117, calcium 7.5. IMPRESSION: 1. Acute encephalopathy -- improved. 2. Urinary tract infection/sepsis. 3. Hypokalemia. 4. Dehydration -- improved. 5. Multiple medical problems include dementia, depression, anxiety and history of stroke. RECOMMENDATIONS: We will continue with current management initiated by Dr. Salinas careful hydration with potassium supplements. M Kaur PIERCE MD DR: JASON/olivia JOB#: [id number] / [id number]
[2018-08-20 15:21] VITALS: BP 114/71
--- NOTE | 2018-08-20 19:30 | PN ---
DATE: SUBJECTIVE: A 72-year-old female in with sepsis and severe hypernatremia, severe hypokalemia, doing somewhat better. She is still a little more talkative, but still very weak, still continues to need rehabilitation. OBJECTIVE: VITAL SIGNS: Blood pressure 110/70, pulse 107. She is afebrile. She is more alert than she has been, but she still has paucity of speech, but making progress over otherwise. LUNGS: Clear. CARDIOVASCULAR: Regular sinus rhythm. ABDOMEN: Soft, nontender. IMPRESSION: Acute encephalopathy, urinary tract infection with sepsis, hypokalemia, hyponatremia, dehydration. Continue with rehabilitation and continue monitoring electrolytes. CORINNA DIANE MD DR: BRADY/olivia JOB#: [id number] / [id number]
[2018-08-20 20:00] VITALS: BP 121/66
[2018-08-20] MEDS: levoFLOXacin 750 MG TABLET PO SCH (20:00)
[2018-08-20] MEDS: ATORVASTATIN CALCIUM 20 MG TABLET PO SCH (22:02)
[2018-08-20] MEDS: ACETAMINOPHEN 325 MG TABLET PO PRN (22:06)
[2018-08-21] MEDS: IPRATRPIUM/ALBUTEROL 0.5/2.5MG 3 ML NEBU. NEB SCH ×4 (05:09→20:05)
[2018-08-21 06:49] VITALS: BP 114/78
--- NOTE | 2018-08-21 09:48 | PN ---
DATE: 08/21/2018 SUBJECTIVE: The patient is 72-year-old female who came in markedly septic, debilitated. She is making fairly good progress, overall. Electrolytes remain basically stable. She seems to be eating better overall and making some progress. She will probably still need to go to some type of nursing facility. OBJECTIVE: VITAL SIGNS: In any case, the patient's blood pressure 114/78, respiratory rate 20, pulse 80, afebrile. GENERAL: The patient is alert and oriented. LUNGS: Diminished throughout, poor movement of air, but clear. CARDIOVASCULAR: Stable. ABDOMEN: Soft, nontender. IMPRESSION: Therefore, sepsis, hypernatremia, hypokalemia, buxgmjkz-jw-bajirv protein malnutrition, cachexia and generalized weakness. CORINNA DIANE MD DR: BRADY/olivia JOB#: [id number] / [id number]
[2018-08-21] MEDS: LACTOBACILLUS RHAMNOSUS GG 1 CAPSULE. PO SCH ×2 (10:13→21:26)
[2018-08-21] MEDS: CALCIUM CARB/VIT D3 500/200 TABLET PO SCH ×2 (10:13→14:50)
[2018-08-21] MEDS: ROFLUMILAST 500 MCG TABLET PO SCH (10:13)
[2018-08-21] MEDS: buPROPion XL 150 MG TAB.ER.24H PO SCH (10:15)
[2018-08-21] MEDS: ASPIRIN 81 MG TAB.CHEW PO SCH (10:15)
[2018-08-21] MEDS: MAGNESIUM CHLORIDE ER 64 MG TABLET.ER PO SCH (10:15)
[2018-08-21] MEDS: amLODIPine BESYLATE 10 MG TABLET PO SCH (10:15)
[2018-08-21] MEDS: METOPROLOL SUCC 24HR ER 25 MG TAB.ER.24H. PO SCH (10:16)
[2018-08-21] MEDS: PANTOPRAZOLE IV 40 MG VIAL. IVP SCH (10:17)
[2018-08-21] MEDS ORDERED: guaiFENesin 300 MG/15 ML LIQUID PO PRN (10:45)
[2018-08-21] MEDS ORDERED: ACETAMINOPHEN 650 MG/20.3 ML SOLUTION. PO PRN (10:45)
[2018-08-21 11:17] VITALS: BP 100/63
[2018-08-21] MEDS: DRONABINOL 2.5 MG CAPSULE PO SCH ×2 (14:50→18:05)
[2018-08-21] MEDS: AA 3%/ELECTROLYTE-TPN SOLN/GLY 1,000 ML IV SCH (14:50)
[2018-08-21 15:23] VITALS: BP 110/72
[2018-08-21 18:46] VITALS: BP 93/56
[2018-08-21 20:36] VITALS: BP 102/64
[2018-08-21] MEDS: METOPROLOL TART IMMED RELEASE 25 MG TABLET PO SCH (21:00)
[2018-08-21] MEDS: ATORVASTATIN CALCIUM 20 MG TABLET PO SCH (21:26)
[2018-08-21 23:16] VITALS: BP 100/65
[2018-08-22] MEDS: AA 3%/ELECTROLYTE-TPN SOLN/GLY 1,000 ML IV SCH ×3 (04:44→23:00)
[2018-08-22] MEDS: IPRATRPIUM/ALBUTEROL 0.5/2.5MG 3 ML NEBU. NEB SCH ×4 (05:11→20:35)
[2018-08-22 05:50] VITALS: BP 101/52
[2018-08-22 06:34] LABS: BASO % 1 % (0-3); EOS % 0 % (0-3); HEMOGLOBIN 10.2 g/dL (12.0-15.5); LYMPH # 1.4 x10^3/uL (1.0-4.8); LYMPH % 24 % (24-48); MEAN CORPUSCULAR HEMOGLOBIN 30 pg (25-35); MEAN CORPUSCULAR HGB CONC 34 g/dL (31-37); MEAN CORPUSCULAR VOLUME 87 fL (79-100); MONO % 17 % (0-9); NEUT # 3.5 x10^3uL (1.8-7.7); NEUT % 59 % (31-73); PLATELET COUNT 214 x10^3/uL (140-400); RED BLOOD COUNT 3.47 x10^6/uL (3.50-5.40); RED CELL DISTRIBUTION WIDTH 15.9 % (11.5-14.5)
[2018-08-22 06:42] LABS: CALCIUM 7.3 mg/dL (8.5-10.1); GFR 54.3; POTASSIUM 4.4 mmol/L (3.5-5.1)
[2018-08-22] MEDS: amLODIPine BESYLATE 10 MG TABLET PO SCH (08:33)
[2018-08-22] MEDS: PANTOPRAZOLE IV 40 MG VIAL. IVP SCH (08:33)
[2018-08-22] MEDS: MAGNESIUM CHLORIDE ER 64 MG TABLET.ER PO SCH (08:34)
[2018-08-22] MEDS: CALCIUM CARB/VIT D3 500/200 TABLET PO SCH ×2 (08:34→17:00)
[2018-08-22] MEDS: ASPIRIN 81 MG TAB.CHEW PO SCH (08:34)
[2018-08-22] MEDS: buPROPion XL 150 MG TAB.ER.24H PO SCH (08:34)
[2018-08-22] MEDS: LACTOBACILLUS RHAMNOSUS GG 1 CAPSULE. PO SCH ×2 (08:34→20:47)
[2018-08-22] MEDS: METOPROLOL TART IMMED RELEASE 25 MG TABLET PO SCH ×2 (08:34→20:16)
[2018-08-22] MEDS: ROFLUMILAST 500 MCG TABLET PO SCH (08:34)
[2018-08-22] MEDS: DRONABINOL 2.5 MG CAPSULE PO SCH ×3 (11:30→16:30)
--- NOTE | 2018-08-22 12:00 | PN ---
DATE: 08/22/2018 SUBJECTIVE: The patient is resting comfortably, still making good progress overall. Still receiving IV antibiotic therapy for sepsis. OBJECTIVE: VITAL SIGNS: Blood pressure approximately 101/50, pulse 100, respiratory rate 20 and afebrile. GENERAL: The patient is alert, little bit more animated than she has been. LUNGS: Diminished, but clear. CARDIOVASCULAR: Tachycardic. ABDOMEN: Soft, nontender. NEUROLOGICAL: Little bit more alert than she has been. We will continue with IV Levaquin and make further arrangements for possible disposition. Labs are basically stable except for her low iron and her anemia, but other than that, she is on appropriate antibiotics for IV antibiotic therapy. IMPRESSION: Sepsis, hypernatremia, hypokalemia, etrtkwjm-rw-vtodqh protein malnutrition, cachexia, and generalized weakness. CORINNA DIANE MD DR: BRADY/olivia JOB#: [id number] / [id number]
[2018-08-22 13:15] VITALS: BP 108/64
[2018-08-22 14:39] VITALS: BP 130/74
[2018-08-22] MEDS: levoFLOXacin 750 MG TABLET PO SCH (18:15)
[2018-08-22 19:45] VITALS: BP 93/70
[2018-08-22] MEDS: ATORVASTATIN CALCIUM 20 MG TABLET PO SCH (20:47)
[2018-08-22 22:47] VITALS: BP 91/60
[2018-08-23 05:12] VITALS: BP 112/68
[2018-08-23] MEDS: IPRATRPIUM/ALBUTEROL 0.5/2.5MG 3 ML NEBU. NEB SCH ×4 (05:36→20:46)
[2018-08-23] MEDS: AA 3%/ELECTROLYTE-TPN SOLN/GLY 1,000 ML IV SCH (05:57)
--- NOTE | 2018-08-23 07:22 | PN ---
DATE: 08/21/2018 SUBJECTIVE: The patient denies any new medical or neurological complaints; however, she stated she does not feel good. OBJECTIVE: GENERAL: Well-developed, well-nourished female, not in acute distress. VITAL SIGNS: Blood pressure is ____, respiratory rate 18, pulse is 110 regular, temperature is 98.2, oxygen saturation is 95% on room air. HEENT: Normocephalic, atraumatic, otherwise unremarkable. NECK: Supple. Negative for carotid bruit, lymphadenopathy or thyromegaly. LUNGS: Clear to A and P. CARDIOVASCULAR: Regular rate and rhythm, normal S1, S2. ABDOMEN: Soft. Bowel sounds positive. EXTREMITIES: Negative for cyanosis, clubbing or pitting edema. NEUROLOGICAL EXAM: Mental Status: The patient is alert and oriented x 2. Speech is fluent. There is no language dysfunction. The patient recalls 1/3 immediately and after 1 and 3 minutes. Judgment and abstract thinking are fair. The patient denies hallucination or delusion. Cranial nerves are intact. No focal motor deficit. The strength was 4/5 throughout. Sensory examination revealed normal pinprick, light touch, vibratory and position senses. Deep tendon reflexes were asymmetric and hypoactive with absent Achilles responses. Gait was not tested. IMPRESSION: 1. Acute encephalopathy -- improved. 2. Dehydration -- improved. 3. Urinary tract infections. 4. History of stroke, depression, anxiety, and dementia. RECOMMENDATION: We will continue with current management initiated by Dr. Salinas and the patient is neurologically stable. M Kaur PIERCE MD DR: JASON/olivia JOB#: [id number] / [id number]
--- NOTE | 2018-08-23 07:37 | PN ---
DATE: 08/22/2018 REFERRING PHYSICIAN: Dr. Salinas SUBJECTIVE: The patient states she does not feel good; however, she denies headaches, visual disturbances, chest pain, shortness of breath or palpitation. OBJECTIVE: GENERAL: Well-developed, well-nourished female, not in acute distress. VITAL SIGNS: Blood pressure 101/52, respiratory rate 18, pulse is 110, temperature is 98.1, oxygen saturation is 96% on room air. HEENT: Normocephalic, atraumatic, otherwise unremarkable. NECK: Supple. Negative for carotid bruit, lymphadenopathy or thyromegaly. LUNGS: Clear to A and P. CARDIOVASCULAR: Regular rate and rhythm, normal S1, S2. ABDOMEN: Soft. Bowel sounds positive. EXTREMITIES: Negative for cyanosis, clubbing or pitting edema. NEUROLOGIC: Mental status: The patient is alert and oriented to time 2. Speech is fluent. There is no language dysfunction. Memory, judgment, and abstract thinking are fair. The patient denies hallucination or delusion. Cranial nerves are intact. No focal motor or sensory deficit. Deep tendon reflexes are symmetric and hypoactive with absent Achilles responses. Gait not tested. LABORATORY DATA: CBC revealed white blood cells of 6000, hemoglobin 10.2, hematocrit 30, platelet count 214,000. Chemistry revealed sodium of 134, potassium 4.4, chloride 99, CO2 of 28, BUN 18, creatinine 1, glucose 105 and calcium of 7.3. IMPRESSION: 1. Acute encephalopathy -- improved. 2. Dehydration with renal insufficiency -- improved. 3. History of stroke, depression, anxiety and dementia. 4. Urinary tract infections. 5. The patient is neurologically stable. RECOMMENDATIONS: Continue with current management and care. M Kaur PIERCE MD DR: JASON/olivia JOB#: [id number] / [id number]
[2018-08-23] MEDS: amLODIPine BESYLATE 10 MG TABLET PO SCH (09:00)
[2018-08-23] MEDS: buPROPion XL 150 MG TAB.ER.24H PO SCH (09:44)
[2018-08-23] MEDS: MAGNESIUM CHLORIDE ER 64 MG TABLET.ER PO SCH (09:44)
[2018-08-23] MEDS: CALCIUM CARB/VIT D3 500/200 TABLET PO SCH ×2 (09:45→16:44)
[2018-08-23] MEDS: METOPROLOL TART IMMED RELEASE 25 MG TABLET PO SCH ×2 (09:48→20:56)
[2018-08-23] MEDS: PANTOPRAZOLE IV 40 MG VIAL. IVP SCH (09:48)
[2018-08-23] MEDS: LACTOBACILLUS RHAMNOSUS GG 1 CAPSULE. PO SCH ×2 (09:49→20:54)
[2018-08-23] MEDS: ASPIRIN 81 MG TAB.CHEW PO SCH (09:49)
[2018-08-23] MEDS: ROFLUMILAST 500 MCG TABLET PO SCH (09:50)
[2018-08-23 10:52] VITALS: BP 121/70
[2018-08-23] MEDS: DRONABINOL 2.5 MG CAPSULE PO SCH ×2 (11:30→16:44)
[2018-08-23 14:53] VITALS: BP 100/62
[2018-08-23 20:23] VITALS: BP 135/81
[2018-08-23] MEDS: ATORVASTATIN CALCIUM 20 MG TABLET PO SCH (20:54)
[2018-08-23 22:48] VITALS: BP 143/80
[2018-08-24] MEDS: AA 3%/ELECTROLYTE-TPN SOLN/GLY 1,000 ML IV SCH ×2 (00:28→12:42)
[2018-08-24] MEDS: IPRATRPIUM/ALBUTEROL 0.5/2.5MG 3 ML NEBU. NEB SCH ×4 (05:26→20:49)
[2018-08-24 06:12] VITALS: BP 142/71
[2018-08-24] MEDS: PANTOPRAZOLE IV 40 MG VIAL. IVP SCH (08:00)
[2018-08-24] MEDS: amLODIPine BESYLATE 10 MG TABLET PO SCH (08:07)
[2018-08-24] MEDS: buPROPion XL 150 MG TAB.ER.24H PO SCH (08:07)
[2018-08-24] MEDS: LACTOBACILLUS RHAMNOSUS GG 1 CAPSULE. PO SCH ×2 (08:07→20:30)
[2018-08-24] MEDS: ROFLUMILAST 500 MCG TABLET PO SCH (08:07)
[2018-08-24] MEDS: MAGNESIUM CHLORIDE ER 64 MG TABLET.ER PO SCH (08:07)
[2018-08-24] MEDS: ASPIRIN 81 MG TAB.CHEW PO SCH (08:11)
[2018-08-24] MEDS: METOPROLOL TART IMMED RELEASE 25 MG TABLET PO SCH ×2 (08:11→20:38)
[2018-08-24] MEDS: CALCIUM CARB/VIT D3 500/200 TABLET PO SCH ×2 (08:11→17:00)
[2018-08-24 10:45] VITALS: BP 109/68
[2018-08-24] MEDS: DRONABINOL 2.5 MG CAPSULE PO SCH ×2 (12:41→16:30)
[2018-08-24 19:55] VITALS: BP 102/50
[2018-08-24] MEDS: levoFLOXacin 750 MG TABLET PO SCH (20:30)
[2018-08-24] MEDS: ATORVASTATIN CALCIUM 20 MG TABLET PO SCH (20:36)
--- NOTE | 2018-08-24 21:28 | PN ---
DATE: 08/23/2018 SUBJECTIVE: The patient denies any new medical or neurological complaints, but she stated she does not feel good. OBJECTIVE: GENERAL: Well-developed, well-nourished female, not in acute distress. VITAL SIGNS: Blood pressure is 112/68, respiratory rate 18, pulse is 107, temperature is 98.2, oxygen saturation 97% on room air. HEENT: Normocephalic, atraumatic, otherwise unremarkable. NECK: Supple. Negative for carotid bruit, lymphadenopathy or thyromegaly. LUNGS: Clear to A and P. CARDIOVASCULAR: Regular rhythm, normal S1, S2. ABDOMEN: Soft. Bowel sounds positive. EXTREMITIES: Negative for cyanosis, clubbing or pitting edema. NEUROLOGIC: Mental status: The patient is alert and oriented x 2. The speech is fluent. There is no language dysfunction. Memory, judgment, and abstract thinking are fair. The patient denies hallucination or delusion. Cranial nerves are intact. Motor examination revealed no focal muscle bulk was seen. The strength was 4/5 throughout. Sensory examination revealed normal pinprick and light touch senses throughout. Deep tendon reflexes were symmetric and hypoactive without pathologic responses with absent Achilles responses. Gait not tested. IMPRESSION AND PLAN: 1. Acute encephalopathy -- improved. 2. Renal insufficiency secondary to dehydration -- improved. 3. History of stroke, anxiety, dementia and depressions. 4. Urinary tract infections. 5. The patient is neurologically stable. M Kaur PIERCE MD DR: JASON/olivia JOB#: [id number] / [id number]
--- NOTE | 2018-08-24 21:34 | PN ---
DATE: 08/24/2018 SUBJECTIVE: The patient denies any new medical or neurological complaints. She feels better today. She eats and drinks and sleeps well. OBJECTIVE: GENERAL: Well-developed, well-nourished female, in no acute distress. VITAL SIGNS: Blood pressure is 142/71, respiratory rate 18, pulse is 87, temperature 98.1, oxygen saturation is 97% on room air. HEENT: Normocephalic, atraumatic, otherwise unremarkable. NECK: Supple. Negative for carotid bruit, lymphadenopathy or thyromegaly. LUNGS: Clear to A and P. CARDIOVASCULAR: Regular rate and rhythm, normal S1, S2. ABDOMEN: Soft, bowel sounds positive. EXTREMITIES: Negative for cyanosis, clubbing or edema. NEUROLOGICAL EXAMINATION: The patient is more alert and oriented x 2. Speech is fluent. There is no language dysfunction. Memory, judgment, and abstract thinking are fair. The patient denies hallucination. No delusion. Cranial nerves are intact. No focal motor or sensory deficits. Strength was 4/5 throughout. Sensory examination revealed normal pinprick, light touch, vibratory and position sense. Deep tendon reflexes are symmetric and hypoactive with absent Achilles responses. Gait not tested. IMPRESSION: 1. Acute encephalopathy -- resolved. 2. Multiple medical problems including anxiety, depression, and dementia. 3. Urinary tract infection. 4. Renal insufficiency -- improved. RECOMMENDATIONS: Continue with current management initiated by Dr. Salinas. The patient is neurologically stable. CORINNA SALINAS MD DR: BRADY/olivia JOB#: [id number] / [id number]
[2018-08-24 23:36] VITALS: BP 103/57
[2018-08-25] MEDS: AA 3%/ELECTROLYTE-TPN SOLN/GLY 1,000 ML IV SCH ×2 (01:00→13:30)
--- NOTE | 2018-08-25 05:14 | PN ---
DATE: 08/24/2018 SUBJECTIVE: The patient is a 72-year-old female who is in with multiple problems in the hospital. As she has been here, we are still trying to wait for insurance to get her approved for placement. The patient otherwise seems to be making fairly good progress. OBJECTIVE: VITAL SIGNS: Blood pressure 110/80, respiratory rate 18, pulse 100, afebrile, 96% saturation. HEENT: The patient's head atraumatic, normocephalic. Eyes: PERRLA without jaundice. LUNGS: Diminished, poor breath sounds. CARDIOVASCULAR: Regular sinus rhythm. ABDOMEN: Soft, nontender. SKIN: The patient is still has problem with pain in her buttock area where she has had a some of the skin breakdown from lying in bed so much. NEUROLOGIC: The patient otherwise is alert, seems to be speaking a little bit more appropriately now than she has been and making fairly good progress, still waiting for placement. IMPRESSION: Acute encephalopathy, dehydration, renal insufficiency, urinary tract infection, sepsis, hypernatremia, hypokalemia, moderate to severe protein malnutrition, cachexia and generalized weakness. CORINNA DIANE MD DR: BRADY/olivia JOB#: [id number] / [id number]
[2018-08-25] MEDS: IPRATRPIUM/ALBUTEROL 0.5/2.5MG 3 ML NEBU. NEB SCH ×3 (05:32→15:11)
[2018-08-25 06:15] VITALS: BP 108/70
[2018-08-25] MEDS: METOPROLOL TART IMMED RELEASE 25 MG TABLET PO SCH (08:51)
[2018-08-25] MEDS: ROFLUMILAST 500 MCG TABLET PO SCH (08:51)
[2018-08-25] MEDS: buPROPion XL 150 MG TAB.ER.24H PO SCH (08:51)
[2018-08-25] MEDS: amLODIPine BESYLATE 10 MG TABLET PO SCH (08:52)
[2018-08-25] MEDS: MAGNESIUM CHLORIDE ER 64 MG TABLET.ER PO SCH (08:54)
[2018-08-25] MEDS: LACTOBACILLUS RHAMNOSUS GG 1 CAPSULE. PO SCH (08:54)
[2018-08-25] MEDS: ASPIRIN 81 MG TAB.CHEW PO SCH (08:54)
[2018-08-25] MEDS: CALCIUM CARB/VIT D3 500/200 TABLET PO SCH (08:54)
[2018-08-25] MEDS: PANTOPRAZOLE IV 40 MG VIAL. IVP SCH (08:55)
[2018-08-25 11:15] VITALS: BP 116/70
[2018-08-25] MEDS ORDERED: [UNRECOGNIZED DRUG - CODE] PO (11:44)
[2018-08-25] MEDS ORDERED: DRON2.5C2 PO (11:44)
--- NOTE | 2018-08-25 11:47 | DISCH ---
DISCHARGE ORDERS CONDITION AT DISCHARGE: Stable Code Status: DNR/DNI SNF STAY <30 DAYS: Yes POST DISCHARGE ORDERS: ACTIVITY ORDERS: Activity as tolerated WEIGHT BEARING STATUS: As tolerated DIET AFTER DISCHARGE: Regular WOUND/INCISION CARE: No wound care needed, Other, see below CHECKS AFTER DISCHARGE: CHECKS AFTER DISCHARGE: Check blood press - daily TREATMENT/EQUIPMENT ORDERS: ADAPTIVE EQUIPMENT NEEDED: None, Four wheeled walker, Wheelchair DISCHARGE MEDICATIONS: Home Meds Active Scripts Dronabinol (DRONABINOL) 2.5 Mg Capsule, 2.5 MG PO BIDACLD for appetite stimulation for 30 Days, #60 CAP Prov:CORINNA DIANE MD 08/25/18 Calcium Carbonate/Vitamin D3 (Oyster Shell Calcium + D Cplt) 1 Each Tablet, 1 TAB PO BIDWMEALS for supplement, #60 TAB Prov:CORINNA DIANE MD 08/25/18 Bupropion Hcl (BUPROPION XL) 150 Mg Tab.er.24h, 150 MG PO DAILY for 30 Days, # 30 TAB.SR 5 Refills Prov:CORINNA DIANE MD 04/11/18 Nitroglycerin (NITROSTAT) 0.4 Mg Tab.subl, 0.4 MG SL PRN Q5MIN PRN for CHEST PAIN, #14 TAB Prov:CORINNA DIANE MD 02/17/18 Metoprolol Succinate (METOPROLOL SUCCINATE ( XL )) 25 Mg Tab.er.24h, 25 MG PO DAILY, #30 TAB.SR 2 Refills Prov:CORINNA DIANE MD 02/17/18 Amlodipine Besylate (AMLODIPINE BESYLATE) 10 Mg Tablet, 10 MG PO DAILY, #30 TAB 2 Refills Prov:CORINNA DIANE MD 02/17/18 Acetaminophen (TYLENOL) 325 Mg Tablet, 650 MG PO PRN Q6HRS PRN for PAIN / TEMP, #30 TAB Prov:CORINNA DIANE MD 02/17/18 [Magnesium Chloride Er] 64 MG TABLET.ER No Conflict Check, 64 MG PO DAILY, #30 TAB 2 Refills Prov:CORINNA DIANE MD 02/17/18 Guaifenesin (MUCINEX) 600 Mg Tablet.er, 600 MG PO BID, #60 TAB.SR 2 Refills Prov:CORINNA DIANE MD 02/17/18 Roflumilast (DALIRESP) 500 Mcg Tablet, 500 MCG PO DAILY, #30 TAB 2 Refills Prov:CORINNA DIANE MD 02/17/18 Albuterol Sulfate (ALBUTEROL SULFATE CONC NEB SOLN) 2.5 Mg/0.5 Ml Vial.neb, 1 VIAL NEB Q4HRS PRN for SHORTNESS OF BREATH, #60 VIAL 1 Refill Prov:YOVANNY TRAMMELL DO 02/04/18 Esomeprazole Magnesium (NEXIUM CAPSULE) 20 Mg Capsule., 1 CAP PO DAILY, #90 CAP 3 Refills Prov:CORINNA DIANE MD 01/26/18 Ipratropium/Albuterol Sulfate (DUONEB 0.5-3(2.5) MG/3 ML) 3 Ml Ampul.neb, 3 ML NEB RTQID, #120 EACH 3 Refills Prov:CORINNA DIANE MD 01/26/18 Reported Medications Aspirin (ASPIR-LOW) 81 Mg Tablet., 1 TAB PO DAILY for HEART HEALTH LAST DOSE GIVEN: DATE: TODAY TIME: AM NEXT DOSE DUE: DATE: TOMORROW TIME: AM 01/24/18 Atorvastatin Calcium (ATORVASTATIN CALCIUM) 40 Mg Tablet, 1 TAB PO HS for HIGH CHOLESTEROL LAST DOSE GIVEN: YESTURDAY AT BEDTIME NEXT DOSE DUE: DATE: TODAY TIME: AT BEDTIME DATE: TODAY TIME: AT BEDTIME 01/24/18 CORINNA DIANE MD Aug 25, 2018 11:47
[2018-08-25] MEDS: DRONABINOL 2.5 MG CAPSULE PO SCH (11:54)
--- NOTE | 2018-08-26 12:33 | PN ---
DATE: 08/25/2018 SUBJECTIVE: The patient denies any new medical or neurological complaints. OBJECTIVE: GENERAL: Well-developed, well-nourished female, not in acute distress. VITAL SIGNS: Blood pressure 116/70, respiratory rate 20, pulse is 94, temperature 97.5, oxygen saturation 93% on room air. HEENT: Normocephalic, atraumatic, otherwise unremarkable. NECK: Supple. Negative for carotid bruit, lymphadenopathy, or thyromegaly. LUNGS: Clear to A and P. CARDIOVASCULAR: Regular rate and rhythm. Normal S1, S2. There is no S3, S4 or murmur. ABDOMEN: Soft. Bowel sounds positive. EXTREMITIES: Negative for cyanosis, clubbing, or pitting edema. NEUROLOGICAL EXAMINATION: Mental Status: The patient is alert and oriented x 2. Speech is fluent. There is no language dysfunction. Memory, judgement, abstract thinking fair. The patient denies hallucination or delusion. Cranial nerves are grossly intact. No focal motor or sensory deficit. The strength was 4/5 throughout. Sensory examination revealed normal pinprick and light touch senses. Deep tendon reflexes were symmetric and hypoactive with absent Achilles responses. Gait not tested. IMPRESSION: 1. Acute encephalopathy - improved, likely due to metabolic and infectious process. 2. Marked dehydration with renal insufficiency - resolved. 3. Multiple medical problems include anxiety, dementia, and stroke. 4. Urinary tract infections being treated during this hospitalization. RECOMMENDATIONS: We will continue with current management initiated by Dr. Salinas. The patient is neurologically stable. M Kaur PIERCE MD DR: JASON/olivia JOB#: [id number] / [id number]
== END 2018-08-25 16:52 | DRG 871 ==
LOC: ER 12:27 → ICU 13:53 → 1 SOUTH 08-18 15:23
PROVIDERS: ADMIT Family Medicine; ATTEND Family Medicine
DX: A41.9 Sepsis, unspecified organism (principal); E43 Unspecified severe protein-calorie malnutrition; G93.41 Metabolic encephalopathy; E41 Nutritional marasmus; E87.0 Hyperosmolality and hypernatremia; E87.1 Hypo-osmolality and hyponatremia; G91.9 Hydrocephalus, unspecified; N39.0 Urinary tract infection, site not specified; Z68.1 Body mass index [BMI] 19.9 or less, adult; E03.9 Hypothyroidism, unspecified; E11.9 Type 2 diabetes mellitus without complications; E78.00 Pure hypercholesterolemia, unspecified; E83.41 Hypermagnesemia; E86.0 Dehydration; E87.6 Hypokalemia; F03.90 Unspecified dementia, unspecified severity, without behavioral disturbance, psychotic disturbance, mood disturbance, and anxiety; F25.9 Schizoaffective disorder, unspecified; F32.9 Major depressive disorder, single episode, unspecified; F41.9 Anxiety disorder, unspecified; I11.0 Hypertensive heart disease with heart failure; D64.9 Anemia, unspecified; H26.9 Unspecified cataract; M19.90 Unspecified osteoarthritis, unspecified site; J03.90 Acute tonsillitis, unspecified; I25.10 Atherosclerotic heart disease of native coronary artery without angina pectoris; I50.9 Heart failure, unspecified; J44.9 Chronic obstructive pulmonary disease, unspecified; K21.9 Gastro-esophageal reflux disease without esophagitis; L89.309 Pressure ulcer of unspecified buttock, unspecified stage; Z86.73 Personal history of transient ischemic attack (TIA), and cerebral infarction without residual deficits; Z90.49 Acquired absence of other specified parts of digestive tract; Z90.710 Acquired absence of both cervix and uterus; Z87.01 Personal history of pneumonia (recurrent); Z79.899 Other long term (current) drug therapy
CPT/HCPCS: 36415; 36600; 51702; 70450; 71045; 74018; 80048; 80053; 80307; 81001; 82306; 82550; 82607; 82803; 82947; 83540; 83550; 83605; 83690; 83735; 83880; 84132; 84134; 84443; 84484; 85007; 85025; 85610; 85730; 87040; 87086; 87186; 87641; 90471; 90756; 93005; 94640; 96361; 96365; 96375; 99292; C9113; J0696; J1956; J2543; J3475; J3480; J3490; J7050; J7120; J7620; Q0167; 97110; 97116; 97530; 97535; 99291-25; J7030; Q2035